=== PATIENT | male | born 1950 | race Caucasian/White ===

== ENCOUNTER 2020-01-04 07:45 | Day surgery (SDC) | payer MEDICARE, MEDICAID, SELFPAY ==
[2020-01-03 15:33] VITALS: BMI 20.7
[2020-01-04 08:14] VITALS: BP 155/111; PULSE 104; RESP 18; TEMP 37.2; O2SAT 98
[2020-01-04] MEDS: sodium chloride 0.9% 1,000 ML 30 ML IV (08:35)
--- NOTE | 2020-01-04 09:15 | ANES.PREANE2 ---
Pre-Anesthetic Assessment Pre-Anesthetic Assessment: Height/Weight: Height 1.83 m Weight 69.4 kg Temp Pulse Resp BP Pulse Ox 98.9 F 104 H 18 155/111 98 01/04/20 08:14 01/04/20 08:14 01/04/20 08:14 01/04/20 08:14 01/04/20 08:14 Preop Diagnosis: inguinal hernia Proposed Procedure: Operation Date: 01/04/20 09:00 Proposed Procedures p Inguinal Hernia Repair w/ Mesh(Right) - Dawson Burrell MD Familial anesthetic complications: none Last intake: Intake Last Liquid Date 01/03/20 Last Liquid Time 20:30 Last Solid Date 01/03/20 Last Solid Time 20:30 Social: Social History: No alcohol and No tobacco Exam: Pre-Anes Outpt Exam: alert, oriented x 3, clear to auscultation bilaterally and regular rate & rhythm Airway: MP: 2 Dentition: Full CV/HEM: CV/HEM: HTN Metabolic: Metabolic: Hyperlipidemia Musc/skel: Musc/skel: Lower Back Pain Anesthetic Plan: ASA status: 2 Anesthesia: General Other: History was obtained from chart review Risk of > 500 ml blood loss (7ml/kg in children): No Meds/Allergies Current Medications: Current Medications Generic Name Dose Route Start Last Admin Trade Name Freq PRN Reason Stop Dose Admin Sodium Chloride 1,000 mls @ 30 ml s/hr 01/04/20 08:00 01/04/20 08:35 Sodium Chloride 0.9% IV 01/05/20 07:59 30 mls/hr .Q24H VEDA Administration Data Anesthesia Cardiac Studies: No Data to Display
--- NOTE | 2020-01-04 09:15 | W.PM.OPSUD ---
Surgery/Procedure H&P Update DATE OF PROCEDURE: January 04, 2020 DATE H&P PERFORMED: 01/02/20 H&P UPDATE INFORMATION: No changes to prior documentation PLANNED PROCEDURE: Operation Date: 01/04/20 09:00 Proposed Procedures p Inguinal Hernia Repair w/ Mesh(Right) - Dawson Burrell MD
--- NOTE | 2020-01-04 10:11 | PM.OP ---
Operative Report Date of procedure: January 04, 2020 Pre-op Diagnosis: Right inguinal hernia. Post-op Diagnosis: Right indirect inguinal hernia. Procedure Done: Repair of right inguinal hernia with mesh. Implants: Medium mesh plug/onlay patch. Pathology: none sent Surgeon: Dawson Burrell Anesthesia: MAC Estimated blood loss (mL): 5 Complications: None. Condition: stable Disposition: same day Procedure: The patient was brought to the operating room and was placed in a supine position on the operating room table. A monitored anesthetic was induced. The right inguinal region was prepped and draped in a sterile fashion. A combination of 1% lidocaine and 0.5% bupivacaine with 1-200,000 parts epinephrine was used for local anesthesia throughout the procedure. A transverse incision was carried out above the level of the pubic tubercle. Cautery was used to divide the subcutaneous tissue down to the external oblique aponeurosis which was incised in parallel with its fibers over the inguinal canal. The spermatic cord was looped with a Barrington drain. An indirect hernia was found at the internal ring. The hernia sac and contents were carefully freed from the cord structures down to the internal ring and the hernia sac was reduced. A medium mesh plug was used to hold the hernia sac in a reduced position and was held in place with a suture of 0 Prolene that was used to connect the conjoined area medially to the reflecting edge of Poupart's ligament laterally. The onlay patch was anchored at the tubercle with a suture of 0 Prolene and was laid along the inguinal canal floor, allowing the cord structures to pass through the precut hole in the mesh. The two wings of mesh were sewn to each other above the level of the internal ring with a suture of 0 Prolene. The external oblique aponeurosis was closed over the top of the cord using a running suture of 3-0 Vicryl. The wound was irrigated with saline. The subcutaneous tissue was brought together with a simple suture of 3-0 Vicryl and the skin was approximated using a running subcuticular suture of 3-0 Vicryl. Benzoin and Steri-Strips were placed over the incision and a sterile bandage followed. The patient was taken to the recovery area in stable condition postoperatively.
[2020-01-04 10:15] VITALS: BP 134/87; PULSE 112; RESP 20; TEMP 36.4; O2SAT 95
[2020-01-04 10:34] VITALS: BP 137/69; PULSE 103; RESP 20; TEMP 36.4; O2SAT 99
== END 2020-01-04 11:01 | disposition home or self-care (01) ==
PROVIDERS: PCP Family Medicine; Visit Provider Surgery
PROC: (CPT 49505; principal; 2020-01-04 09:00)
DX: K40.90 Unilateral inguinal hernia, without obstruction or gangrene, not specified as recurrent (principal); K21.9 Gastro-esophageal reflux disease without esophagitis; I10 Essential (primary) hypertension; E78.5 Hyperlipidemia, unspecified
CPT/HCPCS: 49505; 12345; J0690; J2001; J2250; J2704; J3010; J3490; J7030

== ENCOUNTER 2020-08-11 16:39 | Emergency (ER) | payer MEDICARE, MEDICAID, SELFPAY ==
--- NOTE | 2020-08-11 16:58 | XRR_ITS ---
PROCEDURE INFORMATION: Exam: XR Chest, 1 View Exam date and time: 08/11/2020 4:59 PM Age: 70 years old Clinical indication: Pain; Other: Weakness TECHNIQUE: Imaging protocol: XR of the chest Views: 1 view. COMPARISON: CR Chest 2 views* [id number] 01/24/2016 7:19 AM FINDINGS: Lungs: The visualized portions of the lungs are clear. Pleural space: Unremarkable. No pleural effusion. No pneumothorax. Heart/Mediastinum: Heart is within normal limits of size. Vasculature: Descending thoracic aorta is somewhat tortuous. Bones/joints: Unremarkable. Other findings: Findings are not significantly changed from the 01/24/2016. XR/XR chest 1V portable [id number] IMPRESSION: No acute infiltrate.
--- NOTE | 2020-08-11 16:58 | ECG_ITS ---
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 Measurements Intervals [place] Rate: 97 P: 7 IL: 167 QRS: -40 QRSD: 93 T: 6 QT: 377 QTc: 479 Interpretive Statements SINUS RHYTHM LEFT AXIS DEVIATION [QRS AXIS < -30] POSSIBLE LEFT VENTRICULAR HYPERTROPHY [VOLTAGE CRITERIA PLUS LAE OR QRS WIDENING] No previous ECG available for comparison Electronically Signed On 08-12-2020 16:51:28 REHAB DIRECTOR OCCUPATIONAL THERAPIST by Asael Ibarra M.D. [email or web address]
--- NOTE | 2020-08-11 16:58 | CTR_ITS ---
PROCEDURE INFORMATION: Exam: CT Head Without Contrast Exam date and time: 08/11/2020 5:06 PM Age: 70 years old Clinical indication: Patient HX: C/O dizziness and weakness since cataract surgery 2 weeks ago TECHNIQUE: Imaging protocol: Computed tomography of the head without contrast. Radiation optimization: All CT scans at this facility use at least one of these dose optimization techniques: automated exposure control; mA and/or kV adjustment per patient size (includes targeted exams where dose is matched to clinical indication); or iterative reconstruction. 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 There is moderate cortical atrophy. There is no intracranial mass, hemorrhage or edema. Cerebral ventricles: No ventriculomegaly. Bones/joints: Unremarkable. No acute fracture. Paranasal sinuses: There is some fluid in the left sphenoid sinus which may represent some mild sinusitis. Mastoid air cells: There is minimal opacification of the mastoid tips which may not be clinically significant. Soft tissues: Unremarkable. CT/CT head wo con* [id number] IMPRESSION: 1. No acute intracranial finding. 2. Mild left sphenoid sinus disease. Radiation Dose CTDIVOL = (mGy): DLP = 754.83 (mGy-cm)
[2020-08-11 17:01] VITALS: BP 145/108; PULSE 101; RESP 14; TEMP 36.9; O2SAT 96; BMI 20.3
--- NOTE | 2020-08-11 17:07 | ED_ITS ---
HPI - Weakness General: Chief complaint: Weakness Stated complaint: WEAKNESS Time Seen by Provider: 08/11/20 16:53 Source: patient Mode of arrival: ambulatory Limitations: no limitations History of Present Illness: HPI Narrative: 70-year-old male states he had cataract surgery on his right eye 2 weeks ago. He states that since then he has just been feeling generally weak. Per family patient is a lot more activity than normal. He has had mild headaches. He denies any cough or fever. Denies any vomiting or diarrhea. Denies any worsening or improving factors. Associated symptoms: Denies chest pain, chills, dysuria, easy bruising, fever(s), nausea or vomiting Review of Systems Const: Denies: fever(s), chills, body aches or change in appetite Eyes: Denies: blurry vision or eye discomfort ENMT: Denies: throat pain or dental pain Card: Denies: chest pain Resp: Denies: dyspnea GI: Denies: abdominal pain, nausea, vomiting or diarrhea : Denies: dysuria Musc: Denies: neck pain or back pain Skin/Breast: Denies: rash Neuro: Reports: weakness in extremities Psych: Denies: depression Mendez/Lymph: Denies: easy bruising All/Imm: Denies: urticaria Physical Exam Const: COMMON NORMALS: no acute distress, patient oriented x3 and healthy appearing HENMT: COMMON NORMALS: normocephalic and atraumatic HEAD & SCALP: normocephalic and atraumatic Eye: COMMON NORMALS: Equal, round and reactive pupils present and EOMs intact bilaterally PUPIL: Yes Equal, round and reactive pupils present Neck/C-Spine: COMMON NORMALS: full ROM and supple Chest: COMMONS NORMALS: normal inspection of the chest and normal palpation of entire chest wall Resp: COMMON NORMALS: normal respiratory effort, No retractions, No use of ac cessory muscles and clear to auscultation bilaterally AUSCULTATION: clear to auscultation bilaterally Cardio: COMMON NORMALS: regular rate, regular rhythm and No murmurs present (Cardio) RATE: regular rate RHYTHM: regular rhythm GI: COMMON NORMALS: Normal to inspection, nondistended, normoactive bowel sounds present, Soft to palpation, non-tender and no masses PALPATION: Yes Soft to palpation Extremity: COMMON NORMALS: normal to inspection and full ROM Neuro: COMMON NORMALS: patient oriented x3, moves all extremities and no focal motor deficits Psych: COMMON NORMALS: mental status grossly normal, Normal thought process present and cooperative THOUGHT PROCESS: Normal thought process present Skin: COMMON NORMALS: no rashes or lesions noted and no wounds GENERAL SKIN EXAM: no rashes or lesions noted Course Vital Signs: Vital signs: Vital Signs Temperature 98.5 F 08/11/20 17:01 Pulse Rate 92 08/11/20 18:51 Respiratory Rate 18 08/11/20 18:51 Blood Pressure 156/107 08/11/20 18:51 Pulse Oximetry 96 08/11/20 18:51 MDM - Weakness MDM Narrative: Medical decision making narrative: Patient presents here with generalized weakness that is improved with IV fluids. Patient's blood work here is all normal including a normal CT head. Patient is stable for discharge and is to follow-up with PCP and return if worsening. Lab Data: Labs: Lab Results 08/11/20 08/11/20 08/11/20 Range/Units 17:12 17:12 17:49 WBC 9.2 (4.0-10.0) 10^3/ uL RBC 4.77 (4.1-5.3) 10^6/u L Hgb 14.2 (11.7-16.6) g/dL Hct 42.0 (42.0-52.0) % MCV 88.1 (80-94) fL MCH 29.8 (28.0-34.0) pg MCHC 33.8 (30.0-36.0) g/dL RDW 12.8 (12.1-15.1) % Plt Count 285 (130-400) 10^3/c mm MPV 9.9 (7.4-10.4) fL Neut % (Auto) 73.9 % Lymph % (Auto) 17.7 % Gregg % (Auto) 7.4 % Eos % (Auto) 0.5 % Baso % (Auto) 0.3 % Neut # (Auto) 6.79 (1.8-7.7) 10^3/u L Lymph # (Auto) 1.6 (0.8-4.8) 10^3/u L Gregg # (Auto) 0.7 (0.2-0.9) 10^3/u L Eos # (Auto) 0.1 (0.0-0.8) 10^3/u L Baso # (Auto) 0.0 (0.0-0.1) 10^3/u L Nucleated RBC % (a uto) 0 % Nucleated RBCs # 0.0 /100WBC Sodium 141 (136-145) mmol/L Potassium 3.7 (3.5-5.1) mmol/L Chloride 104 (98-107) mmol/L Carbon Dioxide 25 (22-29) mmol/L Anion Gap 15.7 (5-19) BUN 12 (8-23) mg/dL Creatinine 0.7 (0.7-1.2) mg/dL GFR Calculation 112.1 (90-130) mL/min Glucose 104 (65-115) mg/dL Calculated Osmolal ity 292 (285-295) mOsm/k g Calcium 8.8 (8.5-10.5) mg/dL Total Bilirubin 0.8 (0.15-1.2) mg/dL AST 36 (0-40) U/L ALT 38 (0-41) U/L Alkaline Phosphata se 47 (40-130) IU/L Total Protein 6.9 (6.6-8.7) g/dL Albumin 3.8 (3.5-5.2) g/dL Globulin 3.1 (1.3-4.6) g/dL Urine Color Yellow (Yellow) Urine Appearance Clear (CLEAR) Urine pH 7 (5-7) Ur Specific Gravit y 1.015 (1.005-1.030) Urine Protein Neg (Negative) Urine Glucose (UA) Norm (Normal) Urine Ketones 2+ H (Negative) Urine Blood Neg (Negative) Urine Nitrate Negative (Negative) Urine Bilirubin Neg (Negative) Urine Urobilinogen 1 H (Negative) mg/dL Ur Leukocyte Moraima ase Negative (Negative) Imaging Data^: CT Head: Radiologist's impression: [facility] [address] [place] [address] CT Scan Report Signed Patient: Fito Haywood Unit #: [id number] : 1950 Age/Sex: 70 / M ADM Date: 08/11/20 Loc: ER Room/Bed: Attending Dr: Ordering Provider/Ordering MD: Azar Mendoza MD Date of Service: 08/11/20 Procedure(s): CT head wo con* [id number] Accession Number(s): [id number] Report Number: [id number] PROCEDURE INFORMATION: Exam: CT Head Without Contrast Exam date and time: 08/11/2020 5:06 PM Age: 70 years old Clinical indication: Patient HX: C/O dizziness and weakness since cataract surgery 2 weeks ago TECHNIQUE: Imaging protocol: Computed tomography of the head without contrast. Radiation optimization: All CT scans at this facility use at least one of these dose optimization techniques: automated exposure control; mA and/or kV adjustment per patient size (includes targeted exams where dose is matched to clinical indication); or iterative reconstruction. 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 There is moderate cortical atrophy. There is no intracranial mass, hemorrhage or edema. Cerebral ventricles: No ventriculomegaly. Bones/joints: Unremarkable. No acute fracture. Paranasal sinuses: There is some fluid in the left sphenoid sinus which may represent some mild sinusitis. Mastoid air cells: There is minimal opacification of the mastoid tips which may not be clinically significant. Soft tissues: Unremarkable. CT/CT head wo con* [id number] IMPRESSION: 1. No acute intracranial finding. 2. Mild left sphenoid sinus disease. CXR: Radiologist's impression: [address] [address] XRay Report Signed Patient: Fito Haywood Unit #: [id number] : 1950 Age/Sex: 70 / M ADM Date: 08/11/20 Loc: ER Room/Bed: Attending Dr: Ordering Provider/Ordering MD: Azar Mendoza MD Date of Service: 08/11/20 Procedure(s): XR chest 1V portable [id number] Accession Number(s): [id number] Report Number: [id number] PROCEDURE INFORMATION: Exam: XR Chest, 1 View Exam date and time: 08/11/2020 4:59 PM Age: 70 years old Clinical indication: Pain; Other: Weakness TECHNIQUE: Imaging protocol: XR of the chest Views: 1 view. COMPARISON: CR Chest 2 views* [id number] 01/24/2016 7:19 AM FINDINGS: Lungs: The visualized portions of the lungs are clear. Pleural space: Unremarkable. No pleural effusion. No pneumothorax. Heart/Mediastinum: Heart is within normal limits of size. Vasculature: Descending thoracic aorta is somewhat tortuous. Bones/joints: Unremarkable. Other findings: Findings are not significantly changed from the 01/24/2016. XR/XR chest 1V portable [id number] IMPRESSION: No acute infiltrate. EKG Data^: EKG 1: Attestation: I personally reviewed and interpreted this EKG as follows: EKG interpretation date: 08/11/20 EKG interpretation time: 17:47 Interpretation: nsr hr [address] or t wave abnormalities qrs 93 qtc 431 Discharge Plan Discharge Patient Disposition: Home Clinical Impression: Weakness Condition: Stable Prescriptions: No Action pantoprazole 40 mg tablet,delayed release (DR/EC) 40 mg PO DAILY RF: 0 DOK 100 mg capsule 100 mg PO DAILY RF: 0 hydrocodone-acetaminophen 5-325 mg tablet 1 - 2 tab PO Q5H PRN (Reason: pain) Qty: 30 RF: 0 Discharge Orders: Discharge ED (Routine); Ordered 08/11/20 Ordered By: Azar Mendoza Referrals: Wilman Anand MD [Primary Care Provider] - 1-3 days Discharge Diet: Advance as tolerated Discharge Activity: Resume usual activity Patient Instructions: Weakness (ED) Coding Level of Care Code ED [place] Machine Tender for Chg Fwd Exam Comprehensive
[2020-08-11 17:19] LABS: Basophils % 0.3 %; Eosinophils # 0.1 10^3/uL (0.0-0.8); Eosinophils % 0.5 %; Hemoglobin 14.2 g/dL (11.7-16.6); Lymphocytes # 1.6 10^3/uL (0.8-4.8); Lymphocytes % 17.7 %; Mean Corpuscular HGB Conc 33.8 g/dL (30.0-36.0); Mean Corpuscular Hemoglobin 29.8 pg (28.0-34.0); Mean Corpuscular Volume 88.1 fL (80-94); Mean Platelet Volume 9.9 fL (7.4-10.4); Monocytes # 0.7 10^3/uL (0.2-0.9); Monocytes % 7.4 %; Neutrophils # 6.79 10^3/uL (1.8-7.7); Neutrophils % 73.9 %; Nucleated Red Blood Cells % 0 %; Platelet Count 285 10^3/cmm (130-400); Red Blood Count 4.77 10^6/uL (4.1-5.3); Red Cell Distribution Width 12.8 % (12.1-15.1); White Blood Count 9.2 10^3/uL (4.0-10.0)
[2020-08-11] MEDS: sodium chloride 0.9% 1,000 ML 999 ML IV (17:27)
[2020-08-11 17:37] LABS: Alanine Aminotransferase 38 U/L (0-41); Albumin Level 3.8 g/dL (3.5-5.2); Alkaline Phosphatase 47 IU/L (40-130); Anion Gap 15.7 (5-19); Aspartate Amino Transferase 36 U/L (0-40); Blood Urea Nitrogen 12 mg/dL (8-23); Calcium 8.8 mg/dL (8.5-10.5); Carbon Dioxide 25 mmol/L (22-29); Chloride 104 mmol/L (98-107); Globulin 3.1 g/dL (1.3-4.6); Glomerular Filtration Rate 112.1 mL/min (90-130); Glucose 104 mg/dL (65-115); Osmolality Calculated 292 mOsm/kg (285-295); Potassium 3.7 mmol/L (3.5-5.1); Sodium 141 mmol/L (136-145); Total Bilirubin 0.8 mg/dL (0.15-1.2); Total Protein 6.9 g/dL (6.6-8.7)
[2020-08-11 18:11] LABS: Add Urine Microscopic? NO; Bilirubin Urine Neg (Negative); Blood Urine Neg (Negative); Glucose Urine UA Norm (Normal); Ketones Urine 2+ (Negative); Leukocyte Esterase Urine Negative (Negative); Nitrate Urine Negative (Negative); Protein Urine Neg (Negative); Specific Gravity, Urine 1.015 (1.005-1.030); Urine Appearance Clear (CLEAR); Urine Color Yellow (Yellow); Urobilinogen Urine 1 mg/dL (Negative); pH Urine 7 (5-7)
[2020-08-11 18:51] VITALS: BP 156/107; PULSE 92; RESP 18; O2SAT 96
== END 2020-08-11 19:20 | disposition home or self-care (01) ==
PROVIDERS: Emergency Provider Emergency Medicine; PCP Family Medicine
DX: R53.1 Weakness (principal)
CPT/HCPCS: 12345; 70450; 71045; 80053; 81003; 85025; 93005; 96360; 99282; 99283; J7030

== ENCOUNTER 2020-12-09 06:00 | Outpatient (RCR) | payer MEDICARE, MEDICAID, SELFPAY | END 2020-12-13 23:59 | disposition home or self-care (01) | LOC: SPT 06:00 | PROVIDERS: PCP Family Medicine; Referring Provider Family Medicine; Visit Provider Family Medicine | DX: H83.09 Labyrinthitis, unspecified ear (principal) | CPT/HCPCS: 95992; 97162 ==

== ENCOUNTER 2021-02-21 09:13 | Outpatient (CLI) | payer MEDICARE, MEDICAID, SELFPAY ==
--- NOTE | 2021-02-21 | USCV_ITS ---
Fito Haywood Age: 70 Gender: M : 1950 Exam Date: 02/21/2021 09:22 Ordering Phys: Petrona Jones MD ([email or web address]) Technologist: Jennifer Ramirez Exam Location: [facility] [place] Indication: syncope and collapse BP: / HR: 71 Rhythm: Sinus Technical Quality: Adequate MEASUREMENTS (Male / Female) Normal Values 2D ECHO LV Diastolic Diameter PLAX 3.7 cm 4.2 - 5.9 / 3.9 - 5.3 cm LV Systolic Diameter PLAX 2.3 cm IVS Diastolic Thickness 1.3 cm 0.6 - 1.0 / 0.6 - 0.9 cm IVS Systolic Thickness 1.7 cm LVPW Diastolic Thickness 1.2 cm 0.6 - 1.0 / 0.6 - 0.9 cm LVPW Systolic Thickness 1.8 cm LVOT Diameter 2.0 cm LV Ejection Fraction 2D Teich 70.8 % LV Ejection Fraction MOD 2C 58.1 % LV Ejection Fraction 2C AL 59.4 % LA Diameter 3.7 cm LA Width 3.4 cm LA Height 4.1 cm RA Width 3.2 cm RA Height 4.4 cm Aorta at Sinotubular Diameter 3.2 cm M-MODE LV Diastolic Diameter MM 5.6 cm 4.2 - 5.9 / 3.9 - 5.3 cm LV Systolic Diameter MM 4.4 cm LV Ejection Fraction MM Teich 40.7 % IVS Diastolic Thickness MM 0.4 cm 0.6 - 1.0 / 0.6 - 0.9 cm IVS Systolic Thickness MM 0.4 cm LVPW Diastolic Thickness MM 0.9 cm 0.6 - 1.0 / 0.6 - 0.9 cm LVPW Systolic Thickness MM 1.7 cm Aortic Annulus Diameter 3.6 cm LA Ao Ratio MM 1.1 MV E Point Septal Separation 0.8 cm DOPPLER AV Peak Velocity 84.0 cm/s LVOT Peak Velocity 76.0 cm/s AV Area Cont Eq vti 3.3 cm squared AV Area Cont Eq pk 2.9 cm squared MV Peak Velocity 111.0 cm/s MV Area PHT 4.2 cm squared Mitral E to A Ratio 0.9 MV E' Velocity 43.0 cm/s Mitral E to MV E' Ratio 9.9 Mitral E to LV E' Lateral Ratio 9.2 Mitral E to LV E' Septal Ratio 10.8 TR Peak Velocity 48.0 cm/s TR Peak Gradient 0.9 mmHg Right Atrial Pressure 3.0 mmHg Pulmonary Artery Systolic Pressu 3.9 mmHg PV Peak Velocity 63.0 cm/s RV Acceleration Time 0.1 s RV Ejection Time 0.3 s RV AcT/ET 0.4 FINDINGS Left Ventricle Normal left ventricular cavity size. Normal left ventricular systolic function. No regional wall motion abnormalities. Left ventricular ejection fraction is estimated at 60 %. Grade I/IV diastolic dysfunction (abnormal relaxation filling pattern), normal to mildly elevated filling pressures. Right Ventricle The right ventricle is normal in size and function. Right Atrium The right atrium is normal in size. Left Atrium The left atrium is normal in size. Mitral Valve Mildly thickened mitral valve. No mitral valve stenosis. Moderate mitral valve regurgitation. Aortic Valve Aortic valve sclerosis. No aortic valve stenosis. Trace aortic valve regurgitation. Tricuspid Valve Structurally normal tricuspid valve without significant stenosis or regurgitation. Pulmonary artery systolic pressure is normal. Pulmonic Valve Mild pulmonary valve regurgitation. Pericardium Normal pericardium without effusion. Aorta Normal ascending aorta dimension. CONCLUSIONS 1-Normal left ventricular cavity size. Normal left ventricular systolic function. No regional wall motion abnormalities. Left ventricular ejection fraction is estimated at 60 %. Grade I/IV diastolic dysfunction (abnormal relaxation filling pattern), normal to mildly elevated filling pressures. 2-Mildly thickened mitral valve. No mitral valve stenosis. Moderate mitral valve regurgitation. 3-Aortic valve sclerosis. No aortic valve stenosis. Trace aortic valve regurgitation. 4-There is no pericardial effusion. 5-Pulmonary artery systolic pressure is within normal limits. 6-Right atrial pressure is around 5 mm of mercury. 7-There are no prior echocardiogram studies to compare. Petrona Jones MD (Electronically Signed) Final Date: 25 February 2021 17:26 S
== END 2021-02-21 09:14 | disposition home or self-care (01) ==
LOC: US 09:13
PROVIDERS: PCP Family Medicine; Visit Provider Internal Medicine Cardiovascular Disease
DX: R55 Syncope and collapse (principal); I08.0 Rheumatic disorders of both mitral and aortic valves
CPT/HCPCS: 93306

== ENCOUNTER → 2021-12-18 10:27 | Outpatient (BNVA) | payer MEDICARE, MEDICAID, SELFPAY | PROVIDERS: PCP Family Medicine; Visit Provider Internal Medicine Cardiovascular Disease | DX: R00.2 Palpitations (principal); I10 Essential (primary) hypertension; I47.2 Ventricular tachycardia | CPT/HCPCS: 99213; 99214 ==

== ENCOUNTER → 2022-06-18 13:43 | Outpatient (BNVA) | payer MEDICARE, MEDICAID, SELFPAY | PROVIDERS: PCP Family Medicine; Visit Provider Internal Medicine Cardiovascular Disease | DX: R00.2 Palpitations (principal); I47.20 Ventricular tachycardia, unspecified | CPT/HCPCS: 99213; 99214 ==

== ENCOUNTER → 2023-06-17 14:39 | Outpatient (BNVA) | payer MEDICARE, MEDICAID, SELFPAY | PROVIDERS: PCP Family Medicine; Visit Provider Internal Medicine Cardiovascular Disease | DX: G20.A1 Parkinson's disease without dyskinesia, without mention of fluctuations (principal); I47.29 Other ventricular tachycardia; R00.2 Palpitations; E55.9 Vitamin D deficiency, unspecified; E78.5 Hyperlipidemia, unspecified | CPT/HCPCS: 36415; 80053; 80061; 82306; 82607; 82746; 84443; 85025; 99214 ==

== ENCOUNTER → 2023-07-20 08:09 | Outpatient (BNVA) | payer MEDICARE, MEDICAID, SELFPAY | PROVIDERS: PCP Family Medicine; Referring Provider Family Medicine; Visit Provider Surgery | DX: K46.9 Unspecified abdominal hernia without obstruction or gangrene (principal); G20.A1 Parkinson's disease without dyskinesia, without mention of fluctuations | CPT/HCPCS: 99204 ==

== ENCOUNTER → 2023-10-19 08:21 | Outpatient (BNVA) | payer MEDICARE, MEDICAID, SELFPAY | PROVIDERS: PCP Family Medicine; Visit Provider Surgery | DX: K40.90 Unilateral inguinal hernia, without obstruction or gangrene, not specified as recurrent (principal) | CPT/HCPCS: 99213 ==

== ENCOUNTER 2024-05-31 17:02 | Emergency (ER) | payer MEDICARE, MEDICAID, SELFPAY ==
[2024-05-31 17:11] VITALS: BP 142/97; PULSE 107; RESP 16; O2SAT 94; BMI 20.3
--- NOTE | 2024-05-31 17:13 | XRR_ITS ---
PROCEDURE INFORMATION: Exam: XR Right Shoulder Exam date and time: 05/31/2024 6:07 PM Age: 74 years old Clinical indication: Injury or trauma; Fall; Fracture, traumatic injury; Closed fracture; Humerus; Right; Additional info: Fall, R shoulder pain and limited rom TECHNIQUE: Imaging protocol: Radiologic exam of the right shoulder. Views: 2 or more views. COMPARISON: CR XR chest 1V portable [id number] 08/11/2020 4:59 PM FINDINGS: Bones/joints: Comminuted displaced angulated fractures involving the proximal humeral shaft. Soft tissues: Normal. Other findings: Metallic postoperative changes over the thoracolumbar spine with metallic artifact. XR/XR shoulder RT min 2V* [id number] IMPRESSION: Comminuted displaced angulated fractures involving the proximal humeral shaft.
[2024-05-31] MEDS: HYDROcodone-acetaminophen 5-325 mg Tablet 1 TAB PO ×2 (18:14→19:20)
--- NOTE | 2024-05-31 19:05 | W.ED.EXTPRO ---
HPI - Extremity Problem General: Chief complaint: Extremity Injury, Upper Stated complaint: right shoulder/arm injury fall Time Seen by Provider: 05/31/24 17:32 Source: patient Mode of arrival: ambulatory Limitations: language barrier History of Present Illness: Patient is a 74-year-old male who was brought in by family for right upper extremity injury prior to arrival. Patient speaks foreign language, airplane charter clerk is his son. Son stated that he fell earlier directly onto his right elbow, has been reporting significant right shoulder pain with obvious deformity. He states that patient has been displaying limited range of motion secondary to the pain. Patient has not had any issues distally in terms of sensory loss or paresthesias/paralysis. No other injuries with the fall, he did not hit his head and is not on a blood thinner. MD Complaint: joint pain Onset (ago): hour(s) Pain Consistency: constant Location: right and upper extremity (Shoulder) Exacerbating factors: range of motion Associated symptoms: Deny chest pain, fever(s) or rash Related Data Home Medications Medication Instructions Recorded Confirmed linaclotide 145 mcg capsule 145 mcg PO DAILY 01/02/21 10/19/23 (Linzess) multivitamin 1 tab PO DAILY 12/18/21 10/19/23 Previous Rx's Medication Instructions Recorded metoprolol succinate 25 mg 25 mg PO .HS #90 tabs 12/18/21 tablet,extended release 24 hr hydrocodone 5 mg-acetaminophen 300 1 tab PO Q8H PRN pain #10 tabs 05/31/24 mg tablet Allergies Allergy/AdvReac Type Severity Reaction Status Date / Time No Known Allergies Allergy Verified 10/19/23 08:26 Review of Systems General: Reports: 10 or more systems reviewed and unremarkable except in HPI and below Const: Denies: fever(s) or chills Card: Denies: chest pain Resp: Denies: dyspnea or productive cough GI: Denies: abdominal pain, nausea, vomiting or diarrhea : Denies: flank pain Musc: Reports: joint pain (Right shoulder pain) and limited range of motion; Denies: neck pain, back pain, extremity pain, extremity swelling, joint swelling, joint redness, joint warmth or muscle weakness Skin/Breast: Denies: rash Neuro: Denies: headache(s), numbness in extremities or weakness in extremities PFS ED PFSH: Medical History Hx of gastroesophageal reflux (GERD) History of back pain Hx of hyperlipidemia Elevated PSA Lower urinary tract symptoms (LUTS) Mitral valve regurgitation Palpitation Hx of primary hypertension Surgical History History of back surgery Family History Other CAD (coronary artery disease) Diabetes Denies family history of Cancer Hypertension Social History Smoking and tobacco/nicotine status: never used tobacco/nicotine Physical Exam Const: COMMON NORMALS: no acute distress, patient oriented x3, no limitations, healthy appearing, alert and well nourished HENMT: COMMON NORMALS: normocephalic and atraumatic HEAD & SCALP: normocephalic and atraumatic Neck/C-Spine: COMMON NORMALS: full ROM, supple and no meningeal signs Resp: COMMON NORMALS: normal respiratory effort, No use of accessory muscles and clear to auscultation bilaterally AUSCULTATION: clear to auscultation bilaterally Cardio: COMMON NORMALS: regular rate and regular rhythm RATE: regular rate RHYTHM: regular rhythm Extremity: COMMON NORMALS: capillary refill normal, no joint enlargement and no clubbing, cyanosis or edema NARRATIVE EXTREMITY EXAM: Obvious deformity of the proximal right humerus. No bruising or swelling. Area seems to be tender to palpation, and there is pain with any range of motion at the shoulder. Distally, he has a 2+ radial pulse and has no wrist drop. Normal elbow examination. Normal neck examination. Neuro: COMMON NORMALS: patient oriented x3, moves all extremities, no focal motor deficits and no sensory deficits noted SENSORIUM/ORIENTATION: Yes alert MENINGEAL SIGNS: Yes no meningeal signs Skin: COMMON NORMALS: no rashes or lesions noted GENERAL SKIN EXAM: no rashes or lesions noted Course Vital Signs: Vital signs: Vital Signs Pulse Rate 98 05/31/24 19:26 Respiratory Rate 16 05/31/24 17:11 Blood Pressure 121/83 05/31/24 19:26 Pulse Oximetry 96 05/31/24 19:26 Oxygen Delivery Me thod Room Air 05/31/24 17:11 MDM - Extremity (Nontraumatic) Medical Decision Making Patient seen for a right upper extremity injury, he there was an obvious deformity to the right shoulder. Patient's history translated by son. He was given [place] for pain. X-ray did show a comminuted displaced fracture of the right proximal humerus, pictures were sent to orthopedist, Dr. Dodson. He states that this can be placed in a sling and follow-up with him in the office. We will prescribe a few hydrocodone for pain control and return cautions given such that if he does start to have any neurovascular issues he is to return. All other questions and concerns addressed. Lab Data Radiology Impressions Shoulder X-Ray 05/31/24 17:13 IMPRESSION: Comminuted displaced angulated fractures involving the proximal humeral shaft. All radiology interpretation(s) finalized by discharge Discharge Plan Discharge Patient Disposition: Home Clinical Impression: Fracture of humerus, proximal, right, closed Condition: Stable Prescriptions: New hydrocodone-acetaminophen 5-300 mg tablet 1 tab PO Q8H PRN (Reason: pain) Qty: 10 0RF No Action multivitamin Tablet 1 tab PO DAILY metoprolol succinate 25 mg tablet extended release 24 hr 25 mg PO .HS Qty: 90 3RF Linzess 145 mcg capsule 145 mcg PO DAILY Discharge Orders: Discharge ED (Routine); Ordered 05/31/24 Ordered By: Noe Yousif Referrals: Wilman Anand MD [Primary Care Provider] - Patient Instructions: Proximal Humerus Fracture (ED) Activity Restrictions/Additional Instructions: Sling. Follow-up with orthopedics as discussed. Pain medications as prescribed. Return with any new or worsening symptoms, such as if you cannot extend your wrist or if you lose feeling in your right arm. Coding Level of Care Code ED Regulatory Affairs Specialist for Cliff Castañeda
[2024-05-31 19:26] VITALS: BP 121/83; PULSE 98; O2SAT 96
--- NOTE | 2024-06-01 07:51 | DCPLANNER ---
messaged ortho for er f/u
== END 2024-05-31 19:25 | disposition home or self-care (01) ==
PROVIDERS: Emergency Provider Physician Assistant; PCP Family Medicine
DX: S42.201A Unspecified fracture of upper end of right humerus, initial encounter for closed fracture (principal); W19.XXXA Unspecified fall, initial encounter; I10 Essential (primary) hypertension; E78.5 Hyperlipidemia, unspecified
CPT/HCPCS: 73030; 99283

== ENCOUNTER → 2024-06-06 09:52 | Outpatient (BNVA) | payer MEDICARE, MEDICAID, SELFPAY | PROVIDERS: PCP Family Medicine; Visit Provider Student in an Organized Health Care Education/Training Program | DX: S42.201A Unspecified fracture of upper end of right humerus, initial encounter for closed fracture (principal); W18.39XA Other fall on same level, initial encounter | CPT/HCPCS: 73030; 73060; 99204 ==

== ENCOUNTER 2024-06-06 13:58 | Outpatient (CLI) | payer MEDICARE, MEDICAID, SELFPAY | END 2024-06-06 13:59 | disposition home or self-care (01) | LOC: SPT 13:58 | PROVIDERS: PCP Family Medicine; Visit Provider Student in an Organized Health Care Education/Training Program | DX: Z46.89 Encounter for fitting and adjustment of other specified devices (principal); S42.201D Unspecified fracture of upper end of right humerus, subsequent encounter for fracture with routine healing; X58.XXXD Exposure to other specified factors, subsequent encounter | CPT/HCPCS: A4565 ==

== ENCOUNTER → 2024-06-20 15:25 | Outpatient (BNVA) | payer MEDICARE, MEDICAID, SELFPAY | PROVIDERS: PCP Family Medicine; Visit Provider Student in an Organized Health Care Education/Training Program | DX: S42.201A Unspecified fracture of upper end of right humerus, initial encounter for closed fracture (principal); X58.XXXA Exposure to other specified factors, initial encounter | CPT/HCPCS: 73030; 99213 ==

== ENCOUNTER 2024-11-09 09:10 | Inpatient (IN) | payer MEDICARE, MEDICAID, SELFPAY ==
[2024-11-09] VITALS (12 sets, daily range): BP systolic 79–127; BP diastolic 49–89; PULSE 79–100; RESP 15–18; TEMP 36.2–36.9; O2SAT 90–98; BMI 16.2
--- NOTE | 2024-11-09 09:25 | XR_ITS ---
WS: [id number] Exam: XR chest 1V portable [id number] Date/Time of Exam: 11/09/2024 9:35 AM Reason For Exam: dyspnea/cough Comparison 08/11/2020. There is atelectasis and/or infiltrate in the RIGHT lower lobe. Probable small RIGHT basal pleural effusion is noted. LEFT lung is clear. Heart size top limits normal. The mediastinum is unremarkable for portable technique. No pneumothorax. Several old LEFT rib fractures. Recommendations: A detailed PA and lateral chest x-ray would be helpful for further evaluation. XR/XR chest 1V portable [id number] IMPRESSION: 1. Atelectasis and probable infiltrate in the RIGHT lower lobe and RIGHT basal pleural effusion.
[2024-11-09 09:34] LABS: Basophils % 0.1 %; Eosinophils % 0.1 %; Hematocrit 43.3 % (37-53); Lymphocytes % 6.2 %; Mean Corpuscular HGB Conc 32.1 g/dL (30-55); Mean Corpuscular Hemoglobin 29.7 pg (27-33); Mean Corpuscular Volume 92.5 fl (82-101); Mean Platelet Volume 10.2 fL (7.4-10.4); Monocytes # 0.7 10^3/uL (0.2-0.9); Monocytes % 4.6 %; Neutrophils # 14.19 10^3/uL (1.8-7.7); Neutrophils % 88.4 %; Nucleated Red Blood Cells % 0 %; Platelet Count 184 10^3/cmm (157-399); Red Blood Count 4.68 10^6/uL (3.85-5.65); Red Cell Distribution Width 14.6 % (12.1-15.1); White Blood Count 16.04 10^3/uL (3.29-11.43)
--- NOTE | 2024-11-09 09:35 | ECG_ITS ---
[facility] Test Date: 2024-11-09 Pat Name: Fito Haywood Department: Room: Gender: Male Sheet Rock Hanger: : 1950 Requested By: Darron Escobar Order Number: [id number] Deborah MD: Anita Nam M.D. Measurements Intervals [place] Rate: 87 P: 34 NM: 175 QRS: -66 QRSD: 132 T: 36 QT: 381 QTc: 460 Interpretive Statements SINUS RHYTHM RIGHT BUNDLE BRANCH BLOCK [120+ ms QRS DURATION, UPRIGHT V1, 40+ ms S IN I/aVL/V4/V5/V6] LEFT ANTERIOR FASCICULAR BLOCK [QRS AXIS <= -45, QR IN I, RS IN II] POSSIBLE SEPTAL MYOCARDIAL INFARCTION , PROBABLY OLD [30 ms Q WAVE IN V1/V2] Compared to ECG 08/11/2020 17:47:11 Right bundle-branch block now present Left anterior fascicular block now present Myocardial infarct finding now present Left-axis deviation no longer present Electronically Signed On 11-09-2024 22:20:51 CDT by Anita Nam M.D. [email or web address]
[2024-11-09 09:40] LABS: ABG PCO2 38.7 mmHg (35-45); ABG PH Result 7.44 (7.35-7.45); Alveolar-Arterial Oxygen Gradi 4.5 mmHg (5-10); Arterial Blood Gas Hematocrit 42.2 % (42-52); Base Excess ABG 1.9 mmol/L (-2.0-2.0); Blood Gas Allen Test Pos; Blood Gas Operator Identificat MONRO; Blood Gas Sample Site Brachial, right; Blood Gas Sample Type Arterial; Carboxyhemoglobin 1.5 %THgb (0.4-20.1); HCO3 ABG 26.1 mmol/L (22-26); Ionized Calcium Level - ABG 1.2 mmol/L (1.1-1.4); Methemoglobin 0.5 % (0.4-1.5); Oxygen Device ROOM AIR; Oxygen Saturation ABG 93.8; PO2 ABG 67.8 mmHg (80.0-100.0); PO2 FiO2 Ratio Arterial Blood 322; Potassium Level - ABG 3.6 mmol/L (3.5-5.0); Total Hemoglobin 13.8 g/dL (14-18)
[2024-11-09 09:52] LABS: Alanine Aminotransferase 24 U/L (0-41); Albumin Level 3.5 g/dL (3.5-5.2); Alkaline Phosphatase 60 U/L (40-130); Anion Gap 15.8 (5-19); Aspartate Amino Transferase 17 U/L (0-40); Blood Urea Nitrogen 29 mg/dL (8-23); Calcium 8.7 mg/dL (8.5-10.5); Carbon Dioxide 24 mmol/L (22-29); Chloride 103 mmol/L (98-107); Creatine Phosphokinase 36 U/L (39-308); Creatinine Clr Calc Pharmacy 69.6138; Globulin 3.8 g/dL (1.3-4.6); Glucose 110 mg/dL (65-115); Lipase 9 U/L (13-60); Osmolality Calculated 294 mOsm/kg (285-295); Potassium 3.8 mmol/L (3.5-5.1); Sodium 139 mmol/L (136-145); Total Bilirubin 1.9 mg/dL (0.15-1.2); Total Protein 7.3 g/dL (6.6-8.7)
[2024-11-09 09:53] LABS: Lactic Sepsis W/Reflex 1.7 mmol/L (0.5-2.2)
--- NOTE | 2024-11-09 09:58 | CT_ITS ---
WS: [id number] CT CHEST, ABDOMEN, AND PELVIS TECHNIQUE: Contrast-enhanced CT of the chest, abdomen, and pelvis with coronal and sagittal reformatted images. CLINICAL INFORMATION: chest abd pain/leukocytosis COMPARISON: None. DLP: 865.[address] scans at [facility] use at least one of these dose optimization techniques: automated exposure control; mA and/or kV adjustment per patient size (includes targeted exams where dose is matched to clinical indication); or iterative reconstruction. CT CHEST: Normal caliber thoracic aorta. Proximal main pulmonary arteries are normal. No mediastinal or hilar lymphadenopathy. No axillary lymphadenopathy. No visualized acute rib fractures. Thoracic curve and kyphosis. Patchy infiltrates with consolidation in both lower lobes with air bronchograms compatible with pneumonia. Upper lobes are better aerated. Noncalcified 6 mm nodule RIGHT upper lobe. CT ABDOMEN AND PELVIS: Diffuse fatty infiltration of the liver. Normal portal vein and splenic vein. Adrenal glands are normal. Bilateral peripelvic renal cysts. Celiac and SMA are patent. Normal caliber abdominal aorta. Enlarged prostate measuring 4.6 cm. No free fluid in the abdomen or pelvis. No evidence of solid organ injury. Chronic appearing lower thoracic and lumbar spine compression fractures described below. Dorsal posterior element thoracolumbar fixation CT/CT chest abdpel w/*[id number] IMPRESSION: 1. Consolidation with patchy filtrates in the lung bases compatible with pneum onia. Air bronchograms in both lower lobes. 2. Upper lungs are better aerated. 3. Subcentimeter pulmonary nodule in RIGHT upper lobe measuring 6 mm recommend 6-month chest CT follow-up. 4. No acute traumatic findings in the abdomen or pelvis. 5. Multiple compression fractures in the lower lumbar spine and upper thoracic spine have a chronic appearance. L1 compression fracture is new since 2016 but also has a chronic appearance. 6. Bilateral peripelvic renal cyst similar to 2016
--- NOTE | 2024-11-09 09:59 | CT_ITS ---
WS: [id number] CT HEAD TECHNIQUE: Noncontrast CT of the head obtained from the skullbase to the vertex. CLINICAL INFORMATION: AMS COMPARISON: 2019 DLP: 2436.[address] scans at [facility] use at least one of these dose optimization techniques: automated exposure control; mA and/or kV adjustment per patient size (includes targeted exams where dose is matched to clinical indication); or iterative reconstruction. FINDINGS: No evidence of intracranial hemorrhage or mass effect. Ventricular system and basal cisterns are patent. Mild small vessel changes with moderate parenchymal volume loss. Tiny chronic lacunar infarct RIGHT basal ganglia. No extra-axial fluid collections. No evidence of mass or mass effect. Vascular calcification. Trace fluid in the sphenoid sinus. Mucosal thickening in the mastoid air cells. CT/CT head wo con* [id number] IMPRESSION: 1. No evidence of intracranial hemorrhage or mass effect. 2. No acute intracranial findings.
[2024-11-09 10:24] LABS: Ammonia 40 umol/L (16-60)
--- NOTE | 2024-11-09 10:56 | PC.PHAR ---
Patient's son states he isn't sure of medications , but recognizes some off the paper . Patient's son states some he doesn't take as prescribed. Midodrine, son states he checks patient's blood pressure and gives it to patient if its high.Patient's son also states that day before yesterday and last night he gave Patient [place] 600g that is prescribed to his mother ,but patient was having a hard time sleeping .
--- NOTE | 2024-11-09 10:58 | W.ED.WEAKNES ---
HPI - Weakness General: Chief complaint: Weakness Stated complaint: fall 2xdays ago now rib area pain Time Seen by Provider: 11/09/24 09:25 History of Present Illness: 74-year-old male presents to the emergency room complaining of being sedate with weakness. 2 days ago he fell and hit the edge of a couch as he fell landed on his left ribs. He has been very sedate they have been giving him medications to sleep at night reviewing his chart I believe it been giving him trazodone last night he only took half a tablet. The 2 nights prior he took 2 tablets. He also has a history of Parkinson's and is on Sinemet. No report of vomiting or diarrhea no dysuria urgency or frequency denies abdominal pain although on exam he was a little tender. No hemoptysis. [facility] ED PFSH: Medical History Hx of gastroesophageal reflux (GERD) History of back pain Hx of hyperlipidemia Elevated PSA Lower urinary tract symptoms (LUTS) Mitral valve regurgitation Palpitation Hx of primary hypertension Surgical History History of back surgery Family History Other CAD (coronary artery disease) Diabetes Denies family history of Cancer Hypertension Social History Smoking and tobacco/nicotine status: unknown if used tobacco/nicotine Physical Exam Const: GENERAL APPEARANCE: comfortable ORIENTATION/CONSCIOUSNESS: Yes awake HENMT: COMMON NORMALS: normocephalic and atraumatic HEAD & SCALP: normocephalic and atraumatic Chest: OTHER: Left chest wall tenderness no deformity no lacerations no subcutaneous air Resp: COMMON NORMALS: normal respiratory effort, No retractions, No use of accessory muscles and clear to auscultation bilaterally AUSCULTATION: clear to auscultation bilaterally Cardio: COMMON NORMALS: regular rate, regular rhythm and No murmurs present (Cardio) RATE: regular rate RHYTHM: regular rhythm GI: COMMON NORMALS: Soft to palpation and No hepatosplenomegaly present AUSCULTATION: Yes normoactive bowel sounds PALPATION: Yes Soft to palpation, No Tenderness to palpation present (GI), No Guarding due to palpation present (GI) and Yes No hepatosplenomegaly present Extremity: COMMON NORMALS: normal to inspection, capillary refill normal, no clubbing, cyanosis or edema, no calf tenderness and no pedal edema Skin: COMMON NORMALS: no rashes or lesions noted GENERAL SKIN EXAM: no rashes or lesions noted Course Vital Signs: Vital signs: Vital Signs Temperature 97.9 F 11/11/24 11:14 Pulse Rate 82 11/11/24 13:47 Respiratory Rate 17 11/11/24 11:14 Blood Pressure 175/98 11/11/24 13:47 Pulse Oximetry 95 11/11/24 11:14 Oxygen Delivery Me thod Nasal Cannula 11/11/24 11:14 Oxygen Flow Rate 1 11/11/24 11:14 MDM - Weakness Medical Decision Making CT shows bilateral lower lobe pneumonias. [place] significant urinary retention. Remainder of abdominal exam is unremarkable. Will admit patient for pneumonia. Discussed with hospitalist orders written Lab Data 11/11/24 05:10 11/11/24 05:10 Radiology Impressions Chest X-Ray 11/09/24 09:25 IMPRESSION: 1. Atelectasis and probable infiltrate in the RIGHT lower lobe and RIGHT basal pleural effusion. Chest/Abdomen/Pelvis CT 11/09/24 09:58 IMPRESSION: 1. Consolidation with patchy filtrates in the lung bases compatible with pneumonia. Air bronchograms in both lower lobes. 2. Upper lungs are better aerated. 3. Subcentimeter pulmonary nodule in RIGHT upper lobe measuring 6 mm recommend 6-month chest CT follow-up. 4. No acute traumatic findings in the abdomen or pelvis. 5. Multiple compression fractures in the lower lumbar spine and upper thoracic spine have a chronic appearance. L1 compression fracture is new since 2016 but also has a chronic appearance. 6. Bilateral peripelvic renal cyst similar to [address] 11/09/24 09:59 IMPRESSION: 1. No evidence of intracranial hemorrhage or mass effect. 2. No acute intracranial findings. Gallbladder Ultrasound 11/09/24 17:20 IMPRESSION: 1. Limited upper abdominal ultrasound. 2. Negative gallbladder. 3. No intrahepatic duct dilatation. Modified Barium Swallow 11/10/24 09:29 IMPRESSION: 1. The patient readily aspirated thin liquid barium. There was also penetration into the laryngeal inlet when the patient ingested nectar consistency barium mixture foodstuffs. A separate report of findings and recommendations will follow from the speech therapy service. Laboratory Results WBC 16.04 10^3/uL (3.29-11.43) H 11/09/24 09: RBC 4.68 10^6/uL (3.85-5.65) 11/09/24 09: Hgb 13.90 g/dL (11.27-16.99) 11/09/24 09: Hct 43.3 % (37-53) 11/09/24 09: MCV 92.5 fl (82-101) 11/09/24 09: MCH 29.7 pg (27-33) 11/09/24 09: MCHC 32.1 g/dL (30-55) 11/09/24 09: RDW 14.6 % (12.1-15.1) 11/09/24 09: Plt Count 184 10^3/cmm (157-399) 11/09/24 09: MPV 10.2 fL (7.4-10.4) 11/09/24 09: Neut % (Auto) 88.4 % 11/09/24 09: Lymph % (Auto) 6.2 % 11/09/24 09: Maries % (Auto) 4.6 % 11/09/24 09: Eos % (Auto) 0.1 % 11/09/24 09: Baso % (Auto) 0.1 % 11/09/24 09: Neut # (Auto) 14.19 10^3/uL (1.8-7.7) H 11/09/24: Lymph # (Auto) 1.0 10^3/uL (0.8-4.8) 11/09/24: Maries # (Auto) 0.7 10^3/uL (0.2-0.9) 11/09/24: Eos # (Auto) 0.0 10^3/uL (0.0-0.8) 11/09/24: Baso # (Auto) 0.0 10^3/uL (0.0-0.1) 11/09/24 09: Nucleated RBC % (auto) 0 % 11/09/24: Nucleated RBCs # 0.0 /100WBC 11/09/24 09: Specimen Type Arterial 11/09/24: Sample Site Brachial, right 11/09/24: ABG pH 7.44 (7.35-7.45) 11/09/24: ABG pCO2 38.7 mmHg (35-45) 11/09/24 09: ABG pO2 67.8 mmHg (80.0-100.0) L 11/09/24: ABG PO2/FiO2 Ratio 322 11/09/24: ABG HCO3 26.1 mmol/L (22-26) H 11/09/24 09: ABG O2 Saturation 93.8 11/09/24: ABG Base Excess 1.9 mmol/L (-2.0-2.0) 11/09/24: Evans Test Pos 11/09/24: A-a O2 Gradient 4.5 mmHg (5-10) L 11/09/24: Hematocrit 42.2 % (42-52) 11/09/24: Hgb O2 Saturation 92.0 % (95-100) L 11/09/24: Carboxyhemoglobin 1.5 %THgb (0.4-20.1) 11/09/24: Methemoglobin 0.5 % (0.4-1.5) 11/09/24: Total Hemoglobin 13.8 g/dL (14-18) L 11/09/24: Sodium 141.0 mmol/L (131-143) 11/09/24: Potassium 3.6 mmol/L (3.5-5.0) 11/09/24: Glucose 119.0 mg/dL (70-115) H 11/09/24: Ionized Calcium 1.2 mmol/L (1.1-1.4) 11/09/24: O2 Delivery Device Room air 11/09/24: FiO2 21.0 % 11/09/24: Information Services Manager ID Monro 11/09/24 09: Sodium 139 mmol/L (136-145) 11/09/24: Potassium 3.8 mmol/L (3.5-5.1) 11/09/24: Chloride 103 mmol/L (98-107) 03/27/25 09:27 Carbon Dioxide 24 mmol/L (22-29) 11/09/24 09:27 Anion Gap 15.8 (5-19) 11/09/24 09: BUN 29 mg/dL (8-23) H 11/09/24 09:27 Creatinine 0.8 mg/dL (0.7-1.2) 11/09/24 09:27 GFR Calculation Not Reportable 11/09/24 09: Glucose 110 mg/dL (65-115) 11/09/24 09:27 Calculated Osmolality 294 mOsm/kg (285-295) 11/09/24 09: Lactic Acid 1.7 mmol/L (0.5-2.2) 11/09/24 09: Calcium 8.7 mg/dL (8.5-10.5) 11/09/24 09: Total Bilirubin 1.9 mg/dL (0.15-1.2) H 11/09/24 09:27 AST 17 U/L (0-40) 11/09/24 09: ALT 24 U/L (0-41) 11/09/24 09:27 Alkaline Phosphatase 60 U/L (40-130) 11/09/24 09: Ammonia 40 umol/L (16-60) 11/09/24 09: Creatine Kinase 36 U/L (39-308) L 11/09/24 09:27 Total Protein 7.3 g/dL (6.6-8.7) 11/09/24 09:27 Albumin 3.5 g/dL (3.5-5.2) 11/09/24 09: Globulin 3.8 g/dL (1.3-4.6) 11/09/24 09:27 Lipase 9 U/L (13-60) L 11/09/24 09:27 Influenza A (PCR) Negative (Negative) 11/09/24 10:31 Influenza Type B (PCR) Negative (Negative) 11/09/24 10:31 RSV (PCR) Negative (Negative) 11/09/24 10:31 SARS-CoV-2 (PCR) Negative (Negative) 11/09/24 10:31 All radiology interpretation(s) finalized by discharge Discharge Plan Discharge Patient Disposition: Admitted As Inpatient Admit Provider: Halytskyy,Dereck Clinical Impression: Pneumonia, Parkinson disease, symptomatic, Falls Condition: Stable Coding Level of Care Code ED Supervisor [employer] for Chg Fwd Related Data Home Medications ?Medication ?Instructions ?Recorded ?Confirmed linaclotide 145 mcg capsule 145 mcg PO DAILY 01/02/21 11/09/24 (Linzess) multivitamin 1 tab PO DAILY 12/18/21 11/09/24 carbidopa ER 50 mg-levodopa 200 mg 2 tab PO BID 11/09/24 11/09/24 tablet,extended release hydralazine 10 mg tablet 10 mg PO BID PRN hypertention 11/09/24 11/09/24 lactulose 10 gram/15 mL oral 30 ml PO DAILY 11/09/24 11/09/24 solution midodrine 2.5 mg tablet 2.5 mg PO TID 11/09/24 11/09/24 trazodone 50 mg tablet 50 mg PO BEDTIME 11/09/24 11/09/24 Previous Rx's ?Medication ?Instructions ?Recorded Cuff and Collar #1 ea 06/06/24 Allergies Allergy/AdvReac Type Severity Reaction Status Date / Time No Known Allergies Allergy Verified 06/20/24 15:17
[2024-11-09 11:24] LABS: Influenza A NEGATIVE (Negative); Influenza B NEGATIVE (Negative); Respiratory Syncytial Virus Ce NEGATIVE (Negative); SARS-CoV-2 PCR NEGATIVE (Negative)
[2024-11-09] MEDS: levofloxacin-dextrose 5 % 750 MG/150 ML PREMIX 100 MG IV (12:28)
--- NOTE | 2024-11-09 14:05 | PM.HP ---
Providers/Chief Complaint Admitting Physician: Dereck Rodriguez Primary Care Provider: Wilman Anand MD Chief Complaint: fall 2xdays ago now rib area pain History of Present Illness 74-year-old male with a past medical history significant for mitral valve regurgitation, gastroesophageal reflux disease, dementia, Parkinson's disease, multiple old left rib fractures, and chronic lower thoracic and lumbar spine compression fractures (including L1 compression fracture since 2016) presented to the hospital with a chief complaint of left-sided chest pain following a fall two days prior. The patient's son reported that the fall occurred in the living room when the patient experienced dizziness while rising from the sofa. The patient has a history of frequent falls Following the fall, the patient developed left-sided chest pain, which has been interfering with his sleep. The son denied any fever, nausea, or vomiting associated with the fall or chest pain. However, he noted that the patient has been increasingly sleepy and has had difficulty with communication over the past couple of days. The patient's speech is typically better after sleeping but has remained impaired during this episode. The patient's son also reported a history of constipation, requiring the occasional use of laxatives for management. The patient's home medications include gabapentin 600 mg twice daily (last night reduced to 300 mg), midodrine 2.5 mg twice daily(which he did not take past few days), and linzess. Tranzodone was list however per son he was no longer taking this. On initial assessment, the patient appeared somnolent and was difficult to arouse. Vital signs were notable for a blood pressure of 127/86 mmHg and an oxygen saturation of 96% on 2L. The Initial evaluation in the ER revealed: Laboratory Findings: Urinalysis ordered.Wbc of 16, hemoglobin of 13.9, hematocrit of 43.3 and a platelet count of 184. Sodium of 139, potassium of 3.8, chloride of 103, bicarb of 24, BUN of 29 and a creatinine of 0.8. Imaging Studies: CT Head - NO acute intracranial abnormality CT Chest: Patchy infiltrates with consolidation in both lower lobes with air bronchograms compatible with pneumonia. Noncalcified 6 mm nodule in the right upper lobe. CT Abdomen and Pelvis: Diffuse fatty infiltration of the liver, bilateral peripelvic renal cysts, enlarged prostate measuring 4.6 cm. Review of Systems General: Reports: 10 or more systems reviewed and unremarkable except in HPI and below Medications/Allergies Home Medications ?Medication ?Instructions ?Recorded ?Confirmed ?Last Taken ?Type linaclotide 145 mcg capsule 145 mcg PO DAILY 01/02/21 11/09/24 Unknown History (Linzess) multivitamin 1 tab PO DAILY 12/18/21 11/09/24 Unknown History Cuff and Collar #1 ea 06/06/24 11/09/24 Unknown Rx carbidopa ER 50 mg-levodopa 200 mg 2 tab PO BID 11/09/24 11/09/24 Unknown History tablet,extended release hydralazine 10 mg tablet 10 mg PO BID PRN hypertention 11/09/24 11/09/24 Unknown History lactulose 10 gram/15 mL oral 30 ml PO DAILY 11/09/24 11/09/24 Unknown History solution midodrine 2.5 mg tablet 2.5 mg PO TID 11/09/24 11/09/24 Unknown History trazodone 50 mg tablet 50 mg PO BEDTIME 11/09/24 11/09/24 Unknown History Allergies Allergy/AdvReac Type Severity Reaction Status Date / Time No Known Allergies Allergy Verified 06/20/24 15:17 PFSH Acute PFSH: Medical History Hx of gastroesophageal reflux (GERD) History of back pain Hx of hyperlipidemia Elevated PSA Lower urinary tract symptoms (LUTS) Mitral valve regurgitation Palpitation Hx of primary hypertension Surgical History History of back surgery Family History Other CAD (coronary artery disease) Diabetes Denies family history of Cancer Hypertension Social History Smoking and tobacco/nicotine status: unknown if used tobacco/nicotine Vitals/I&O/Wt Last Vital Signs Temp 97.2 F L 11/09/24 09:18 Pulse 85 11/09/24 13:45 Resp 16 11/09/24 09:30 BP 107/71 11/09/24 13:45 Pulse Ox 98 11/09/24 13:45 O2 Del Method Room Air 11/09/24 13:00 11/08/24 11/09/24 11/09/24 22:59 06:59 14:59 Intake Total 150 / 150 Balance 150 / 150 Weight last 48 hrs Weight 58.967 kg Physical Exam Narrative: General: very drowsy however responsive to stimuli, very thin ch. ill appearing HEENT: Dry mucus membranes CVS; RRR Chest; Decreased at baseas on 2l via NC Abd: Soft NT, ND Ext; No edema Data 11/09/24 09:27 11/09/24 09:27 Micro: Microbiology 11/09/24 11:46 Blood Culture - Preliminary Blood SPECIMEN COLLECTED 11/09/24 11:51 Blood Culture - Preliminary Blood SPECIMEN COLLECTED A&P Assessment and plan (1) Parkinson disease, symptomatic: (2) Mitral valve regurgitation: Qualifiers: Cardiac valve disease etiology: nonrheumatic Qualified Code(s): I34.0 - Nonrheumatic mitral (valve) insufficiency (3) Pneumonia: (4) Falls: (5) Urinary retention: Plan Pneumonia - Bilateral lower lobe pneumonia confirmed on chest x-ray and CT scan. Patient presenting with confusion, difficulty sleeping, and left-sided chest pain. Differential Diagnosis: 1. Community-acquired pneumonia 2. Aspiration pneumonia (given history of occasional coughing with eating/drinking) Plan: 1. Continue zosyn which was started in the ER for now 2. IV fluids 3. Check urine step/legionella 4. Sputum culture if able to obtain 5. Follow up on blood culture x2 Altered Mental Status - Likely multifactorial: pneumonia, possible dehydration, underlying parkinson dementia, vs gabapentin induced - Head CT - negative - ABG noted Plan: 1. Treat underlying pneumonia. 2. Remain NPO until more alert 3. Nursing bedside swallow 4. May consider MRI/EEG if no improvement Fall Risk - Recent fall two days ago; history of multiple old fractures. Chronic compression fractures in lower thoracic and lumbar spine. - Has not been compliant with sinemet - Possible combination with orthostasis Plan: 1. Physical therapy evaluation for gait and balance. 2. Occupational therapy for home safety assessment. 3. Check orthostatin Urinary Concerns - Son reports difficulty urinating. Enlarged prostate noted on CT. Plan: 1. Bladder scan to assess for retention. 2. Consider intermittent catheterization if significant retention. 3. Will hold on flomax given possible orthostatic Parkinson's Disease Plan: 1. Neurology consultation outpatient Chronic Medical Issues 1. Mitral Valve Regurgitation - Continue current management. - Cardiology follow-up as outpatient. 2. GERD - Protonix 40 mg IV DVT prophylaxis - Heparin 5000 units q12 PDMP PDMP Reviewed: Not Reviewed Attestations Medical Necessity Statement*: Will require over 2 midnight stay for eval and treatment Coding Level of Care Code Acute Code for Chg Fwd Diagnoses Parkinson disease, symptomatic G20.A1 Nonrheumatic mitral valve regurgitation I34.0 Cardiac valve disease etiology: nonrheumatic Pneumonia J18.9 Falls R29.6 Urinary retention R33.9
[2024-11-09] MEDS: piperacillin-tazobactam 3.375 GM in sodium chloride 0.9% (plus) 50 ML IV ×2 (14:28→22:18)
--- NOTE | 2024-11-09 17:20 | US_ITS ---
WS: [id number] RIGHT UPPER QUADRANT ULTRASOUND HISTORY: Right upper quadrant abdominal pain COMPARISON: CT 11/09/2024 Liver: 16.2 cm in length. Normal size liver and echogenicity. No bile duct dilatation or mass. Portal Vein: Normal hepatopetal flow with monophasic waveform. Gallbladder: Normally distended gallbladder with no stones or wall thickening. CBD: 0.6 cm Pancreas: Not visualized. Right kidney: 10.3 cm in length. Normal size kidney. Prominent central renal pelvis appears to be a parapelvic cyst as noted on CT. Aorta and IVC: Not visualized. No ascites. US/US gall bladder [id number] IMPRESSION: 1. Limited upper abdominal ultrasound. 2. Negative gallbladder. 3. No intrahepatic duct dilatation.
--- NOTE | 2024-11-09 17:31 | PC.NURSE ---
Patient has an inguinal hernia noted to left groin area. Patient does not speak Russian. Son will answer/ask questions for patient. Son cannot read Russian. No informational folder given due to language barrier.
[2024-11-09] MEDS: heparin 5,000 unit/mL INJ 1 mL 5000 UNIT SUBCUT (17:45)
[2024-11-09] MEDS: lactated ringers 1,000 ML 100 ML IV (17:46)
[2024-11-09 17:56] LABS: Bacteria Urine None Seen /hpf; Hyaline Casts Urine 0-4 /lpf; Squamous Epithelial Cell Urine 0-5 /hpf (0-5); WBC Urine 0-5 /hpf (0-5)
[2024-11-09 18:11] LABS: Add Urine Microscopic? YES; Bilirubin Urine Negative (Negative); Blood Urine Trace (Negative); Glucose Urine UA Negative (Normal); Ketones Urine Negative (Negative); Leukocyte Esterase Urine Negative (Negative); Nitrate Urine Negative (Negative); Protein Urine 1+ (Negative); Urine Color Dark Yellow (Yellow)
[2024-11-09 18:26] LABS: Specific Gravity, Urine >= 1.099 (1.005-1.030); Urine Appearance Clear (CLEAR)
[2024-11-09 18:27] LABS: Add Urine Culture? No; UA Slide Review UA Slide Review Perf
--- NOTE | 2024-11-09 22:04 | PC.NURSE ---
Son at bedside immobilized left arm d/t patient having severe tremors and AMS to prevent patient from harming himself. Son used T-shift and tied left arm to bedrail. Son states that he does this at home as well to keep patient from accidentally harming himself. Patient is still able to move left arm, but is not able to move it up high enough to harm himself. Left hand assessed during hourly rounds to check cap refill, pulse, color and temperature distally. Educated son to ensure that is it not too tight on arm. Son verbalized understanding.
[2024-11-10] VITALS (7 sets, daily range): BP systolic 95–133; BP diastolic 61–87; PULSE 82–105; RESP 16–19; TEMP 36.4–37; O2SAT 90–97
[2024-11-10 01:06] LABS: MRSA PCR OZH (swab) NOT DETECTED (Negative)
[2024-11-10] MEDS: lactated ringers 1,000 ML 100 ML IV ×2 (03:00→19:49)
[2024-11-10] MEDS: piperacillin-tazobactam 3.375 GM in sodium chloride 0.9% (plus) 50 ML IV ×3 (05:03→21:33)
[2024-11-10 05:30] LABS: Basophils % 0.1 %; Hematocrit 37.8 % (37-53); Lymphocytes # 0.9 10^3/uL (0.8-4.8); Lymphocytes % 8.1 %; Mean Corpuscular HGB Conc 32.5 g/dL (30-55); Mean Corpuscular Hemoglobin 30.7 pg (27-33); Mean Corpuscular Volume 94.3 fl (82-101); Mean Platelet Volume 9.9 fL (7.4-10.4); Monocytes # 0.7 10^3/uL (0.2-0.9); Monocytes % 6.1 %; Neutrophils # 9.55 10^3/uL (1.8-7.7); Neutrophils % 85.4 %; Nucleated Red Blood Cells % 0 %; Platelet Count 171 10^3/cmm (157-399); Red Blood Count 4.01 10^6/uL (3.85-5.65); Red Cell Distribution Width 14.6 % (12.1-15.1); White Blood Count 11.18 10^3/uL (3.29-11.43)
[2024-11-10 05:56] LABS: Anion Gap 16.6 (5-19); Blood Urea Nitrogen 21 mg/dL (8-23); Calcium 8.1 mg/dL (8.5-10.5); Carbon Dioxide 21 mmol/L (22-29); Chloride 106 mmol/L (98-107); Glucose 106 mg/dL (65-115); Osmolality Calculated 293 mOsm/kg (285-295); Potassium 3.6 mmol/L (3.5-5.1); Sodium 140 mmol/L (136-145)
[2024-11-10 06:02] LABS: Procalcitonin 0.22 ng/mL (0-0.5)
--- OUTSIDE RECORDS SUMMARY | 2024-11-10 06:34 | XMS_ITS | Clinical Summary ---
Author Organization [facility] Administrative Offices Address [address] [place] [address] Care Team Providers Care Permanent Waver Name Role Phone Unavailable Primary Care Provider Unavailabl e Allergies No known active allergies Medications Linzess 290 mcg capsule Take 290 mcg by mouth daily. 11/24/2021 Active propranoloL (INDERAL LA) 60 mg Long Acting 24 hour capsule Take 1 Capsule (60 mg) by mouth daily. 30 Capsule 3 12/10/2021 Active Active Problems No known active problems Social History Tobacco Use Types Packs/Day Years Used Date Smoking Tobacco: Never Smokeless Tobacco: Never Alcohol Use Standard Drinks/Week Comments Never 0 (1 standard drink = 0.6 oz pur e alcohol) Sex and Gender Information Value Date Recorded Sex Assigned at Not on file Legal Sex Male 2:24 PM CDT Gender Identity Not on file Sexual Orientation Not on file Last Filed Vital Signs Vital Sign Reading Time Taken Comments Blood Pressure 108/62 12/10/2021 9:40 AM CDT Pulse 78 12/10/2021 9:40 AM CDT Temperature - - Respiratory Rate 17 12/10/2021 9:40 AM CDT Oxygen Saturation 96% 12/10/2021 9:40 AM CDT Inhaled Oxygen Concentration - - Weight 113.4 kg (250 lb) 12/10/2021 9:40 AM CDT Height 172.7 cm (5' 8 ) 12/10/2021 9:40 AM CDT Body Mass Index 38.01 12/10/2021 9:40 AM CDT Plan of Treatment Health Maintenance Due Date Last Done Comments DTAP/TDAP/TD VACCINES (1 - Tdap) 1971 COLORECTAL SCREENING 1997 Colorectal Cancer Screening 1997 FIT-DNA Q 3 years 1997 FIT/FOBT Q 1 year 1997 Flex Sig/CT Colonography Q 5 years 1997 PNEUMOCOCCAL VACCINE 50+ YEARS (1 of 1 - PCV) 03/23/20 02 ZOSTER VACCINE (1 of 2) 2002 INFLUENZA VACCINE (#1) 2024 12/10/2021 RSV VACCINE (60+ or ) (1 - 1-dose 75+ series) 2027 Insurance [place]ID [place] [id number]
--- NOTE | 2024-11-10 06:41 | PC.NURSE ---
Patient assisted to bedside commode with 2 assist. Transfer to bedside commode was difficult and patient was max assist. Patient did NOT have BM. Son asking for patient to have an enema. I asked son how many days it has been since last BM for patient and he stated 3 days. Dr. Sultana notified of son's request for enema.
--- NOTE | 2024-11-10 09:29 | FL_ITS ---
WS: [id number] Exam: FL barium swallow modifd [id number] Date/Time of Exam: 11/10/2024 11:47 AM Reason For Exam: Pharyngeal dysphagia Fluoroscopy time: 4min [id number] minutes # of spot films: 0 Modified barium swallow test was performed in conjunction with the speech therapy service. The patient readily aspirated thin liquid barium. Penetration into the laryngeal inlet was also noted when the patient ingested nectar consistency barium mixture foodstuffs. The patient tolerated honey consistency barium mixture foodstuffs without penetration or aspiration. The patient swallowed a barium tablet without difficulty. FL/FL barium swallow modifd [id number] IMPRESSION: 1. The patient readily aspirated thin liquid barium. There was also penetration into the laryngeal inlet when the patient ingested nectar consistency barium m ixture foodstuffs. A separate report of findings and recommendations will follow from the speech t herapy service.
[2024-11-10] MEDS: carbidopa-levodopa ER 50-200mg Tablet 2 EACH PO ×2 (09:30→17:21)
[2024-11-10] MEDS: heparin 5,000 unit/mL INJ 1 mL 5000 UNIT SUBCUT ×2 (09:30→19:48)
--- NOTE | 2024-11-10 10:15 | PC.SOCIAL ---
IMM Update pg 2 of IMM updated and reviewed w/ patient. Copy provided and copy dated, initialed and placed in chart.
--- NOTE | 2024-11-10 12:06 | P.PN_ITS ---
Subjective 2 Subjective: 74-year-old male with a past medical his tory significant for mitral valve regurgitation, gastroesophageal reflux disease, dementia, Parkinson's disease, multiple old left rib fractures, and chronic lower thoracic and lumbar spine compression fractures (including L1 compression fracture since 2016) presented to the hospital with a chief complaint of left-sided chest pain following a fall two days prior. The patient's son reported that the fall occurred in the living room when the patient experienced dizziness while rising from the sofa. The patient has a history of frequent falls Following the fall, the patient developed left-sided chest pain, which has been interfering with his sleep. The son denied any fever, nausea, or vomiting associated with the fall or chest pain. However, he noted that the patient has been increasingly sleepy and has had difficulty with communication over the past couple of days. The patient's speech is typically better after sleeping but has remained impaired during this episode. The patient's son also reported a history of constipation, requiring the occasional use of laxatives for management. The patient's home medications include gabapentin 600 mg twice daily (last night reduced to 300 mg), midodrine 2.5 mg twice daily(which he did not take past few days), and linzess. Tranzodone was list however per son he was no longer taking this. On initial assessment, the patient appeared somnolent and was difficult to arouse. Vital signs were notable for a blood pressure of 127/86 mmHg and an oxygen saturation of 96% on 2L. The Initial evaluation in the ER revealed: Laboratory Findings: Urinalysis ordered.Wbc of 16, hemoglobin of 13.9, hematocrit of 43.3 and a platelet count of 184. Sodium of 139, potassium of 3.8, chloride of 103, bicarb of 24, BUN of 29 and a creatinine of 0.8. Imaging Studies: CT Head - NO acute intracranial abnormality CT Chest: Patchy infiltrates with consolidation in both lower lobes with air bronchograms compatible with pneumonia. Noncalcified 6 mm nodule in the right upper lobe. CT Abdomen and Pelvis: Diffuse fatty infiltration of the liver, bilateral peripelvic renal cysts, enlarged prostate measuring 4.6 cm. 11/10 Patient was more alert this morning however still significant concern for aspiration. He was requesting water. Son was at bedside who provided translation. He was concerned about constipation. No additional complaints overnight. Medications: Reviewed: Yes Vitals/I&O/Wt Last Vital Signs Temp 97.6 F 11/10/24 08:00 Pulse 91 11/10/24 04:16 Resp 17 11/10/24 08:00 BP 124/87 11/10/24 04:00 Pulse Ox 96 11/10/24 04:00 O2 Del Method Nasal Cannula 11/10/24 04:00 O2 Flow Rate 2 11/10/24 04:00 11/09/24 11/10/24 11/10/24 22:59 06:59 14:59 Intake Total 0 / 200 973.333 / 1173.333 50 / 50 Output Total 0 / 0 250 / 250 Balance 0 / 200 723.333 / 923.333 50 / 50 Weight last 48 hrs Weight 57.969 kg Weight 58.967 kg Weight 58.967 kg Physical Exam 2 Narrative: General: Chronically ill-appearing, more alert today however. HEENT: Dry mucus membranes CVS; RRR Chest; Decreased at baseas on 2l via NC Abd: Soft NT, ND Ext; No edema Urinary Catheter Management: Ramos: Cath Placed During This Visit: yes Reason for Continuing Indwelling Catheter: Acute Urinary Retention or Obstruction Urinary Catheter Date of Insertion: 11/09/24 Urinary Catheter Time of Insertion: 17:00 Data 11/10/24 05:17 11/10/24 05:17 Micro: Microbiology 11/09/24 11:46 Blood Culture - Preliminary Blood NEGATIVE TO DATE 11/09/24 11:51 Blood Culture - Preliminary Blood NEGATIVE TO DATE 11/09/24 22:15 Legionella Urinary Antigen - Final Urine Catheterized A&P Assessment and plan (1) Parkinson disease, symptomatic: (2) Mitral valve regurgitation: Qualifiers: Cardiac valve disease etiology: nonrheumatic Qualified Code(s): I34.0 - Nonrheumatic mitral (valve) insufficiency (3) Pneumonia: (4) Falls: (5) Urinary retention: Plan Pneumonia - Bilateral lower lobe pneumonia confirmed on chest x-ray and CT scan. Patient presenting with confusion, difficulty sleeping, and left-sided chest pain. - Patient is afebrile. Differential Diagnosis: 1. Community-acquired pneumonia 2. Aspiration pneumonia (given history of occasional coughing with eating/drinking) Plan: 1. Continue zosyn for now 2. IV fluids as ordered 3. Sputum culture if able to obtain 4. Follow up on blood culture x2 - NGTD Altered Mental Status-improving - Likely multifactorial: pneumonia, possible dehydration, underlying parkinson dementia, vs gabapentin induced - Head CT - negative - ABG noted Plan: 1. Treat underlying pneumonia. 2. Avoid sedative 3. Will remain off gabapentin for now Dysphagia - Mental status Improving however given history of Parkinson's patient still at risk. Speech therapy evaluation was done. Requested barium swallow. Plan 1. Barium swallow later today 2. Remain NPO for now Fall Risk - Recent fall two days ago; history of multiple old fractures. Chronic compression fractures in lower thoracic and lumbar spine. - Has not been compliant with sinemet - Possible combination with orthostasis Plan: 1. Physical therapy evaluation for gait and balance. 2. Occupational therapy for home safety assessment. 3. Will check orthostatic vitals today. Urinary Retention - Son reports difficulty urinating. Enlarged prostate noted on CT. - Ramos catheter placed on Plan: 1. Ramos in palce 2. Will hold on flomax given possible orthostatic Parkinson's Disease Plan: 1. Neurology consultation outpatient Chronic Medical Issues 1. Mitral Valve Regurgitation - Continue current management. - Cardiology follow-up as outpatient. 2. GERD - Protonix 40 mg IV DVT prophylaxis - Heparin 5000 units q12 PDMP PDMP Reviewed: Not Reviewed Attestations 2 Medical Necessity Statement*: Will require over 2 midnight stay for eval and treatment Coding Level of Care Code Acute Code for Chg Fwd Diagnoses Parkinson disease, symptomatic G20.A1 Nonrheumatic mitral valve regurgitation I34.0 Cardiac valve disease etiology: nonrheumatic Pneumonia J18.9 Falls R29.6 Urinary retention R33.9
[2024-11-11] VITALS (8 sets, daily range): BP systolic 72–175; BP diastolic 51–98; PULSE 71–96; RESP 16–21; TEMP 36.3–37; O2SAT 92–95
[2024-11-11] MEDS: lactated ringers 1,000 ML 100 ML IV ×2 (05:20→17:32)
[2024-11-11] MEDS: piperacillin-tazobactam 3.375 GM in sodium chloride 0.9% (plus) 50 ML IV ×3 (05:20→21:37)
[2024-11-11 05:25] LABS: Basophils % 0.2 %; Eosinophils % 0.3 %; Hematocrit 36.8 % (37-53); Lymphocytes # 1.3 10^3/uL (0.8-4.8); Lymphocytes % 13.2 %; Mean Corpuscular HGB Conc 32.1 g/dL (30-55); Mean Corpuscular Hemoglobin 29.7 pg (27-33); Mean Corpuscular Volume 92.7 fl (82-101); Mean Platelet Volume 10.1 fL (7.4-10.4); Monocytes # 0.6 10^3/uL (0.2-0.9); Neutrophils # 7.62 10^3/uL (1.8-7.7); Neutrophils % 80.1 %; Nucleated Red Blood Cells % 0 %; Platelet Count 190 10^3/cmm (157-399); Red Blood Count 3.97 10^6/uL (3.85-5.65); Red Cell Distribution Width 14.4 % (12.1-15.1); White Blood Count 9.52 10^3/uL (3.29-11.43)
[2024-11-11 05:42] LABS: Anion Gap 12.4 (5-19); Blood Urea Nitrogen 19 mg/dL (8-23); Carbon Dioxide 25 mmol/L (22-29); Chloride 106 mmol/L (98-107); Glucose 99 mg/dL (65-115); Osmolality Calculated 292 mOsm/kg (285-295); Potassium 3.4 mmol/L (3.5-5.1); Sodium 140 mmol/L (136-145)
[2024-11-11] MEDS: heparin 5,000 unit/mL INJ 1 mL 5000 UNIT SUBCUT ×2 (08:10→21:38)
[2024-11-11] MEDS: carbidopa-levodopa ER 50-200mg Tablet 2 EACH PO ×2 (08:10→17:36)
--- NOTE | 2024-11-11 13:42 | P.PN_ITS ---
Subjective 2 Subjective: 74-year-old male with a past medical his tory significant for mitral valve regurgitation, gastroesophageal reflux disease, dementia, Parkinson's disease, multiple old left rib fractures, and chronic lower thoracic and lumbar spine compression fractures (including L1 compression fracture since 2016) presented to the hospital with a chief complaint of left-sided chest pain following a fall two days prior. The patient's son reported that the fall occurred in the living room when the patient experienced dizziness while rising from the sofa. The patient has a history of frequent falls Following the fall, the patient developed left-sided chest pain, which has been interfering with his sleep. The son denied any fever, nausea, or vomiting associated with the fall or chest pain. However, he noted that the patient has been increasingly sleepy and has had difficulty with communication over the past couple of days. The patient's speech is typically better after sleeping but has remained impaired during this episode. The patient's son also reported a history of constipation, requiring the occasional use of laxatives for management. The patient's home medications include gabapentin 600 mg twice daily (last night reduced to 300 mg), midodrine 2.5 mg twice daily(which he did not take past few days), and linzess. Tranzodone was list however per son he was no longer taking this. On initial assessment, the patient appeared somnolent and was difficult to arouse. Vital signs were notable for a blood pressure of 127/86 mmHg and an oxygen saturation of 96% on 2L. The Initial evaluation in the ER revealed: Laboratory Findings: Urinalysis ordered.Wbc of 16, hemoglobin of 13.9, hematocrit of 43.3 and a platelet count of 184. Sodium of 139, potassium of 3.8, chloride of 103, bicarb of 24, BUN of 29 and a creatinine of 0.8. Imaging Studies: CT Head - NO acute intracranial abnormality CT Chest: Patchy infiltrates with consolidation in both lower lobes with air bronchograms compatible with pneumonia. Noncalcified 6 mm nodule in the right upper lobe. CT Abdomen and Pelvis: Diffuse fatty infiltration of the liver, bilateral peripelvic renal cysts, enlarged prostate measuring 4.6 cm. 11/10 Patient was more alert this morning however still significant concern for aspiration. He was requesting water. Son was at bedside who provided translation. He was concerned about constipation. No additional complaints overnight. 11/11 Overnight patient did not have any new clinical events. Patient's son was at bedside he stated that he does become more interactive during the daytime. He was started on a dysphagia diet which she has been tolerating. Continued on 1 L O2 via nasal cannula. Has been afebrile. Severe at home patient is noncompliant with his Parkinson's medications. Medications: Reviewed: Yes Vitals/I&O/Wt Last Vital Signs Temp 97.9 F 11/11/24 11:14 Pulse 81 11/11/24 11:14 Resp 17 11/11/24 11:14 BP 136/87 11/11/24 11:14 Pulse Ox 95 11/11/24 11:14 O2 Del Method Nasal Cannula 11/11/24 11:14 O2 Flow Rate 1 11/11/24 11:14 11/10/24 11/11/24 11/11/24 22:59 06:59 14:59 Intake Total 1170 / 1340 1001.667 / 2341.667 170 / 170 Output Total 350 / 350 600 / 950 650 / 650 Balance 820 / 990 401.667 / 1391.667 -480 / -480 Weight last 48 hrs Weight 64.002 kg Weight 57.969 kg Weight 58.967 kg Physical Exam 2 Narrative: General: Chronically ill-appearing, more alert today however. HEENT: Dry mucus membranes CVS; RRR Chest; Decreased at baseas on 2l via NC Abd: Soft NT, ND Ext; No edema Urinary Catheter Management: Ramos: Cath Placed During This Visit: yes Reason for Continuing Indwelling Catheter: Acute Urinary Retention or Obstruction Urinary Catheter Date of Insertion: 11/09/24 Urinary Catheter Time of Insertion: 17:00 Data 11/11/24 05:10 11/11/24 05:10 Micro: Microbiology 11/09/24 11:46 Blood Culture - Preliminary Blood NEGATIVE TO DATE 11/09/24 11:51 Blood Culture - Preliminary Blood NEGATIVE TO DATE A&P Assessment and plan (1) Parkinson disease, symptomatic: (2) Mitral valve regurgitation: Qualifiers: Cardiac valve disease etiology: nonrheumatic Qualified Code(s): I34.0 - Nonrheumatic mitral (valve) insufficiency (3) Pneumonia: (4) Falls: (5) Urinary retention: Plan Pneumonia - Bilateral lower lobe pneumonia confirmed on chest x-ray and CT scan. Patient presenting with confusion, difficulty sleeping, and left-sided chest pain. - Patient is afebrile. No leukocytosis that has resolved. Differential Diagnosis: 1. Community-acquired pneumonia 2. Aspiration pneumonia (given history of occasional coughing with eating/drinking) Plan: 1. Continue on Zosyn for now. Will de-escalate antibiotics in the next 1 to 2 days as patient is able to tolerate more oral intake. 2. Saline lock IV fluids. 3. Sputum culture if able to obtain 4. Follow up on blood culture x2 - NGTD Altered Mental Status-improving - Likely multifactorial: pneumonia, possible dehydration, underlying parkinson dementia, vs gabapentin induced - Head CT - negative - ABG noted Plan: 1. Treat underlying pneumonia. 2. Avoid sedative 3. Will remain off gabapentin for now Dysphagia - Mental status Improving however given history of Parkinson's patient still at risk. Speech therapy evaluation was done. Requested barium swallow which was completed and is noted in chart. Plan 1. Continue aspiration precautions and dysphagia diet. Fall Risk - Recent fall two days ago; history of multiple old fractures. Chronic compression fractures in lower thoracic and lumbar spine. - Has not been compliant with sinemet - Possible combination with orthostasis Plan: 1. Physical therapy and Occupational Therapy on board. 2. Will discuss discharge planning with family and rehab needs. Urinary Retention - Son reports difficulty urinating. Enlarged prostate noted on CT. - Ramos catheter placed on Plan: 1 will check orthostatics and if negative will start patient on Flomax. Parkinson's Disease Plan: 1. Neurology consultation outpatient Chronic Medical Issues 1. Mitral Valve Regurgitation - Continue current management. - Cardiology follow-up as outpatient. 2. GERD - Protonix 40 mg IV DVT prophylaxis - Heparin 5000 units q12 PDMP PDMP Reviewed: Not Reviewed Attestations 2 Medical Necessity Statement*: Will require over 2 midnight stay for eval and treatment Coding Level of Care Code Acute Code for [facility] Fwd Diagnoses Parkinson disease, symptomatic G20.A1 Nonrheumatic mitral valve regurgitation I34.0 Cardiac valve disease etiology: nonrheumatic Pneumonia J18.9 Falls R29.6 Urinary retention R33.9
[2024-11-11] MEDS: lidocaine 1% 5 ML in potassium chloride premix 100 ML 52.5 ML IV (15:06)
[2024-11-11] MEDS: bisacodyl 10 mg Supp PR (19:12)
[2024-11-12] VITALS (8 sets, daily range): BP systolic 136–159; BP diastolic 88–100; PULSE 77–87; RESP 16–21; TEMP 36.6–36.8; O2SAT 92–96
[2024-11-12] MEDS: lactated ringers 1,000 ML 100 ML IV ×3 (03:00→22:47)
[2024-11-12 04:21] LABS: Basophils % 0.3 %; Eosinophils # 0.1 10^3/uL (0.0-0.8); Eosinophils % 0.5 %; Hematocrit 37.7 % (37-53); Lymphocytes % 10.5 %; Mean Corpuscular HGB Conc 32.9 g/dL (30-55); Mean Corpuscular Hemoglobin 30.5 pg (27-33); Mean Corpuscular Volume 92.9 fl (82-101); Mean Platelet Volume 10.1 fL (7.4-10.4); Monocytes # 0.6 10^3/uL (0.2-0.9); Monocytes % 5.8 %; Neutrophils # 7.85 10^3/uL (1.8-7.7); Neutrophils % 82.4 %; Nucleated Red Blood Cells % 0 %; Platelet Count 185 10^3/cmm (157-399); Red Blood Count 4.06 10^6/uL (3.85-5.65); White Blood Count 9.53 10^3/uL (3.29-11.43)
[2024-11-12 04:44] LABS: Anion Gap 13.6 (5-19); Blood Urea Nitrogen 14 mg/dL (8-23); Calcium 7.9 mg/dL (8.5-10.5); Carbon Dioxide 25 mmol/L (22-29); Chloride 102 mmol/L (98-107); Glucose 86 mg/dL (65-115); Osmolality Calculated 284 mOsm/kg (285-295); Potassium 3.6 mmol/L (3.5-5.1); Sodium 137 mmol/L (136-145)
[2024-11-12] MEDS: piperacillin-tazobactam 3.375 GM in sodium chloride 0.9% (plus) 50 ML IV ×3 (05:13→21:20)
[2024-11-12] MEDS: carbidopa-levodopa ER 50-200mg Tablet 2 EACH PO ×2 (09:36→17:39)
[2024-11-12] MEDS: heparin 5,000 unit/mL INJ 1 mL 5000 UNIT SUBCUT ×2 (09:41→21:13)
--- NOTE | 2024-11-12 14:46 | P.PN_ITS ---
Subjective 2 Subjective: 74-year-old male with a past medical his tory significant for mitral valve regurgitation, gastroesophageal reflux disease, dementia, Parkinson's disease, multiple old left rib fractures, and chronic lower thoracic and lumbar spine compression fractures (including L1 compression fracture since 2016) presented to the hospital with a chief complaint of left-sided chest pain following a fall two days prior. The patient's son reported that the fall occurred in the living room when the patient experienced dizziness while rising from the sofa. The patient has a history of frequent falls Following the fall, the patient developed left-sided chest pain, which has been interfering with his sleep. The son denied any fever, nausea, or vomiting associated with the fall or chest pain. However, he noted that the patient has been increasingly sleepy and has had difficulty with communication over the past couple of days. The patient's speech is typically better after sleeping but has remained impaired during this episode. The patient's son also reported a history of constipation, requiring the occasional use of laxatives for management. The patient's home medications include gabapentin 600 mg twice daily (last night reduced to 300 mg), midodrine 2.5 mg twice daily(which he did not take past few days), and linzess. Tranzodone was list however per son he was no longer taking this. On initial assessment, the patient appeared somnolent and was difficult to arouse. Vital signs were notable for a blood pressure of 127/86 mmHg and an oxygen saturation of 96% on 2L. The Initial evaluation in the ER revealed: Laboratory Findings: Urinalysis ordered.Wbc of 16, hemoglobin of 13.9, hematocrit of 43.3 and a platelet count of 184. Sodium of 139, potassium of 3.8, chloride of 103, bicarb of 24, BUN of 29 and a creatinine of 0.8. Imaging Studies: CT Head - NO acute intracranial abnormality CT Chest: Patchy infiltrates with consolidation in both lower lobes with air bronchograms compatible with pneumonia. Noncalcified 6 mm nodule in the right upper lobe. CT Abdomen and Pelvis: Diffuse fatty infiltration of the liver, bilateral peripelvic renal cysts, enlarged prostate measuring 4.6 cm. 11/10 Patient was more alert this morning however still significant concern for aspiration. He was requesting water. Son was at bedside who provided translation. He was concerned about constipation. No additional complaints overnight. 11/11 Overnight patient did not have any new clinical events. Patient's son was at bedside he stated that he does become more interactive during the daytime. He was started on a dysphagia diet which she has been tolerating. Continued on 1 L O2 via nasal cannula. Has been afebrile. Severe at home patient is noncompliant with his Parkinson's medications. 11/12 Patient has only shown minimal improvement in overall mental status. He continues to be quite drowsy however per the son who was at bedside he stated that he does become more alert throughout the day. Remained on 2 L of O2 by nasal cannula has not had any respiratory distress. Was started on thickened liquid diet which was discussed with patient and son. Requested probiotics as well. Discussed with son regarding patient's overall decline is likely due to progression of his Parkinson's disease with dementia. Discussed the possibility of placement however stated that he would care for patient at home 08/03. Has not had any fevers overnight. No new symptoms were noted. Medications: Reviewed: Yes Vitals/I&O/Wt Last Vital Signs Temp 97.9 F 11/12/24 07:54 Pulse 87 11/12/24 07:54 Resp 17 11/12/24 07:54 BP 159/100 11/12/24 07:54 Pulse Ox 95 11/12/24 07:54 O2 Del Method Nasal Cannula 11/12/24 07:54 O2 Flow Rate 1 11/12/24 07:56 11/11/24 11/12/24 11/12/24 22:59 06:59 14:59 Intake Total 1275 / 1545 996.667 / 2541.667 1050 / 1050 Output Total 1350 / 2000 125 / 2125 650 / 650 Balance -75 / -455 871.667 / 416.667 400 / 400 Weight last 48 hrs Weight 61.643 kg Weight 64.002 kg Physical Exam 2 Narrative: General: Chronically ill-appearing, more alert today however. HEENT: Dry mucus membranes CVS; RRR Chest; Decreased at baseas on 2l via NC Abd: Soft NT, ND Ext; No edema Urinary Catheter Management: Ramos: Cath Placed During This Visit: yes Reason for Continuing Indwelling Catheter: Acute Urinary Retention or Obstruction Urinary Catheter Date of Insertion: 11/09/24 Urinary Catheter Time of Insertion: 17:00 Data 11/12/24 03:08 11/12/24 03:08 A&P Assessment and plan (1) Parkinson disease, symptomatic: (2) Mitral valve regurgitation: Qualifiers: Cardiac valve disease etiology: nonrheumatic Qualified Code(s): I34.0 - Nonrheumatic mitral (valve) insufficiency (3) Pneumonia: (4) Falls: (5) Urinary retention: Plan Pneumonia likely aspiration - Bilateral lower lobe pneumonia confirmed on chest x-ray and CT scan. Patient presenting with confusion, difficulty sleeping, and left-sided chest pain. - Patient is afebrile. No leukocytosis that has resolved. -Patient's son today noted that he now remembers that his father was coughing with each meals for some time. Plan: 1. Will transition to PO abx in 24hr if paitent able to tolerate 2. CBC in am 3. Follow up on blood culture x2 - NGTD 4. Will add probiotics Altered Mental Status-improving - Likely multifactorial: pneumonia, possible dehydration, underlying parkinson dementia, vs gabapentin induced. Since arrival patient's mental status has waxed and waned. - Head CT - negative - ABG noted Plan: 1. Treat underlying pneumonia. 2. Avoid sedative 3. Will remain off gabapentin for now Dysphagia - Mental status Improving however given history of Parkinson's patient still at risk. Speech therapy evaluation was done. Requested barium swallow which was completed and is noted in chart. Plan 1. Continue aspiration precautions and dysphagia diet. Fall Risk - Recent fall two days ago; history of multiple old fractures. Chronic compression fractures in lower thoracic and lumbar spine. - Has not been compliant with sinemet - Possible combination with orthostasis -unable to check orthostatics. Plan: 1. Physical therapy and Occupational Therapy on board. 2. Will discuss discharge planning with family and rehab needs. Urinary Retention - Son reports difficulty urinating. Enlarged prostate noted on CT. - Ramos catheter placed on Plan: 1. We were not able to check orthostatic as patient has a difficult time standing. Parkinson's Disease Plan: 1. Neurology consultation outpatient Chronic Medical Issues 1. Mitral Valve Regurgitation - Continue current management. - Cardiology follow-up as outpatient. 2. GERD - Protonix 40 mg IV DVT prophylaxis - Heparin 5000 units q12 Goals of care discussion Discussed with patient's son([email or web address]) and who are at bedside. Discussed the this is likely progression of his Parkinson's disease given that he has been very noncompliant with his treatment regimen and outpatient neurology follow-up for some time. This is likely the underlying issue that has been exacerbated by acute infection. Despite treatment with IV Zosyn for the past few days patient has not shown a significant clinical improvement. He is for the most part still very drowsy however is arousable when stimulated and able to take oral intake throughout the day. I discussed with him that he is not likely to show significant improvement from this rapidly and however may show gradual improvement now that he is back on the Sinemet. Given options for postacute care placement however he stated that he is able to provide 24/7 care at home. At this point discussed weaning his oxygen however may require this at discharge. Also does have a Ramos bag which was placed due to urinary retention. He was previously on midodrine which has not been restarted due to hypertensive episodes. May likely be discharged with the Ramos bag and outpatient urology follow-up. Will also need outpatient neurology follow-up. To remain full code however. PDMP PDMP Reviewed: Not Reviewed Attestations 2 Medical Necessity Statement*: Will require over 2 midnight stay for eval and treatment Coding Level of Care Code Acute Code for g Fwd Diagnoses Parkinson disease, symptomatic G20.A1 Nonrheumatic mitral valve regurgitation I34.0 Cardiac valve disease etiology: nonrheumatic Pneumonia J18.9 Falls R29.6 Urinary retention R33.9
[2024-11-13 00:05] VITALS: BP 135/84; PULSE 64; RESP 18; TEMP 36.6; O2SAT 93
[2024-11-13 04:23] VITALS: BP 156/89; PULSE 78; RESP 20; TEMP 36.6; O2SAT 94
[2024-11-13 05:38] VITALS: PULSE 80
[2024-11-13] MEDS: piperacillin-tazobactam 3.375 GM in sodium chloride 0.9% (plus) 50 ML IV (05:49)
[2024-11-13 08:00] VITALS: BP 117/83; BP 135/96; PULSE 80; PULSE 84; RESP 16; RESP 17; TEMP 36.6; O2SAT 95
[2024-11-13] MEDS: lactated ringers 1,000 ML 100 ML IV (09:13)
[2024-11-13] MEDS: tamsulosin 0.4 mg Capsule PO (09:23)
[2024-11-13] MEDS: heparin 5,000 unit/mL INJ 1 mL 5000 UNIT SUBCUT (09:23)
[2024-11-13] MEDS: carbidopa-levodopa ER 50-200mg Tablet 2 EACH PO (09:23)
--- NOTE | 2024-11-13 11:26 | P.DS_ITS ---
Discharge Providers Date of Admission: 11/09/24 16:30 Date of Discharge: November 13, 2024 Attending Provider at Admission: Dereck Rodriguez Attending Provider at Discharge: Mitch Sultana Primary Care Provider: Wilman Anand MD Diagnoses at Discharge Discharge Diagnosis (1) Parkinson disease, symptomatic: Status: Acute (2) Mitral valve regurgitation: Status: Acute Qualifiers: Cardiac valve disease etiology: nonrheumatic Qualified Code(s): I34.0 - Nonrheumatic mitral (valve) insufficiency (3) Pneumonia: Status: Resolved (4) Falls: Status: Acute (5) Urinary retention: Status: Resolved Reason for Visit Reason for Visit: fall 2xdays ago now rib area pain Hospital Course Hospital Course 74-year-old male with a past medical history significant for mitral valve regurgitation, gastroesophageal reflux disease, dementia, Parkinson's disease, multiple old left rib fractures, and chronic lower thoracic and lumbar spine compression fractures (including L1 compression fracture since 2016) presented to the hospital with a chief complaint of left-sided chest pain following a fall two days prior. The patient's son reported that the fall occurred in the living room when the patient experienced dizziness while rising from the sofa. The patient has a history of frequent falls Following the fall, the patient developed left-sided chest pain, which has been interfering with his sleep. The son denied any fever, nausea, or vomiting associated with the fall or chest pain. However, he noted that the patient has been increasingly sleepy and has had difficulty with communication over the past couple of days. The patient's speech is typically better after sleeping but has remained impaired during this episode. The patient's son also reported a history of constipation, requiring the occasional use of laxatives for management. The patient's home medications include gabapentin 600 mg twice daily (last night reduced to 300 mg), midodrine 2.5 mg twice daily(which he did not take past few days), and linzess. Tranzodone was list however per son he was no longer taking this. On initial assessment, the patient appeared somnolent and was difficult to arouse. Vital signs were notable for a blood pressure of 127/86 mmHg and an oxygen saturation of 96% on 2L. The Initial evaluation in the ER revealed: Laboratory Findings: Urinalysis ordered.Wbc of 16, hemoglobin of 13.9, hematocrit of 43.3 and a platelet count of 184. Sodium of 139, potassium of 3.8, chloride of 103, bicarb of 24, BUN of 29 and a creatinine of 0.8. Imaging Studies: CT Head - NO acute intracranial abnormality CT Chest: Patchy infiltrates with consolidation in both lower lobes with air bronchograms compatible with pneumonia. Noncalcified 6 mm nodule in the right upper lobe. CT Abdomen and Pelvis: Diffuse fatty infiltration of the liver, bilateral peripelvic renal cysts, enlarged prostate measuring 4.6 cm. 11/10 Patient was more alert this morning however still significant concern for aspiration. He was requesting water. Son was at bedside who provided translation. He was concerned about constipation. No additional complaints overnight. 11/11 Overnight patient did not have any new clinical events. Patient's son was at bedside he stated that he does become more interactive during the daytime. He was started on a dysphagia diet which she has been tolerating. Continued on 1 L O2 via nasal cannula. Has been afebrile. Severe at home patient is noncompliant with his Parkinson's medications. 11/12 Patient has only shown minimal improvement in overall mental status. He continues to be quite drowsy however per the son who was at bedside he stated that he does become more alert throughout the day. Remained on 2 L of O2 by nasal cannula has not had any respiratory distress. Was started on thickened liquid diet which was discussed with patient and son. Requested probiotics as well. Discussed with son regarding patient's overall decline is likely due to progression of his Parkinson's disease with dementia. Discussed the possibility of placement however stated that he would care for patient at home 08/03. Has not had any fevers overnight. No new symptoms were noted. 11/13 Discussed with family who were wnting to take patient home. Stated they planned to provide 24hr care. Discussed keeping owens in place and outpatient follow up with urology however they requested this would be taken out. Discussed high risk for urinary retention again. Recommended to follow up with neurology. He was discharged to care of family. Physical Exam Narrative: General: Chronically ill-appearing, more alert today however. HEENT: Dry mucus membranes CVS; RRR Chest; Decreased at baseas on 2l via NC Abd: Soft NT, ND Ext; No edema Urinary Catheter Management: Owens: Cath Placed During This Visit: yes Reason for Continuing Indwelling Catheter: Acute Urinary Retention or Obstruction Urinary Catheter Date of Insertion: 11/09/24 Urinary Catheter Time of Insertion: 17:00 Discharge Data Studies Completed and Pending Completed Studies During Hospitalization Category Date Time Status CT chest abdomen pelvis [CT chest abdpel w/*[id number] Cat Scan 11/09/24 09:58 Completed ] Stat CT head wo con* [id number] Stat Cat Scan 11/09/24 09:59 Completed Modified barium swallow [FL barium swallow modifd [id number] Exams 11/10/24 09:29 Completed ] Routine XR chest 1V portable [id number] Stat Exams 11/09/24 09:25 Completed US gall bladder [id number] Routine Ultrasound 11/09/24 17:20 Completed Pending at discharge Category Date Time Status Blood Culture Stat Lab 11/09/24 11:46 Results Radiology Impressions Chest X-Ray 11/09/24 09:25 IMPRESSION: 1. Atelectasis and probable infiltrate in the RIGHT lower lobe and RIGHT basal pleural effusion. Chest/Abdomen/Pelvis CT 11/09/24 09:58 IMPRESSION: 1. Consolidation with patchy filtrates in the lung bases compatible with pneumonia. Air bronchograms in both lower lobes. 2. Upper lungs are better aerated. 3. Subcentimeter pulmonary nodule in RIGHT upper lobe measuring 6 mm recommend 6-month chest CT follow-up. 4. No acute traumatic findings in the abdomen or pelvis. 5. Multiple compression fractures in the lower lumbar spine and upper thoracic spine have a chronic appearance. L1 compression fracture is new since 2016 but also has a chronic appearance. 6. Bilateral peripelvic renal cyst similar to [address] 11/09/24 09:59 IMPRESSION: 1. No evidence of intracranial hemorrhage or mass effect. 2. No acute intracranial findings. Gallbladder Ultrasound 11/09/24 17:20 IMPRESSION: 1. Limited upper abdominal ultrasound. 2. Negative gallbladder. 3. No intrahepatic duct dilatation. Modified Barium Swallow 11/10/24 09:29 IMPRESSION: 1. The patient readily aspirated thin liquid barium. There was also penetration into the laryngeal inlet when the patient ingested nectar consistency barium mixture foodstuffs. A separate report of findings and recommendations will follow from the speech therapy service. Laboratory Results WBC 9.53 10^3/uL (3.29-11.43) 11/12/24 03:08 RBC 4.06 10^6/uL (3.85-5.65) 11/12/24 03:08 Hgb 12.40 g/dL (11.27-16.99) 11/12/24 03:08 Hct 37.7 % (37-53) 11/12/24 03:08 MCV 92.9 fl (82-101) 11/12/24 03:08 MCH 30.5 pg (27-33) 11/12/24 03:08 MCHC 32.9 g/dL (30-55) 11/12/24 03:08 RDW 14.0 % (12.1-15.1) 11/12/24 03:08 Plt Count 185 10^3/cmm (157-399) 11/12/24 03:08 MPV 10.1 fL (7.4-10.4) 11/12/24 03:08 Neut % (Auto) 82.4 % 11/12/24 03:08 Lymph % (Auto) 10.5 % 11/12/24 03:08 Sharkey % (Auto) 5.8 % 11/12/24 03:08 Eos % (Auto) 0.5 % 11/12/24 03:08 Baso % (Auto) 0.3 % 11/12/24 03:08 Neut # (Auto) 7.85 10^3/uL (1.8-7.7) H 11/12/24 03:08 Lymph # (Auto) 1.0 10^3/uL (0.8-4.8) 11/12/24 03:08 Sharkey # (Auto) 0.6 10^3/uL (0.2-0.9) 11/12/24 03:08 Eos # (Auto) 0.1 10^3/uL (0.0-0.8) 11/12/24 03:08 Baso # (Auto) 0.0 10^3/uL (0.0-0.1) 11/12/24 03:08 Nucleated RBC % (auto) 0 % 11/12/24 03:08 Nucleated RBCs # 0.0 /100WBC 11/12/24 03:08 Specimen Type Arterial 11/09/24 09:27 Sample Site Brachial, right 11/09/24 09:27 ABG pH 7.44 (7.35-7.45) 11/09/24 09:27 ABG pCO2 38.7 mmHg (35-45) 11/09/24 09:27 ABG pO2 67.8 mmHg (80.0-100.0) L 11/09/24 09: ABG PO2/FiO2 Ratio 322 11/09/24 09: ABG HCO3 26.1 mmol/L (22-26) H 11/09/24 09:27 ABG O2 Saturation 93.8 11/09/24 09: ABG Base Excess 1.9 mmol/L (-2.0-2.0) 11/09/24 09: Evans Test Pos 11/09/24 09:27 A-a O2 Gradient 4.5 mmHg (5-10) L 11/09/24 09: Hematocrit 42.2 % (42-52) 11/09/24 09: Hgb O2 Saturation 92.0 % (95-100) L 11/09/24 09: Carboxyhemoglobin 1.5 %THgb (0.4-20.1) 11/09/24 09: Methemoglobin 0.5 % (0.4-1.5) 11/09/24 09: Total Hemoglobin 13.8 g/dL (14-18) L 11/09/24 09:27 Sodium 141.0 mmol/L (131-143) 11/09/24 09:27 Potassium 3.6 mmol/L (3.5-5.0) 11/09/24 09:27 Glucose 119.0 mg/dL (70-115) H 11/09/24 09:27 Ionized Calcium 1.2 mmol/L (1.1-1.4) 11/09/24 09:27 O2 Delivery Device Room air 11/09/24 09:27 FiO2 21.0 % 11/09/24 09:27 Unit Assistant ID Monro 11/09/24 09:27 Sodium 137 mmol/L (136-145) 11/12/24 03:08 Potassium 3.6 mmol/L (3.5-5.1) 11/12/24 03:08 Chloride 102 mmol/L (98-107) 11/12/24 03:08 Carbon Dioxide 25 mmol/L (22-29) 11/12/24 03:08 Anion Gap 13.6 (5-19) 11/12/24 03:08 BUN 14 mg/dL (8-23) 11/12/24 03:08 Creatinine 0.5 mg/dL (0.7-1.2) L 11/12/24 03:08 GFR Calculation Not Reportable 11/12/24 03:08 Glucose 86 mg/dL (65-115) 11/12/24 03:08 Calculated Osmolality 284 mOsm/kg (285-295) L 11/12/24 03:08 Lactic Acid 1.7 mmol/L (0.5-2.2) 11/09/24 09:27 Calcium 7.9 mg/dL (8.5-10.5) L 11/12/24 03:08 Total Bilirubin 1.9 mg/dL (0.15-1.2) H 11/09/24 09:27 AST 17 U/L (0-40) 11/09/24 09:27 ALT 24 U/L (0-41) 11/09/24 09:27 Alkaline Phosphatase 60 U/L (40-130) 11/09/24 09:27 Ammonia 40 umol/L (16-60) 11/09/24 09:27 Creatine Kinase 36 U/L (39-308) L 11/09/24 09:27 Total Protein 7.3 g/dL (6.6-8.7) 11/09/24 09:27 Albumin 3.5 g/dL (3.5-5.2) 11/09/24 09:27 Globulin 3.8 g/dL (1.3-4.6) 11/09/24 09:27 Lipase 9 U/L (13-60) L 11/09/24 09:27 Procalcitonin 0.22 ng/mL (0-0.5) 11/10/24 05:17 Urine Color Dark yellow (Yellow) A 11/09/24 17:20 Urine Appearance Clear (CLEAR) 11/09/24 17:20 Urine pH 5.0 (5-7) 11/09/24 17:20 Ur Specific [place] >= 1.099 (1.005-1.030) H 11/09/24 17:20 Urine Protein 1+ (Negative) A 11/09/24 17:20 Urine Glucose (UA) Negative (Normal) 11/09/24 17:20 Urine Ketones Negative (Negative) 11/09/24 17:20 Urine Blood Trace (Negative) A 11/09/24 17:20 Urine Nitrate Negative (Negative) 11/09/24 17:20 Urine Bilirubin Negative (Negative) 11/09/24 17:20 Urine Urobilinogen 1.0 mg/dL (Negative) 11/09/24 17:20 Ur Leukocyte Esterase Negative (Negative) 11/09/24 17:20 Urine RBC 6-10 /hpf (0-2) 11/09/24 17:20 Urine WBC 0-5 /hpf (0-5) 11/09/24 17:20 Ur Squamous Epith Cells 0-5 /hpf (0-5) 11/09/24 17:20 Amorphous Sediment Not Reportable 11/09/24 17:20 Urine Bacteria None seen /hpf (NONE) 11/09/24 17:20 Hyaline Casts 0-4 /lpf H 11/09/24 17:20 Nasal MRSA (PCR) Not detected (Negative) 11/09/24 22:15 Influenza A (PCR) Negative (Negative) 11/09/24 10:31 Influenza Type B (PCR) Negative (Negative) 11/09/24 10:31 RSV (PCR) Negative (Negative) 11/09/24 10:31 SARS-CoV-2 (PCR) Negative (Negative) 11/09/24 10:31 Vitals Last Vital Signs Temp 97.8 F 11/13/24 08:00 Pulse 80 11/13/24 08:00 Resp 17 11/13/24 08:00 BP 135/96 11/13/24 08:00 Pulse Ox 95 11/13/24 08:00 O2 Del Method Room Air 11/13/24 08:00 O2 Flow Rate 1 11/12/24 15:47 Discharge Plan Discharge Patient Disposition: Home Condition: Stable Prescriptions: New tamsulosin 0.4 mg Capsule 0.4 mg PO DAILY Qty: 30 0RF Continued multivitamin Tablet 1 tab PO DAILY Linzess 145 mcg capsule 145 mcg PO DAILY (DME) Cuff and Collar See Rx Instructions .Route .MEDSUPPLY Qty: 1 0RF Rx Instructions: As directed carbidopa-levodopa 50-200 mg tablet extended release 2 tab PO BID Discontinued hydralazine 10 mg tablet 10 mg PO BID PRN (Reason: hypertention) trazodone 50 mg tablet 50 mg PO BEDTIME midodrine 2.5 mg tablet 2.5 mg PO TID lactulose 10 gram/15 mL solution 30 ml PO DAILY Discharge Orders: Discharge Order (Routine); Ordered 11/13/24 Ordered By: Mitch Sultana Referrals: Wilman Anand MD [Primary Care Provider] - 11/21/24 1:20 pm Discharge Diet: Usual diet Discharge Activity: Increase activity as tolerated Patient Instructions: Amoxicillin/Clavulanate Potassium (By mouth), Tamsulosin (By mouth), Urinary Tract Infection in Men (DC), Community Acquired Pneumonia (DC), Opioid Safety Discharge Attestations Time Spent in Discharge Care*: greater than 30 min Status at Discharge: Cognitive status at discharge: mildly impaired cognition , Behavioral status at discharge: cooperative , Functional status at discharge: other assisted ambulation , Overall status at discharge: patient is progressing back to baseline Quality Metrics Clinical Quality Measures [ No reported AMI, CVA or VTE this stay] Coding Level of Care Code Acute Code for Chg Fwd Diagnoses Parkinson disease, symptomatic G20.A1 Nonrheumatic mitral valve regurgitation I34.0 Cardiac valve disease etiology: nonrheumatic Pneumonia J18.9 Falls R29.6 Urinary retention R33.9
[2024-11-13 12:00] VITALS: BP 117/83; PULSE 84; RESP 16; TEMP 36.6; O2SAT 95
--- NOTE | 2024-11-13 12:40 | PC.SOCIAL ---
IMM updated Updated pt's son on IMM. No questions voiced. Provided pt a copy. Initialed, dated, & timed copy in chart.
--- NOTE | 2024-11-13 13:46 | PC.NURSE ---
Discussed discharge with patient and son. Discussed new medications, continued medications and discontinued medications with son. Patient unable to comprehend due to language barrier. Son verbalized understanding of all and made notes on his paper for antibiotics.
[2024-11-13 13:51] VITALS: BP 117/83; PULSE 84; RESP 16; TEMP 36.6; O2SAT 95
== END 2024-11-13 13:20 | disposition home or self-care (01) | DRG 179 ==
LOC: ER 11:00 → MEDSURG 13:46
PROVIDERS: Admitting Provider Internal Medicine; Emergency Provider Family Medicine; PCP Family Medicine; Visit Provider Hospitalist
DX: J69.0 Pneumonitis due to inhalation of food and vomit (principal); W18.30XA Fall on same level, unspecified, initial encounter; G20.A1 Parkinson's disease without dyskinesia, without mention of fluctuations; F02.80 Dementia in other diseases classified elsewhere, unspecified severity, without behavioral disturbance, psychotic disturbance, mood disturbance, and anxiety; K21.9 Gastro-esophageal reflux disease without esophagitis; E78.5 Hyperlipidemia, unspecified; R97.20 Elevated prostate specific antigen [PSA]; I34.0 Nonrheumatic mitral (valve) insufficiency; I10 Essential (primary) hypertension; K59.00 Constipation, unspecified; K76.0 Fatty (change of) liver, not elsewhere classified; N28.1 Cyst of kidney, acquired; N40.1 Benign prostatic hyperplasia with lower urinary tract symptoms; R33.8 Other retention of urine; E86.0 Dehydration; R13.10 Dysphagia, unspecified; Z79.891 Long term (current) use of opiate analgesic
CPT/HCPCS: 36415; 36600; 51702; 51798; 70450; 71045; 71260; 74177; 74230; 76705; 80048; 80051; 80053; 81001; 82140; 82330; 82550; 82805; 83605; 83690; 84145; 85025; 87040; 87449; 87637; 92523; 92610; 92611; 93005; 96365; 96367; 96372; 97161; 97165; 97530; 99285; J1644; J1956; J2543; J3480; J7120; J9999

== ENCOUNTER 2025-07-04 11:20 | Inpatient (IN) | payer MEDICARE, MEDICAID, SELFPAY ==
[2025-07-04] VITALS (8 sets, daily range): BP systolic 95–133; BP diastolic 66–87; PULSE 82–103; RESP 16–26; TEMP 36.8–37; O2SAT 92–97; BMI 13.7; BMI 13.8
--- NOTE | 2025-07-04 11:29 | XR_ITS ---
WS: [id number] XR chest 1V portable [id number] REASON FOR EXAM: Possible Sepsis FINDINGS: Moderate tortuosity of the thoracic aorta. Widening of the upper mediastinum is likely due to tortuous great vessel origins. The heart is not significantly enlarged. There is opacification in the left lower hemithorax which is secondary to airspace consolidation in the left lower lung and pleural effusion. Reticular interstitial and groundglass lung opacities are also present in the left lower lobe. Significant atelectasis in the right middle lobe. There are also reticular interstitial and groundglass lung opacities in the right lower lobe. Probable small right pleural effusion. XR/XR chest 1V portable [id number] IMPRESSION: Findings are most suggestive of bilateral pneumonitis, atelectasis, and pleural effusion. Patient had somewhat similar findings demonstrated on a CT scan of the chest .
--- NOTE | 2025-07-04 11:36 | CTR_ITS ---
PROCEDURE INFORMATION: Exam: CT Head Without Contrast Exam date and time: 07/04/2025 12:21 PM Age: 75 years old Clinical indication: Altered mental status/memory loss; Additional info: AMS TECHNIQUE: Imaging protocol: Computed tomography of the head without contrast. Radiation optimization: All CT scans at this facility use at least one of these dose optimization techniques: automated exposure control; mA and/or kV adjustment per patient size (includes targeted exams where dose is matched to clinical indication); or iterative reconstruction. COMPARISON: CT head wo con* [id number] 11/09/2024 10:52 AM RADIATION DOSE METRICS: Total DLP (mGy-cm): 787.3 FINDINGS: Brain: Mild cerebral white matter hypodensity which is most consistent with chronic small-vessel ischemic changes. Moderate cerebral and cerebellar volume loss. No mass effect or midline shift. No intracranial hemorrhage. Cerebral ventricles: No ventriculomegaly. Paranasal sinuses: Very small amount of ethmoid and sphenoid sinus mucosal thickening. Mastoid air cells: Visualized mastoid air cells are well aerated. Bones: Unremarkable. No acute fracture. Soft tissues: Unremarkable. CT/CT head wo con* [id number] IMPRESSION: No acute intracranial abnormality.
[2025-07-04 11:45] LABS: ABG PCO2 33.5 mmHg (35-45); ABG PH Result 7.52 (7.35-7.45); Alveolar-Arterial Oxygen Gradi 24.0 mmHg (5-10); Arterial Blood Gas Hematocrit 33.3 % (42-52); Blood Gas Allen Test Pos; Blood Gas LPM 5.0 %; Blood Gas Operator Identificat AMH; Blood Gas Sample Site Radial, right; Blood Gas Sample Type Arterial; Carboxyhemoglobin 1.0 %THgb (0.4-20.1); Glucose Level-ABG 130.0 mg/dL (70-115); HCO3 ABG 27.0 mmol/L (22-26); Ionized Calcium Level - ABG 1.2 mmol/L (1.1-1.4); Methemoglobin 1.0 % (0.4-1.5); Oxygen Saturation ABG 92.4; PO2 ABG 59.6 mmHg (80.0-100.0); PO2 FiO2 Ratio Arterial Blood 149; Potassium Level - ABG 3.4 mmol/L (3.5-5.0); Sodium Level - ABG 145.0 mmol/L (131-143)
--- NOTE | 2025-07-04 11:49 | ECG_ITS ---
[facility] Test Date: 2025-07-04 Pat Name: Fito Haywood Department: Room: Gender: Male Electronic Development Technician: : 1950 Requested By: Azar Mendoza Order Number: [id number] Deborah MD: Anita Nam M.D. Measurements Intervals [place] Rate: 85 P: 78 DE: 138 QRS: 21 QRSD: 137 T: 78 QT: 393 QTc: 470 Interpretive Statements SINUS RHYTHM INTRAVENTRICULAR CONDUCTION DELAY [130+ ms QRS DURATION] SEPTAL MYOCARDIAL INFARCTION , OF INDETERMINATE AGE [40+ ms Q WAVE IN V1/V2] Compared to ECG 11/09/2024 09:35:53 Intraventricular conduction delay now present Right bundle-branch block no longer present Left anterior fascicular block no longer present Myocardial infarct finding still present Electronically Signed On 07-05-2025 00:07:57 IRON LAUNDER OPERATOR by Anita Nam M.D. [email or web address]
[2025-07-04 12:01] LABS: Hematocrit 35.6 % (37-53); Hemoglobin 10.60 g/dL (11.27-16.99); Mean Corpuscular HGB Conc 29.8 g/dL (30-55); Mean Corpuscular Hemoglobin 26.1 pg (27-33); Mean Corpuscular Volume 87.7 fl (82-101); Nucleated Red Blood Cells % 0 %; Platelet Count 302 10^3/cmm (157-399); Red Blood Count 4.06 10^6/uL (3.85-5.65); White Blood Count 6.95 10^3/uL (3.29-11.43)
--- NOTE | 2025-07-04 12:01 | W.ED.WEAKNES ---
HPI - Weakness General: Chief complaint: Weakness Stated complaint: weakness Time Seen by Provider: 07/04/25 11:23 Source: family and EMS Mode of arrival: EMS Limitations: altered mental status History of Present Illness: 75-year-old male history of Parkinson's here by EMS family states had increased weakness over the last 2 weeks and over the last 2 to 3 days he has became unresponsive not able to ambulate. Patient was found hypoxic patient is very cachectic here and unresponsive. No recent known illness or fever or vomiting. Related Data Home Medications ?Medication ?Instructions ?Recorded ?Confirmed multivitamin 1 tab PO DAILY 12/18/21 07/04/25 carbidopa ER 50 mg-levodopa 200 mg 2 tab PO BID 11/09/24 07/04/25 tablet,extended release hydralazine 10 mg tablet 10 mg PO BID PRN bp 07/04/25 07/04/25 linaclotide 290 mcg capsule 290 mcg PO DAILY 07/04/25 07/04/25 (Linzess) midodrine 2.5 mg tablet 2.5 mg PO TID 07/04/25 07/04/25 pantoprazole 40 mg tablet,delayed 40 mg PO DAILY 07/04/25 07/04/25 release Previous Rx's ?Medication ?Instructions ?Recorded Cuff and Collar #1 ea 06/06/24 tamsulosin 0.4 mg capsule 0.4 mg PO DAILY #30 caps 11/13/24 Allergies Allergy/AdvReac Type Severity Reaction Status Date / Time No Known Allergies Allergy Verified 06/20/24 15:17 Review of Systems General: Reports: ROS unobtainable due to mental status PFSH ED PFSH: Medical History (Updated 07/04/25 @ 13:09 by Azar Mendoza MD) Hx of gastroesophageal reflux (GERD) History of back pain Hx of hyperlipidemia Elevated PSA Lower urinary tract symptoms (LUTS) Mitral valve regurgitation Palpitation Hx of primary hypertension Surgical History History of back surgery Family History Other CAD (coronary artery disease) Diabetes Denies family history of Cancer Hypertension Social History Smoking and tobacco/nicotine status: unknown if used tobacco/nicotine Physical Exam Const: COMMON NORMALS: negative for patient oriented x3 and negative for alert GENERAL APPEARANCE: ill appearing and frail appearing HENMT: COMMON NORMALS: normocephalic and atraumatic HEAD & SCALP: normocephalic and atraumatic Eye: COMMON NORMALS: Equal, round and reactive pupils present and EOMs intact bilaterally PUPIL: Yes Equal, round and reactive pupils present Neck/C-Spine: COMMON NORMALS: full ROM and supple Chest: COMMONS NORMALS: normal inspection of the chest Resp: COMMON NORMALS: No retractions and No use of accessory muscles EFFORT & INSPECTION: Yes tachypneic AUSCULTATION: rales Cardio: COMMON NORMALS: regular rate, regular rhythm and No murmurs present (Cardio) RATE: regular rate RHYTHM: regular rhythm GI: COMMON NORMALS: Normal to inspection, nondistended, normoactive bowel sounds present, Soft to palpation, non-tender and no masses PALPATION: Yes Soft to palpation Extremity: COMMON NORMALS: normal to inspection and full ROM Neuro: COMMON NORMALS: negative for patient oriented x3 and negative for moves all extremities SENSORIUM/ORIENTATION: No alert Psych: COMMON NORMALS: negative for mental status grossly normal Skin: COMMON NORMALS: no rashes or lesions noted and no wounds GENERAL SKIN EXAM: no rashes or lesions noted Course Vital Signs: Vital signs: Vital Signs Temperature 98.3 F 07/04/25 11:25 Pulse Rate 93 07/04/25 11:55 Respiratory Rate 26 H 07/04/25 11:25 Blood Pressure 103/67 07/04/25 11:55 Pulse Oximetry 97 07/04/25 11:55 Oxygen Delivery La thod Nasal Cannula 07/04/25 11:55 Oxygen Flow Rate 5 07/04/25 11:55 MDM - Weakness Medical Decision Making 75-year-old male presented here with altered mental status along with hypoxia. Differential includes pneumonia, UTI, stroke, intracerebral hemorrhage. Patient's head CT here was reviewed by me showed no acute findings no signs of intracranial hemorrhage. Patient's only been responsive to painful stimuli here not able to answer any questions. His oxygen is maintained normal here on 4 L. X-ray shows likely bilateral pneumonia did start him on IV antibiotics. Patient is very cachectic as well with likely failure to thrive. Did review his labs with no significant abnormalities. Did interpret his EKG showed normal sinus rhythm heart rate [address] elevation QRS 137 QTc 436 I did speak to hospitalist OR JAMSHID who is admitting. Medical Records I reviewed the patient's medical records. Lab Data I reviewed the patient's lab results. 07/04/25 11:41 07/04/25 11:41 Radiology Impressions Chest X-Ray 07/04/25 11:29 IMPRESSION: Findings are most suggestive of bilateral pneumonitis, atelectasis, and pleural effusion. Patient had somewhat similar findings demonstrated on a CT scan of the chest 11/09/2024. Head CT 07/04/25 11:36 IMPRESSION: No acute intracranial abnormality. Laboratory Results WBC 6.95 10^3/uL (3.29-11.43) 07/04/25 11:41 RBC 4.06 10^6/uL (3.85-5.65) 07/04/25 11:41 Hgb 10.60 g/dL (11.27-16.99) L 07/04/25 11:41 Hct 35.6 % (37-53) L 07/04/25 11:41 MCV 87.7 fl (82-101) 07/04/25 11:41 MCH 26.1 pg (27-33) L 07/04/25 11:41 MCHC 29.8 g/dL (30-55) L 07/04/25 11:41 RDW 14.8 % (12.1-15.1) 07/04/25 11:41 Plt Count 302 10^3/cmm (157-399) 07/04/25 11:41 MPV 10.2 fL (7.4-10.4) 07/04/25 11:41 Neut % (Auto) 84.8 % 07/04/25 11:41 Lymph % (Auto) 12.1 % 07/04/25 11:41 [place]ett % (Auto) 2.2 % 07/04/25 11:41 Eos % (Auto) 0.4 % 07/04/25 11:41 Baso % (Auto) 0.1 % 07/04/25 11:41 Neut # (Auto) 5.89 10^3/uL (1.8-7.7) 07/04/25 11:41 Lymph # (Auto) 0.8 10^3/uL (0.8-4.8) 07/04/25 11:41 [place]ett # (Auto) 0.2 10^3/uL (0.2-0.9) 07/04/25 11:41 Eos # (Auto) 0.0 10^3/uL (0.0-0.8) 07/04/25 11:41 Baso # (Auto) 0.0 10^3/uL (0.0-0.1) 07/04/25 11:41 Nucleated RBC % (auto) 0 % 07/04/25 11:41 Nucleated RBCs # 0.0 /100WBC 07/04/25 11:41 PT 15.60 SECONDS (12.1-14.9) H 07/04/25 11:41 INR 1.15 (0.8-1.2) 07/04/25 11:41 Specimen Type Arterial 07/04/25 11:33 Sample Site Radial, right 07/04/25 11:33 ABG pH 7.52 (7.35-7.45) H 07/04/25 11:33 ABG pCO2 33.5 mmHg (35-45) L 07/04/25 11:33 ABG pO2 59.6 mmHg (80.0-100.0) L 07/04/25 11:33 ABG PO2/FiO2 Ratio 149 07/04/25 11:33 ABG HCO3 27.0 mmol/L (22-26) H 07/04/25 11:33 ABG O2 Saturation 92.4 07/04/25 11:33 ABG Base Excess 4.1 mmol/L (-2.0-2.0) H 07/04/25 11:33 Evans Test Pos 07/04/25 11:33 A-a O2 Gradient 24.0 mmHg (5-10) H 07/04/25 11:33 Hematocrit 33.3 % (42-52) L 07/04/25 11:33 Hgb O2 Saturation 90.6 % (95-100) L 07/04/25 11:33 Carboxyhemoglobin 1.0 %THgb (0.4-20.1) 07/04/25 11:33 Methemoglobin 1.0 % (0.4-1.5) 07/04/25 11:33 Total Hemoglobin 10.9 g/dL (14-18) L 07/04/25 11:33 Sodium 145.0 mmol/L (131-143) H 07/04/25 11:33 Potassium 3.4 mmol/L (3.5-5.0) L 07/04/25 11:33 Glucose 130.0 mg/dL (70-115) H 07/04/25 11:33 Ionized Calcium 1.2 mmol/L (1.1-1.4) 07/04/25 11:33 O2 Delivery Device Nc 07/04/25 11:33 O2 Liters/Min 5.0 % 07/04/25 11:33 FiO2 40.0 % 07/04/25 11:33 Tire Cord Weaver ID Amh 07/04/25 11:33 Sodium 143 mmol/L (136-145) 07/04/25 11:41 Potassium 3.8 mmol/L (3.5-5.1) 07/04/25 11:41 Chloride 108 mmol/L (98-107) H 07/04/25 11:41 Carbon Dioxide 25 mmol/L (22-29) 07/04/25 11:41 Anion Gap 13.8 (5-19) 07/04/25 11:41 BUN 32 mg/dL (8-23) H 07/04/25 11:41 Creatinine 0.6 mg/dL (0.7-1.2) L 07/04/25 11:41 GFR Calculation Not Reportable 07/04/25 11:41 Glucose 120 mg/dL (65-115) H 07/04/25 11:41 Calculated Osmolality 304 mOsm/kg (285-295) H 07/04/25 11:41 Lactic Acid 2.5 mmol/L (0.5-2.2) H 07/04/25 11:41 Calcium 8.4 mg/dL (8.5-10.5) L 07/04/25 11:41 Magnesium 2.2 mg/dL (1.7-2.3) 07/04/25 11:41 Total Bilirubin 0.9 mg/dL (0.15-1.2) 07/04/25 11:41 AST 14 U/L (0-40) 07/04/25 11:41 ALT 9 U/L (0-41) 07/04/25 11:41 Alkaline Phosphatase 52 U/L (40-130) 07/04/25 11:41 Ammonia 22 umol/L (16-60) 07/04/25 11:41 Creatine Kinase 74 U/L (39-308) 07/04/25 11:41 Total Protein 8.1 g/dL (6.6-8.7) 07/04/25 11:41 Albumin 2.4 g/dL (3.5-5.2) L 07/04/25 11:41 Globulin 5.7 g/dL (1.3-4.6) H 07/04/25 11:41 Urine Color [place] (Yellow) A 07/04/25 12:09 Urine Appearance Clear (CLEAR) 07/04/25 12:09 Urine pH 5.5 (5-7) 07/04/25 12:09 Ur Specific [place] 1.028 (1.005-1.030) 07/04/25 12:09 Urine Protein 1+ (Negative) A 07/04/25 12:09 Urine Glucose (UA) Negative (Normal) 07/04/25 12:09 Urine Ketones Negative (Negative) 07/04/25 12:09 Urine Blood Negative (Negative) 07/04/25 12:09 Urine Nitrate Negative (Negative) 07/04/25 12:09 Urine Bilirubin 1+ (Negative) H 07/04/25 12:09 Urine Urobilinogen 2.0 mg/dL (Negative) H 07/04/25 12:09 Ur Leukocyte Esterase Trace (Negative) A 07/04/25 12:09 Urine RBC 0-2 /hpf (0-2) 07/04/25 12:09 Urine WBC 0-5 /hpf (0-5) 07/04/25 12:09 Ur Squamous Epith Cells 0-5 /hpf (0-5) 07/04/25 12:09 Amorphous Sediment Not Reportable 07/04/25 12:09 Urine Bacteria None seen /hpf (NONE) 07/04/25 12:09 Hyaline Casts 7.85 /lpf 07/04/25 12:09 All radiology interpretation(s) finalized by discharge EKG Data EKG 1: I personally reviewed and interpreted this EKG as follows: EKG interpretation date: 07/04/25 EKG interpretation time: 11:49 Interpretation: nsr hr [address] elevation qrs 137 qtc 436 Discharge Plan Discharge Patient Disposition: Admitted As Inpatient Clinical Impression: Pneumonia, Altered mental status Condition: Stable Coding Level of Care Code ED Finance Attorney for Chg Maddy
[2025-07-04 12:17] LABS: INR 1.15 (0.8-1.2); Prothrombin Time 15.60 SECONDS (12.1-14.9)
--- NOTE | 2025-07-04 12:17 | PC.PHAR ---
Unable to verify with pt if he is taking any of his medications. Most current medication is Midodrine 2.5mg tid 06/21/25 30ds. Verified med list with Matthew in [place].
[2025-07-04 12:21] LABS: Ammonia 22 umol/L (16-60)
[2025-07-04 12:24] LABS: Alanine Aminotransferase 9 U/L (0-41); Albumin Level 2.4 g/dL (3.5-5.2); Alkaline Phosphatase 52 U/L (40-130); Aspartate Amino Transferase 14 U/L (0-40); Blood Urea Nitrogen 32 mg/dL (8-23); Calcium 8.4 mg/dL (8.5-10.5); Carbon Dioxide 25 mmol/L (22-29); Chloride 108 mmol/L (98-107); Globulin 5.7 g/dL (1.3-4.6); Glucose 120 mg/dL (65-115); Magnesium 2.2 mg/dL (1.7-2.3); Osmolality Calculated 304 mOsm/kg (285-295); Sodium 143 mmol/L (136-145); Total Protein 8.1 g/dL (6.6-8.7)
[2025-07-04 12:26] LABS: Lactic Sepsis W/Reflex 2.5 mmol/L (0.5-2.2)
[2025-07-04 12:29] LABS: Anion Gap 13.8 (5-19); Potassium 3.8 mmol/L (3.5-5.1)
[2025-07-04 12:31] LABS: Glucose Urine UA Negative (Normal); Nitrate Urine Negative (Negative); Specific Gravity, Urine 1.028 (1.005-1.030)
[2025-07-04 12:33] LABS: Add Urine Microscopic? YES
[2025-07-04] MEDS: cefTRIAXone 1,000 mg SDV 1000 MG IVP (12:47)
[2025-07-04 12:51] LABS: UA Slide Review UA Slide Review Perf
[2025-07-04 13:45] LABS: Reflex Lactate Order REFLEX LACTIC ORDERD
--- OUTSIDE RECORDS SUMMARY | 2025-07-04 14:33 | XMS_ITS | Clinical Summary ---
Author Organization [facility] Administrative Offices Address [address] [place] [address] Care Team Providers Care Needle Molder Name Role Phone Unavailable Primary Care Provider [...] (1 of 2) 2002 INFLUENZA VACCINE (#1) 2025 RSV VACCINE (60+ or ) (1 - 1-dose 75+ series) 2027 Insurance MEDICAID [facility] DUAL COMPLETE PPO [facility] [id number]
--- OUTSIDE RECORDS SUMMARY | 2025-07-04 14:33 | XMS_ITS | Continuity of Care Document ---
Author Organization JOSE Boyce [facility], [facility], [facility] ([facility]) Address [address] [place] [address] Care Team Providers Care Recovery Operator Name Role Phone SRINIVAS ANAND Primary Care Provider Unavailabl e Assessment Encounter Date Assessment Date Assessment LastModified by Organization Details LastModified Time 06/27/2025 06/27/2025 Attempted to discuss with son possible hospice care for patient. With some language barrier this is difficult. Grandson in room as well. Son reports he has noticed that he has been getting weaker worse over the past 2 weeks. Will get some labs today. Not available 06/27/2025 14:42:28 Plan of Treatment Reminders Order Date Submit Date Provider Last Modified By Organization Details Last Modified Time Details Appointments OFFICE VISIT 15 2024 01:45P Andre Anand MD Not available Not available Not available RECHECK 15 2025 09:30A Andre Anand MD Not available Not available Not available Lab vitamin D, 25-hydr oxy, total, serum 2024 025 [email or web address] [facility], [address], [place], [address], 06/28/2025 05:49:27 vitamin B12, serum 2024 025 [email or web address] [facility], [address], [place], [address], 06/28/2025 05:49:26 CMP, serum or plasma 2024 025 [facility], [address], [address] [place], [address], 06/27/2025 16:58:57 CBC 2024 025 [facility], [address], [address], [place], [address], 06/27/2025 15:14:36 urinaly sis, complet e 2024 025 [facility], [address], [address], [place], [address], 06/27/2025 15:56:14 culture , urine 2024 025 JEAN PIERRE [facility], [address] [place] [address], [address], [place], [address], 06/28/2025 18:32:41 Referral None recorde d. Procedures None recorde d. Surgeries None recorde d. Imaging None recorde d. Medication Orders None recorde d. Patient TargetsNo targets recorded. Patient Instructions Encounter Date Encounter Id Patient Instructions Last Modified By Organization Details Last Modified Time 06/27/2025 [id number] Call or return for questions or concerns. Not available 06/28/2025 10:47:27 Reason for Referral None Reported. Results Created Date Observation Date Name Description Value Unit Range Abnormal Flag Note LastModifiedBy Organization Detail LastModifiedTime 06/27/2006/27/2025 CBC WBC 8.8 x10 4.5-10 .5 Not Available [facility] [address], [place], [address], 06/27/2025 15:14:36 06/27/20 25 06/27/2025 CBC RBC 4.96 x10 4.30-5 .90 Not Available [facility] [address], [place], [address], 06/27/2025 15:14:36 06/27/20 25 06/27/2025 CBC HGB 14.2 g/dL 13.5-1 8.0 Not Available [facility] [address] [facility] 1, [place], [address], 06/27/2025 15:14:36 06/27/20 25 06/27/2025 CBC HCT 43.6 % 35.0-6 0.0 Not Available [facility] [address] [facility] [address] [facility] 1, [place], [address], 06/27/2025 15:14:36 06/27/20 25 06/27/2025 CBC MCV 87.9 fL 80.0-9 9.9 Not Available [facility] [address] [facility] [address] [facility] 1, [place], [address], 06/27/2025 15:14:36 06/27/20 25 06/27/2025 CBC MCH 28.7 pg 27.0-3 2.0 Not Available [facility] [address] [facility] [address] [facility] 1, [place], [address], 06/27/2025 15:14:36 06/27/20 25 06/27/2025 CBC MCHC 32.6 g/dL 32.0-3 6.0 Not Available [facility] [address] [facility] [address] [facility] 1, [place], [address], 06/27/2025 15:14:36 06/27/20 25 06/27/2025 CBC RDW 15.8 % 11.5-1 4.5 high Not Available [facility] [address] [facility] [address] [facility] 1, [place], [address], 06/27/2025 15:14:36 06/27/20 25 06/27/2025 CBC plt 367.3 x10 150.0- 451.0 Not Available [facility] [address] [facility] [address] [facility] 1, [place], [address], 06/27/2025 15:14:36 06/27/20 25 06/27/2025 CBC lymphocytes % 13.5 % 20.0-5 0.0 low Not Available [facility] [address] [facility] [facility], [place], [address], 06/27/2025 15:14:36 06/27/20 25 06/27/2025 CBC granulcytes % 82.9 % 30.0-7 0.0 high Not Available [facility] [address] [facility] 1, [place], [address], 06/27/2025 15:14:36 06/27/20 25 06/27/2025 CBC monocytes % 3.0 % 2.0-16 .0 Not Available [facility] [address] [facility], [place], [address], 06/27/2025 15:14:36 06/27/20 25 06/27/2025 CBC granulcytes# 7.3 x10 Not Lara ilable [facility] [address] [facility] 1, [place], [address], 06/27/2025 15:14:36 06/27/20 25 06/27/2025 CBC lymphocytes # 1.2 x10 Not Available [facility] [address] [facility] 1, [place], [address], 06/27/2025 15:14:36 06/27/20 25 06/27/2025 CBC monocytes # 0.3 x10 Not Avai lable [facility] [address] [facility] 1, [place], [address], 06/27/2025 15:14:36 06/27/20 25 06/27/2025 URINA LYSIS WITH MICRO color OFELIA Not Available [facility] [address] [facility] 1, [place], [address], 06/27/2025 15:56:14 06/27/2006/27/2025 URINA LYSIS WITH MICRO clarity CLEAR Not Available [facility] [address] [facility] [address], [place], [address], 06/27/2025 15:56:14 06/27/20 25 06/27/2025 URINA LYSIS WITH MICRO glu TRACE high Not Available [facility] [address], [place], [address], 06/27/2025 15:56:14 06/27/2006/27/2025 URINA LYSIS WITH MICRO bili 1+ high Not Available [facility] [address], [place], [address], 06/27/2025 15:56:14 06/27/2006/27/2025 URINA LYSIS WITH MICRO ket TRACE high Not Available [facility] [address], [place], [address], 06/27/2025 15:56:14 06/27/2006/27/2025 URINA LYSIS WITH MICRO S.g >1.030 1.005- 1.025 high > Not Available [facility] [address], [place], [address], 06/27/2025 15:56:14 06/27/20 25 06/27/2025 URINA LYSIS WITH MICRO pH 5.5 5.0-7. 0 Not Available [facility] [address], [place], [address], 06/27/2025 15:56:14 06/27/20 25 06/27/2025 URINA LYSIS WITH MICRO pro 1+ high Not Available [facility] [address], [place], [address], 06/27/2025 15:56:14 06/27/2010 0706/27/2025 URINA LYSIS WITH MICRO uro 4.0 E.U./D L Not Available [facility] [address], [place], [address], 06/27/2025 15:56:14 06/27/20 25 06/27/2025 URINA LYSIS WITH MICRO nit NEGATI VE Not Available [facility] [address] [facility] [address], [place], [address], 06/27/2025 15:56:14 06/27/20 25 06/27/2025 URINA LYSIS WITH MICRO blo NEGATI VE Not Available [facility] [address], [place], [address], 06/27/2025 15:56:14 06/27/20 25 06/27/2025 URINA LYSIS WITH MICRO rafael NEGATI VE Not Available [facility] [address] [facility] [address], [place], [address], 06/27/2025 15:56:14 06/27/2006/27/2025 URINA LYSIS WITH MICRO WBC 1-3 abnormal Not Available [facility] [address] [facility] [address], [place], [address], 06/27/2025 15:56:14 06/27/20 25 06/27/2025 URINA LYSIS WITH MICRO RBC 1-2 abnormal Not Available [facility] [address], [place], [address], 06/27/2025 15:56:14 06/27/2006/27/2025 URINA LYSIS WITH MICRO epi cells NEGATI VE Not Available [facility] [address], [place], [address], 06/27/2025 15:56:14 06/27/2006/27/2025 URINA LYSIS WITH MICRO bacteria 3+ MUCUS THREAD S abnormal Not Available [facility] [address] [facility] [address] [facility] 1, [place], [address], 06/27/2025 15:56:14 06/27/2006/27/2025 URINA LYSIS WITH MICRO other NEGATI VE Not Available [facility] [address] [facility] 1, [place], [address], 06/27/2025 15:56:14 06/27/2006/27/2025 CMP (MALE ) glucose 97.0 mg/dL 60.0-9 9.0 Not Available [facility] [address] [facility] 1, [place], [address], 06/27/2025 16:58:57 06/27/20 25 06/27/2025 CMP (MALE ) BUN (blood urea nitrogen) 22.0 mg/dL 10.0-2 6.0 Not Available [facility] [address] [facility] 1, [place], [address], 06/27/2025 16:58:57 06/27/20 25 06/27/2025 CMP (MALE ) creatinine (serum) 0.7 mg/dL 0.4-1. 5 Not Available [facility] [address] [facility] 1, [place], [address], 06/27/2025 16:58:57 06/27/20 25 06/27/2025 CMP (MALE ) BUN/creatini ne ratio 29.73 ratio Not Available [facility] [address] [facility] 1, [place], [address], 06/27/2025 16:58:57 06/27/20 25 06/27/2025 CMP (MALE ) eGFR calculated 110.2 Not Available [facility] [address] [facility] [address] [facility] 1, [place], [address], 06/27/2025 16:58:57 06/27/20 25 06/27/2025 CMP (MALE ) total protein 8.9 g/dL 6.0-8. 5 high Not Available [facility] [address] [facility] [address] [facility] 1, [place], [address], 06/27/2025 16:58:57 06/27/20 25 06/27/2025 CMP (MALE ) total bilirubin 1.3 mg/dL 0.2-1. 3 Not Available [facility] [address] [facility] 1, [place], [address], 06/27/2025 16:58:57 06/27/20 25 06/27/2025 CMP (MALE ) albumin 3.6 g/dL 3.5-5. 5 Not Available [facility] [address] [facility] 1, [place], [address], 06/27/2025 16:58:57 06/27/20 25 06/27/2025 CMP (MALE ) globulin 5.3 calc Not Available [facility] [address] [facility] 1, [place], [address], 06/27/2025 16:58:57 06/27/20 25 06/27/2025 CMP (MALE ) AST (SGOT) 21.0 U/L 0.0-46 .0 Not Available [facility] [address] [facility] 1, [place], [address], 06/27/2025 16:58:57 06/27/20 25 06/27/2025 CMP (MALE ) altv (SGPT) 17.0 U/L 13.0-6 9.0 normal Not Available [facility] [address] [facility], [place], [address], 06/27/2025 16:58:57 06/27/20 25 06/27/2025 CMP (MALE ) A/G ratio 0.7 ratio Not Available [facility] [address] [facility] 1, [place], [address], 06/27/2025 16:58:57 06/27/2006/27/2025 CMP (MALE ) ALP phos 68.0 U/L 30.0-1 40.0 normal Not Available [facility] [address] [facility] 1, [place], [address], 06/27/2025 16:58:57 06/27/20 25 06/27/2025 CMP (MALE ) calcium 8.9 mg/dL 8.4-10 .5 Not Available [facility] [address] [facility] 1, [place], [address], 06/27/2025 16:58:57 06/27/20 25 06/27/2025 CMP (MALE ) sodium 140.0 mmol/ L 136.0- 145.0 Not Available [facility] [address] [facility] 1, [place], [address], 06/27/2025 16:58:57 06/27/20 25 06/27/2025 CMP (MALE ) potassium 4.8 mmol/ L 3.5-5. 1 Not Available [facility] [address] [facility] 1, [place], [address], 06/27/2025 16:58:57 06/27/20 25 06/27/2025 CMP (MALE ) chloride 106.0 mmol/ L 98.0-1 10.0 normal Not Available [facility] [address] [facility] 1, [place], [address], 06/27/2025 16:58:57 06/27/20 25 06/27/2025 CMP (MALE ) C02 23.0 mmol/ L 22.0-3 1.0 Not Available [facility] [address] [facility] 1, [place], [address], 06/27/2025 16:58:57 06/27/20 25 06/27/2025 CMP (MALE ) anion gap 11.0 calc Not Available [facility] [address], [place], [address], 06/27/2025 16:58:57 06/27/20 25 06/27/2025 CMP (MALE ) osmolality 292.2 calc Not Available [facility] [address], [place], [address], 06/27/2025 16:58:57 06/27/20 25 06/28/2025 VITAM IN B12 vitamin B12 388 pg/mL 200-11 00 normal Pleas e Note: Altho ugh the refer ence range for vitam in B12 is 200-1 100 pg/mL , it has been repor helga that betwe en 5 and 10% of patie nts with value s betwe en 200 and 400 pg/mL may exper ience neuro psych iatri c and hemat ologi c abnor malit ies due to occul t B12 defic iency ; less than 1% of patie nts with value s above 400 pg/mL will have sympt oms. Not Available [employer] [facility] [address] , [place], [address], 06/28/2025 05:49:26 06/27/2006/28/2025 VITAM IN D,25- OH,TO KHALIF,I A vitamin D,25-oh,tota l,ia 32 NG/mL 30-100 normal Vitam in D Statu s 25-OH Vitam in D: Defic iency : <20 ng/mL Insuf ficie ncy: 20 - 29 ng/mL Optim al: > or = 30 ng/mL For 25-OH Vitam in D testi ng on patie nts on D2-berg pplem entat ion and patie nts for whom quant itati on of D2 and D3 fract ions is requi red, the [employer] Assur eD(TM ) 25-OH VIT D, (D2,D 3), LC/MS /MS is recom song d: order code 11996 (radha ents >2yrs ). See Note 1 Note 1 For addit ional infor marleny smith refer to http: //[facility] jose juan tony.Valerio stDia gnost ics.c om/fa q/FAQ 199 (This link is being provi ded for infor shaun villanueva/ educa darrel l purpo ses only. ) Not Available [address] [place], [address], 06/28/2025 05:49:26 06/27/20 25 06/28/2025 CULTU RE, URINE , ROUTI NE culture, urine, routine SEE NOTE CULTU RE, URINE , ROUTI NE Micro Numbe r: [id number] Test Statu s: Final Speci men Sourc e: Urine Speci men Quali ty: Adequ ate Resul t: Mixed genit al yousuf isola helga. These super ficia l bacte oksana are not indic ative of a urina ry tract infec tion. No furth er organ ism ident ifica tion is warra nted on this speci men. If clini ivis indic ated, recol lect clean -catc h, mid-s tream urine and trans tere immed iatel y to Urine Cultu re Trans port Tube. Not Available [facility] [address] [address] [place], [address], 06/28/2025 18:32:41 Result Notes None recorded. Problems Name Problem SNOMED Code Status Onset Date Resolution Date Notes Provider Name and Address Organization Details Recorded Time Malignan t neoplasm of prostate 995873179 Completed 202004/24/2021 PROSTATE CA - Status is Inactive ; Recorded 04/24/20 21 10:59AM by Flor Bhakta PA-C, Annotati on/Adden dum; Promoted ; acuity set as *; Not Available [employer] 3 03:10:22 Gastroes ophageal reflux disease 964795926 Active 2021 GERD; 04/10/20 22 11:21AM by Ernst Reynoso, Office Visit; Promoted ; acuity set as *; GERD (GASTROE SOPHAGEA L REFLUX DISEASE) ; Recorded 04/10/20 11:21AM by Ernst Reynoso, Office Visit; Promoted ; acuity set as *; ERNST deleon [facility] 5 16:18:38 Benign [facility] hyperten milton 9976106 Active 2021 Hyperten milton; 04/10/20 22 11:21AM by Ernst Reynoso, Office Visit; Promoted ; acuity set as *; ERNST deleon [facility] 5 16:18:25 Anxiety state 183390368 Active 2021 ANXIETY AND DEPRESSI ON; Recorded 04/10/20 22 11:21AM by Ernst Reynoso, Office Visit; Promoted ; acuity set as *; ERNST deleon [facility] 5 16:18:20 Backache 674151668 Active 2021 Back pain; 04/10/20 22 11:21AM by Ernst Reynoso, Office Visit; Promoted ; acuity set as *; ERNST deleon [facility] 5 16:20:21 Hyperlip idemia 90547045 Active 2022 Hyperlip idemia; 04/10/20 22 11:21AM by Ernst Reynoso, Office Visit; Promoted ; acuity set as *; ; Start Date : 04/10/20 22 HYPER LIPIDEMI A; Recorded 10/06/19 23 2:05PM by Srinivas Anand MD, Office Visit; Promoted ; acuity set as *; ERNST deleon [facility] 5 16:18:43 Hyperten sive disorder 44914766 Active 2022 ESSENTIA L HYPERTEN MILTON; Recorded 10/06/19 23 2:05PM by Srinivas Anand MD, Office Visit; Promoted ; acuity set as *; ERNST deleon [facility] 5 16:18:47 Chronic constipa tion 976544802 Active 2022 CONSTIPA TION, CHRONIC; Recorded 10/06/19 2:05PM by Srinivas Anand MD, Office Visit; Promoted ; acuity set as *; ERNST VELASQUEZRIS adrienne, [facility] 5 16:18:28 Parkinso n's disease 97246405 Active 2022 ERNST REYNOSO [facility], [facility] 5 16:19:04 Orthosta tic hypotens ion 20414763 Active 2022 ERNST deleon, [facility] 5 16:19:43 Chronic cough 80806045 Active 2023 [facility] 16:18:32 Right inguinal hernia 451297218 Active 2023 ERNST V[facility]ASQUEZRIS [facility] 5 16:20:01 Actinic keratosi s 984846997 Active 2023 ERNST VELASQUEZRIS [facility] 5 16:19:31 Muscular hyperton icity 83795869 Active 2024 [facility] 16:20:30 Insomnia 107443834 Active 2024 [facility]ST [facility]NOSO [facility] 5 16:18:56 Mixed urinary incontin ence 548019978 Active 2024 ERNST REYNOSO [facility] 5 16:19:37 Low blood pressure 27485565 Active 2024 Srinivas Anand MD [address] [place] [address], [address] , [facility].Andrew 10:54:10 Flexion contract ure 798787599 Active 2024 Srinivas Anand MD [address] [place] [address], [address] , [facility], LKathy 10:54:25 Unintent ional weight loss 941821437 Active 2024 Srinivas Anand MD [address] [place] [address], [phone] , [facility], LKathy 10:56:22 Problem Notes None recorded. Medical Equipment None Reported. Allergies No known drug allergies Medications Name Sig Start Date Stop Date Status Note LastModified by Organization Details LastModified Time hydralazi ne 10 mg tablet TAKE 1 TABLET BY MOUTH TWICE DAILY NEEDED 11/21 completed Not Available Not Available Not Available Colace 100 mg capsule two times daily 2019 active Recorded 04/24/20 21 7:44AM by Shayla No LPN, Office Visit; Refill Quantity : 60; Capsule; Not Available Not Available Not Available donepezil 5 mg tablet TAKE 1 TABLET BY MOUTH ONCE DAILY 10/13 completed Not Available Not Available Not Available carbidopa ER 25 mg-levodo pa 100 mg tablet,ex tended release 06/14 completed Not Available Not Available Not Available trazodone 50 mg tablet TAKE 1 TABLET BY MOUTH ONCE DAILY AT BEDTIME 11/21 completed Not Available Not Available Not Available senna leaves every other day 12/26 completed 0; Recorded 10/06/19 23 1:37PM by Anika tony, Office Visit; Not Available Not Available Not Available hydrocodo ne 5 mg-acetam inophen 325 mg tablet TAKE 1 TABLET BY MOUTH EVERY 6 HOURS NEEDED FOR PAIN FOR 7 DAYS 10/13 completed Not Available Not Available Not Available carbidopa ER 50 mg-levodo pa 200 mg tablet,ex tended release TAKE 2 TABLETS BY MOUTH TWICE DAILY active Not Available Not Available No t Available Tessalon Perles 100 mg capsule Take 1 capsule 3 times a day by oral route as needed. 12/26 completed Not Available Not Available Not Available tamsulosi n 0.4 mg capsule Take 1 capsule every day by oral route. 2024 active Not Available Not Available Not Avai lable pantopraz ole 40 mg tablet,de layed release TAKE 1 TABLET BY MOUTH ONCE DAILY active Not Available Not Available No t Available simvastat in 20 mg tablet daily active 0; Recorded 10/06/19 23 1:37PM by Anika tony, Office Visit; Not Available Not Available Not Available midodrine 2.5 mg tablet TAKE 1 TABLET BY MOUTH THREE TIMES DAILY active Not Available Not Available No t Available mirtazapi ne 15 mg tablet TAKE 1 TABLET BY MOUTH ONCE DAILY AT BEDTIME - STOP CITALOPR AM 10/13 completed Not Available Not Available Not Available amoxicill in 875 mg-potass ium clavulana te 125 mg tablet TAKE 1 TABLET BY MOUTH EVERY 12 HOURS FOR 4 DAYS 11/21 completed Not Available Not Available Not Available Senna-S 8.6 mg-50 mg tablet Take 2 tablets every day by oral route for 30 days. 2023 active Not Available Not Available Not Avai lable Senna S 8.6 mg-50 mg tablet two times daily 12/26 completed Recorded 04/10/20 22 11:21AM by Ernst Reynoso, Office Visit; Refill Quantity : 60; Tablet; Not Available Not Available Not Available lactulose 10 gram/15 mL oral solution TAKE 30 ML BY MOUTH ONCE DAILY 11/21 completed Not Available Not Available Not Available oxycodone four times daily as needed 06/14 completed #40; 0; Recorded 10/06/19 23 1:37PM by Anika tony, Office Visit; Not Available Not Available Not Available Aspirin EC daily 11/21 completed 0; Recorded 10/06/19 23 1:37PM by Anika tony, Office Visit; Not Available Not Available Not Available fludrocor tisone daily 06/14 completed Recorded 11/18/19 22 2:05PM by Ernst Reynoso, Office Visit; Refill Quantity : 30; Tablet; Not Available Not Available Not Available propranol ol daily 10/13 completed Recorded 02/18/20 22 1:33PM by Ernst Reynoso, Office Visit; Refill Quantity : 30; Capsule; Not Available Not Available Not Available polyethyl lucy glycol daily 10/13 completed 0; Recorded 10/06/19 23 1:37PM by Anika tony, Office Visit; Not Available Not Available Not Available nortripty line at bedtime 10/13 completed Recorded 04/24/20 21 7:44AM by Shayla No LPN, Office Visit; Refill Quantity : 30; Capsule; Not Available Not Available Not Available donepezil daily 06/14 completed Recorded 10/06/19 23 1:37PM by Anika tony, Office Visit; Refill Quantity : 30; Tablet; Not Available Not Available Not Available Carbidopa -Levodopa CR two times daily 06/14 completed Recorded 04/10/20 22 11:21AM by Ernst Reynoso, Office Visit; Refill Quantity : 60; Tablet; Not Available Not Available Not Available hydrocodo ne 5 mg-acetam inophen 300 mg tablet TAKE 1 TABLET BY MOUTH EVERY 8 HOURS NEEDED FOR PAIN 10/13 completed Not Available Not Available Not Available Linzess 290 mcg capsule TAKE 1 CAPSULE BY MOUTH ONCE DAILY active Not Available Not Available No t Available Linzess daily 09/15 completed RM/bn; 9; Recorded 08/05/20 22 2:06PM by Ernst Reynoso (Authori zed through Srinivas Anand MD), Refill Request; Refill Quantity : 30; Capsule; Not Available Not Available Not Available Vitals Date Recorded Body mass index (BMI) Body weight Provider Name and Address Organization Details Last Updated DateTime 06/27/2025 13.5 kg/m2 16093.31 francia FAUSTIN, [facility] [address] [place], [address], [place] - [facility], .L.Navneet 06/27/2025 14:43:30 Date Recorded Body height Oxygen saturation Oxygen saturation in Arterial blood by Pulse oximetry Heart rate Respiratory rate Systolic And Diastolic Provider Name and Address Organization Details Last Updated DateTime 5 173.99 cm 92 % 92 % 60 /min 18 /min 94/60 mm[Hg] TROY BAEZ [facility] 5 14:22:13 Social History Question Answer Notes LastModified by [employer] Details LastModified Time Tobacco Smoking Status Never Smoker ERNST REYNOSOASHELY deleon [facility] 02/09/2023 14:29:42 What Was The Date Of Your Most Recent Tobacco Screening? 03/05/2025 [email or web address] Information not available 03/05/2025 Sex: Unknown Functional Status Question Answer Note LastModified by [employer] Details LastModified Time Do you use any illicit or recreational drugs? No [email or web address] Information not available 02/09/2023 What is your level of alcohol consumption? None [email or web address] Information not available 02/09/2023 Mental Status None recorded. Family History Relationship Description Onset Age of this Age Resolved Age Notes LastModified by Organization Details LastModified Time Father No current problems or disability [email or web address] Not available 03/2025 14:44:41 Mother No current problems or disability [email or web address] Not available 03/2025 14:44:41 Medical History No medical history recorded. 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 Altered mental status 41 4645717 R41.82 [id number] Health Concerns Section Related Observation LastModified by Organization Detai ls LastModified Time None Recorded Concern Status LastModified by Organization Details LastModified Time None Recorded Payers Encounter Date Sequence Insurance Name Policy Number Policy Ríos Covered Member ID Ríos Member ID Guarantor Name 06/27/2025 2 [place] Curtis Haywood [id number] Fito Haywood 06/27/2025 1 [place] [employer] Fito Haywood [id number] Fito Haywood
--- OUTSIDE RECORDS SUMMARY | 2025-07-04 14:33 | XMS_ITS | Data Portability ---
Author Organization [facility], [facility] Address [address] [facility] [address] [place] [address] Care Team Providers Care Relish Maker Name Role Phone SRINIVAS AANND Primary Care Provider Unavailabl e Assessment Encounter [...] D, 25-hydr oxy, total, serum 2024 025 [facility], [address] [facility], [place], [address], 06/28/2025 05:49:27 vitamin B12, serum 2024 025 [facility], [address] [facility], [place], [address], 06/28/2025 05:49:26 CMP, serum or plasma 2024 025 [facility], [address], [address], [place], [address], 06/27/2025 16:58:57 CBC 2024 025 [facility], [address], [address], [place], [address], 06/27/2025 15:14:36 urinaly sis, complet e 2024 025 [facility], [address], [address], [place], [address], 06/27/2025 15:56:14 culture , urine 2024 025 JEAN PIERRENutrinia [facility], [address] [place] [address], [address] [place], [address], 06/28/2025 18:32:41 vitamin D, 25-hydr oxy, total, serum 2023 024 RAMER Pik[facility], [address], [address], [place], [address], 03/29/2024 03:56:21 vitamin B12, serum 2023 024 JEAN PIERRENutrinia [facility], [address], [address], [place], [address], 03/29/2024 03:56:21 CMP, serum or plasma 2023 024 [facility], [address], [address], [place], [address], 03/28/2024 14:55:40 lipid panel, blood 2023 024 [facility], [address], [address], [place], [address], 03/28/2024 14:56:50 CBC 2023 024 [facility], [address], [address], [place], [address], 03/28/2024 12:02:47 Referral podiatr ist referra l 2024 025 [id number] [facility], [address] [place], [address], 10/30/2024 13:07:30 Procedures None recorde d. Surgeries None recorde d. Imaging None recorde d. Medication Orders midodri ne 2.5 mg tablet 2024 025 [facility] 15, [address], [place], [address], 03/05/2025 11:02:39 lactulo se 10 gram/15 mL oral solutio n 2024 025 [facility] 15, [address], [place], [address], 11/21/2024 14:42:49 hydrala zine 10 mg tablet 2024 025 [facility] 15, [address], [place], [address], 11/21/2024 14:42:46 trazodo ne 50 mg tablet 2024 025 [facility] 15, [address], [place], [address], 11/21/2024 14:42:55 carbido pa ER 50 mg-levo dopa 200 mg tablet, extende d release 2024 025 [facility] 15, [address], [place], [address], 10/13/2024 11:31:52 midodri ne 2.5 mg tablet 2024 025 [facility] 15, [address], [place], [address], 11/21/2024 14:42:52 Linzess 290 mcg capsule 2023 024 [facility] 15, [address], [place], [address], 03/28/2024 11:32:32 carbido pa ER 50 mg-levo dopa 200 mg tablet, extende d release 2023 024 [facility] 15, [address], [place], [address], 03/28/2024 11:33:50 pantopr azole 40 mg tablet, delayed release 2023 024 [facility] 15, [address], [place], [address], 03/28/2024 11:33:51 Patient TargetsNo targets recorded. Patient Instructions Encounter Date Encounter Id Patient Instructions Last Modified By Organization Details Last Modified Time 03/28/2024 [id number] high blood pressure: care instructions [id number] Not available 03/28/2024 11:32:26 learning about high blood pressure [email or web address] Not available 03/28/2024 11:32:26 06/27/2025 [id number] Call or return for questions or concerns. Not available 06/28/2025 10:47:27 Reason for Referral Manager Costing Referral for Hype rtrophy of nail Referring Physician: Srinivas Anand, Family Medicine, Encounter Date: 10/13/2024 Results Created Date Observation Date Name Description Value Unit Range Abnormal Flag Note LastModifiedBy Organization Detail LastModifiedTime 03/28/20 24 03/28/2024 CBC WBC 7.9 x10 4.5-10 .5 Not Available [facility] [address] [facility] [address], [place], [address], 03/28/2024 12:02:47 03/28/20 24 03/28/2024 CBC RBC 4.95 x10 4.30-5 .90 Not Available [facility] [address], [place], [address], 03/28/2024 12:02:47 03/28/20 24 03/28/2024 CBC HGB 15.4 g/dL 13.5-1 8.0 Not Available [facility] [address], [place], [address], 03/28/2024 12:02:47 03/28/2003/28/2024 CBC HCT 44.8 % 35.0-6 0.0 Not Available [facility] [address], [place], [address], 03/28/2024 12:02:47 03/28/20 24 03/28/2024 CBC MCV 90.5 fL 80.0-9 9.9 Not Available [facility] [address], [place], [address], 03/28/2024 12:02:47 03/28/20 24 03/28/2024 CBC MCH 31.1 pg 27.0-3 2.0 Not Available [facility] [address], [place], [address], 03/28/2024 12:02:47 03/28/20 24 03/28/2024 CBC MCHC 34.3 g/dL 32.0-3 6.0 Not Available [facility] [address], [place], [address], 03/28/2024 12:02:47 03/28/20 24 03/28/2024 CBC RDW 14.3 % 11.5-1 4.5 Not Available [facility] [address] [facility], [place], [address], 03/28/2024 12:02:47 03/28/20 24 03/28/2024 CBC plt 202.4 x10 150.0- 451.0 Not Available [facility] [address] [facility], [place], [address], 03/28/2024 12:02:47 03/28/20 24 03/28/2024 CBC lymphocytes % 24.2 % 20.0-5 0.0 Not Available [facility] [address] [facility] [address], [place], [address], 03/28/2024 12:02:47 03/28/20 24 03/28/2024 CBC granulcytes % 66.5 % 30.0-7 0.0 Not Available [facility] [address] [facility] [address], [place], [address], 03/28/2024 12:02:47 03/28/20 24 03/28/2024 CBC monocytes % 7.0 % 2.0-16 .0 Not Available [facility] [address] [facility], [place], [address], 03/28/2024 12:02:47 03/28/20 24 03/28/2024 CBC granulcytes# 5.3 x10 Not Lara ilable [facility] [address] [facility] [address], [place], [address], 03/28/2024 12:02:47 03/28/20 24 03/28/2024 CBC lymphocytes # 1.9 x10 Not Available [facility] [address] [facility] [address], [place], [address], 03/28/2024 12:02:47 03/28/20 24 03/28/2024 CBC monocytes # 0.6 x10 Not [facility] [address] [facility] [facility] [address], [place], [address], 03/28/2024 12:02:47 03/28/20 24 03/28/2024 CMP (MALE ) glucose 93.0 mg/dL 60.0-9 9.0 Not Available [facility] [address] [facility] [facility], [place], [address], 03/28/2024 14:55:40 03/28/20 24 03/28/2024 CMP (MALE ) BUN (blood urea nitrogen) 20.0 mg/dL 10.0-2 6.0 Not Available [facility] [address] [facility] [facility], [place], [address], 03/28/2024 14:55:40 03/28/20 24 03/28/2024 CMP (MALE ) creatinine (serum) 0.9 mg/dL 0.4-1. 5 Not Available [facility] [address] [facility], [place], [address], 03/28/2024 14:55:40 03/28/20 24 03/28/2024 CMP (MALE ) BUN/creatini ne ratio 22.99 ratio Not Available [facility] [address] [facility] [facility], [place], [address], 03/28/2024 14:55:40 03/28/20 24 03/28/2024 CMP (MALE ) eGFR calculated 91.7 Not Available [facility] [address] [facility] [facility] [address], [place], [address], 03/28/2024 14:55:40 03/28/20 24 03/28/2024 CMP (MALE ) total protein 7.9 g/dL 6.0-8. 5 Not Available [facility] [address] [facility] [address], [place], [address], 03/28/2024 14:55:40 03/28/20 24 03/28/2024 CMP (MALE ) total bilirubin 1.3 mg/dL 0.2-1. 3 Not Available [facility] [address] [facility], [place], [address], 03/28/2024 14:55:40 03/28/20 24 03/28/2024 CMP (MALE ) albumin 4.3 g/dL 3.5-5. 5 Not Available [facility] [address] [facility] [address], [place], [address], 03/28/2024 14:55:40 03/28/20 24 03/28/2024 CMP (MALE ) globulin 3.6 calc Not Available [facility] [address] [facility] [address], [place], [address], 03/28/2024 14:55:40 03/28/20 24 03/28/2024 CMP (MALE ) AST (SGOT) 20.0 U/L 0.0-46 .0 Not Available [facility] [address] [facility] [address], [place], [address], 03/28/2024 14:55:40 03/28/20 24 03/28/2024 CMP (MALE ) altv (SGPT) 17.0 U/L 13.0-6 9.0 normal Not Available [facility] [address] [facility] [address], [place], [address], 03/28/2024 14:55:40 03/28/20 24 03/28/2024 CMP (MALE ) A/G ratio 1.2 ratio Not Available [facility] [address] [facility] [address], [place], [address], 03/28/2024 14:55:40 03/28/20 24 03/28/2024 CMP (MALE ) ALP phos 54.0 U/L 30.0-1 40.0 normal Not Available [facility] [address] [facility] [address], [place], [address], 03/28/2024 14:55:40 03/28/20 24 03/28/2024 CMP (MALE ) calcium 8.9 mg/dL 8.4-10 .5 Not Available [facility] [address] [facility], [place], [address], 03/28/2024 14:55:40 03/28/20 24 03/28/2024 CMP (MALE ) sodium 138.0 mmol/ L 136.0- 145.0 Not Available [facility] [address] [facility] [address], [place], [address], 03/28/2024 14:55:40 03/28/20 24 03/28/2024 CMP (MALE ) potassium 3.9 mmol/ L 3.5-5. 1 Not Available [facility] [address] [facility] [address], [place], [address], 03/28/2024 14:55:40 03/28/20 24 03/28/2024 CMP (MALE ) chloride 106.0 mmol/ L 98.0-1 10.0 normal Not Available [facility] [address] [facility], [place], [address], 03/28/2024 14:55:40 03/28/20 24 03/28/2024 CMP (MALE ) C02 27.0 mmol/ L 22.0-3 1.0 Not Available [facility] [address] [facility], [place], [address], 03/28/2024 14:55:40 03/28/20 24 03/28/2024 CMP (MALE ) anion gap 5.0 calc Not Available [facility] [address] [facility], [place], [address], 03/28/2024 14:55:40 03/28/20 24 03/28/2024 CMP (MALE ) osmolality 287.3 calc Not Available [facility] [address] [facility] [address], [place], [address], 03/28/2024 14:55:40 03/28/20 24 03/28/2024 LIPID PROFI LE (MALE ) cholesterol 184.0 mg/dL 0.0-20 0.0 Not Available [facility] [address] [facility] [address], [place], [address], 03/28/2024 14:56:50 03/28/20 24 03/28/2024 LIPID PROFI LE (MALE ) trig 73.0 mg/dL 0.0-15 0.0 Not Available [facility] [address] [facility] [address], [place], [address], 03/28/2024 14:56:50 03/28/20 24 03/28/2024 LIPID PROFI LE (MALE ) HDL - direct 54.0 mg/dL >40.0 Not Available [facility] [address] [facility] [address], [place], [address], 03/28/2024 14:56:50 03/28/20 24 03/28/2024 LIPID PROFI LE (MALE ) VLDL - direct 14.6 mg/dL Not Available [facility] [address] [facility] [address], [place], [address], 03/28/2024 14:56:50 03/28/20 24 03/28/2024 LIPID PROFI LE (MALE ) LDL - direct 115.4 mg/dL 0.0-13 0.0 Not Available [facility] [address] [facility] [address], [place], [address], 03/28/2024 14:56:50 03/28/20 24 03/29/2024 VITAM IN B12 vitamin B12 354 pg/mL 200-11 00 normal Pleas e Note: [...] pg/mL will have sympt oms. Not Available [facility] [place] [address] [place], [address], 03/29/2024 03:56:21 03/28/20 24 03/29/2024 VITAM IN D,25- OH,TO KHALIF,I A vitamin D,25-oh,tota l,ia 28 NG/mL 30-100 low Vitam in D Statu s 25-OH Vitam [...] /MS is recom song d: order code [id number] (radha ents >2yrs ). See Note 1 Note 1 For addit ional infor marleny smith refer to http: //waleska tony.Valerio stDia gnost ics.c om/fa q/FAQ 199 (This link is being provi ded for infor shaun villanueva/ bismark sam purpo ses only. ) Not Available [facility] [address] [place], [address], 03/29/2024 03:56:21 06/27/20 25 06/27/2025 CBC WBC 8.8 x10 4.5-10 .5 Not Available [facility] [address] [facility] [address], [place], [address], 06/27/2025 15:14:36 06/27/20 25 06/27/2025 CBC RBC 4.96 x10 4.30-5 .90 Not Available [facility] [address] [facility] [address], [place], [address], 06/27/2025 15:14:36 06/27/20 25 06/27/2025 CBC HGB 14.2 g/dL 13.5-1 8.0 Not Available [facility] [address] [facility] [address], [place], [address], 06/27/2025 15:14:36 06/27/20 25 06/27/2025 CBC HCT 43.6 % 35.0-6 0.0 Not Available [facility] [address] [facility] [facility], [place], [address], 06/27/2025 15:14:36 06/27/20 25 06/27/2025 CBC MCV 87.9 fL 80.0-9 9.9 Not Available [facility] [address] [facility] [facility] [facility], [place], [address], 06/27/2025 15:14:36 06/27/20 25 06/27/2025 CBC MCH 28.7 pg 27.0-3 2.0 Not Available [facility] [address] [facility] [facility] [facility], [place], [address], 06/27/2025 15:14:36 06/27/20 25 06/27/2025 CBC MCHC 32.6 g/dL 32.0-3 6.0 Not Available [facility] [address] [facility] [address], [place], [address], 06/27/2025 15:14:36 06/27/20 25 06/27/2025 CBC RDW 15.8 % 11.5-1 4.5 high Not Available [facility] [address] [facility] [address], [place], [address], 06/27/2025 15:14:36 06/27/20 25 06/27/2025 CBC plt 367.3 x10 150.0- 451.0 Not Available [facility] [address] [facility] [address], [place], [address], 06/27/2025 15:14:36 06/27/20 25 06/27/2025 CBC lymphocytes % 13.5 % 20.0-5 0.0 low Not Available [facility] [address] [facility] [address], [place], [address], 06/27/2025 15:14:36 06/27/20 25 06/27/2025 CBC granulcytes % 82.9 % 30.0-7 0.0 high Not Available [facility] [address] [facility] [address], [place], [address], 06/27/2025 15:14:36 06/27/20 25 06/27/2025 CBC monocytes % 3.0 % 2.0-16 .0 Not Available [facility] [address] [facility] [address], [place], [address], 06/27/2025 15:14:36 06/27/20 25 06/27/2025 CBC granulcytes# 7.3 x10 Not Lara ilable [facility] [address] [facility] [address], [place], [address], 06/27/2025 15:14:36 06/27/20 25 06/27/2025 CBC lymphocytes # 1.2 x10 Not Available [facility] [address] [facility] [address], [place], [address], 06/27/2025 15:14:36 06/27/20 25 06/27/2025 CBC monocytes # 0.3 x10 Not Avai lable [facility] [address] [facility], [place], [address], 06/27/2025 15:14:36 06/27/2006/27/2025 URINA LYSIS WITH MICRO color OFELIA Not Available [facility] [address] [facility], [place], [address], 06/27/2025 15:56:14 06/27/2006/27/2025 URINA LYSIS WITH MICRO clarity CLEAR Not Available [facility] [address] [facility], [place], [address], 06/27/2025 15:56:14 06/27/2006/27/2025 URINA LYSIS WITH MICRO glu TRACE high Not Available [facility] [address] [facility], [place], [address], 06/27/2025 15:56:14 06/27/20 25 06/27/2025 URINA LYSIS WITH MICRO bili 1+ high Not Available [facility] [address] [facility], [place], [address], 06/27/2025 15:56:14 06/27/20 25 06/27/2025 URINA LYSIS WITH MICRO ket TRACE high Not Available [facility] [address] [facility], [place], [address], 06/27/2025 15:56:14 06/27/20 25 06/27/2025 URINA LYSIS WITH MICRO S.g >1.030 1.005- 1.025 high > Not Available [facility] [address] [facility], [place], [address], 06/27/2025 15:56:14 06/27/20 25 06/27/2025 URINA LYSIS WITH MICRO pH 5.5 5.0-7. 0 Not Available [facility] [address], [place], [address], 06/27/2025 15:56:14 06/27/20 25 06/27/2025 URINA LYSIS WITH MICRO pro 1+ high Not Available [facility] [address] [facility], [place], [address], 06/27/2025 15:56:14 06/27/20 25 06/27/2025 URINA LYSIS WITH MICRO uro 4.0 E.U./D L Not Available [facility] [address], [place], [address], 06/27/2025 15:56:14 06/27/20 25 06/27/2025 URINA LYSIS WITH MICRO nit NEGATI VE Not Available [facility] [address] [facility], [place], [address], 06/27/2025 15:56:14 06/27/20 25 06/27/2025 URINA LYSIS WITH MICRO blo NEGATI VE Not Available [facility] [address] [facility], [place], [address], 06/27/2025 15:56:14 06/27/20 25 06/27/2025 URINA LYSIS WITH MICRO rafael NEGATI VE Not Available [facility] [address] [facility], [place], [address], 06/27/2025 15:56:14 06/27/20 25 06/27/2025 URINA LYSIS WITH MICRO WBC 1-3 abnormal Not Available [facility] [address] [facility], [place], [address], 06/27/2025 15:56:14 06/27/20 25 06/27/2025 URINA LYSIS WITH MICRO RBC 1-2 abnormal Not Available [facility] [address], [place], [address], 06/27/2025 15:56:14 06/27/2006/27/2025 URINA LYSIS WITH MICRO epi cells NEGATI VE Not Available [facility] [address], [place], [address], 06/27/2025 15:56:14 06/27/20 25 06/27/2025 URINA LYSIS WITH MICRO bacteria 3+ MUCUS THREAD S abnormal Not Available [facility] [address] [facility], [place], [address], 06/27/2025 15:56:14 06/27/2006/27/2025 URINA LYSIS WITH MICRO other NEGATI VE Not Available [facility] [address] [facility], [place], [address], 06/27/2025 15:56:14 06/27/20 25 06/27/2025 CMP (MALE ) glucose 97.0 mg/dL 60.0-9 9.0 Not Available [facility] [address] [facility], [place], [address], 06/27/2025 16:58:57 06/27/20 25 06/27/2025 CMP (MALE ) BUN (blood urea nitrogen) 22.0 mg/dL 10.0-2 6.0 Not Available [facility] [address] [facility], [place], [address], 06/27/2025 16:58:57 06/27/20 25 06/27/2025 CMP (MALE ) creatinine (serum) 0.7 mg/dL 0.4-1. 5 Not Available [facility] [address] [facility], [place], [address], 06/27/2025 16:58:57 06/27/2006/27/2025 CMP (MALE ) BUN/creatini ne ratio 29.73 ratio Not Available [facility] [address] [facility], [place], [address], 06/27/2025 16:58:57 06/27/20 25 06/27/2025 CMP (MALE ) eGFR calculated 110.2 Not Available [facility] [address] [facility] [address], [place], [address], 06/27/2025 16:58:57 06/27/20 25 06/27/2025 CMP (MALE ) total protein 8.9 g/dL 6.0-8. 5 high Not Available [facility] [address] [facility] [address], [place], [address], 06/27/2025 16:58:57 06/27/20 25 06/27/2025 CMP (MALE ) total bilirubin 1.3 mg/dL 0.2-1. 3 Not Available [facility] [address] [facility] [address], [place], [address], 06/27/2025 16:58:57 06/27/20 25 06/27/2025 CMP (MALE ) albumin 3.6 g/dL 3.5-5. 5 Not Available [facility] [address] [facility] [address], [place], [address], 06/27/2025 16:58:57 06/27/20 25 06/27/2025 CMP (MALE ) globulin 5.[address] [facility] [address] [facility] [address], [place], [address], 06/27/2025 16:58:57 06/27/20 25 06/27/2025 CMP (MALE ) AST (SGOT) 21.0 U/L 0.0-46 .0 Not Available [facility] [address] [facility], [place], [address], 06/27/2025 16:58:57 06/27/20 25 06/27/2025 CMP (MALE ) altv (SGPT) 17.0 U/L 13.0-6 9.0 normal Not Available [facility] [address] [facility] [address], [place], [address], 06/27/2025 16:58:57 06/27/20 25 06/27/2025 CMP (MALE ) A/G ratio 0.7 ratio Not Available [facility] [address] [facility] [address], [place], [address], 06/27/2025 16:58:57 06/27/20 25 06/27/2025 CMP (MALE ) ALP phos 68.0 U/L 30.0-1 40.0 normal Not Available [facility] [address] [facility], [place], [address], 06/27/2025 16:58:57 06/27/20 25 06/27/2025 CMP (MALE ) calcium 8.9 mg/dL 8.4-10 .5 Not Available [facility] [address] [facility], [place], [address], 06/27/2025 16:58:57 06/27/20 25 06/27/2025 CMP (MALE ) sodium 140.0 mmol/ L 136.0- 145.0 Not Available [facility] [address] [facility], [place], [address], 06/27/2025 16:58:57 06/27/20 25 06/27/2025 CMP (MALE ) potassium 4.8 mmol/ L 3.5-5. 1 Not Available [facility] [address] [facility] [address], [place], [address], 06/27/2025 16:58:57 06/27/20 25 06/27/2025 CMP (MALE ) chloride 106.0 mmol/ L 98.0-1 10.0 normal Not Available [facility] [address] [facility], [place], [address], 06/27/2025 16:58:57 06/27/20 25 06/27/2025 CMP (MALE ) C02 23.0 mmol/ L 22.0-3 1.0 Not Available [facility] [address] [facility], [place], [address], 06/27/2025 16:58:57 06/27/20 25 06/27/2025 CMP (MALE ) anion gap 11.0 calc Not Available [facility] [address] [facility] [address], [place], [address], 06/27/2025 16:58:57 06/27/20 25 06/27/2025 CMP (MALE ) osmolality 292.2 calc Not Available [facility] [address] [facility] [address], [place], [address], 06/27/2025 16:58:57 06/27/20 25 06/28/2025 VITAM IN [...] pg/mL will have sympt oms. Not Available [facility] [address], [place], [address], 06/28/2025 05:49:26 06/27/20 25 06/28/2025 VITAM IN D,25- OH,TO KHALIF,I A vitamin [...] /MS is recom song d: order code 14526 (radha ents >2yrs ). See Note 1 Note 1 For addit ional infor marleny smith refer to http: //[facility] jose juan [email or web address].Valerio stDia gnost ics.c om/fa q/FAQ 199 (This link is being provi ded for infor shaun villanueva/ educnikki sam purpo ses only. ) Not Available [facility] [address] [place], [address], 06/28/2025 05:49:26 06/27/20 25 06/28/2025 CULTU RE, URINE , ROUTI NE culture, urine, routine SEE NOTE CULTU RE, URINE , ROUTI NE Micro Numbe r: [id number] Test Statu s: Final Speci men [...] Cultu re Trans port Tube. Not Available [facility] [address] [place], [address], 06/28/2025 18:32:41 Result Notes None recorded. Problems Name Problem SNOMED Code Status Onset Date Resolution Date Notes Provider Name and Address Organization Details Recorded Time Malignan t neoplasm of prostate 127323678 Completed 202004/24/2021 [facility] - Status is Inactive ; Recorded 04/24/20 10:59AM by Flor Bhakta PA-C, Sri on/Belen dum; Promoted ; acuity set as *; Not Available [facility] 3 03:10:22 Gastroes ophageal reflux disease 442924496 Active 2021 GERD; 04/10/20 11:21AM by Ernst Reynoso, Office Visit; Promoted ; acuity set as *; GERD (GASTROE SOPHAGEA L REFLUX DISEASE) ; Recorded 04/10/20 11:21AM by Ernst Reynoso, Office Visit; Promoted ; acuity set as *; ERNST deleon [facility] 5 16:18:38 Benign essentia l hyperten milton 0923520 Active 2021 Hyperten milton; 04/10/20 11:21AM by Ernst Reynoso, Office Visit; Promoted ; acuity set as *; ERNST deleon [facility] 5 16:18:25 Anxiety state 043661083 Active 2021 ANXIETY AND DEPRESSI ON; Recorded 04/10/20 22 11:21AM by Ernst Reynoso, Office Visit; Promoted ; acuity set as *; ERNST deleon [facility] 5 16:18:20 Backache 427327275 Active 2021 Back pain; 04/10/20 22 11:21AM by Ernst Reynoso, Office Visit; Promoted ; acuity set as *; ERNST deleon [facility] 5 16:20:21 Hyperlip idemia 61177320 Active 2022 Hyperlip idemia; 04/10/20 22 11:21AM by Ernst Reynoso, Office Visit; Promoted ; acuity set as *; ; Start Date : 04/10/20 HYPER LIPIDEMI A; Recorded 02/21/20 23 2:05PM by Srinivas Anand MD, Office Visit; Promoted ; acuity set as *; ERNST VELASQUEZRIS adrienne [facility] 5 16:18:43 Hyperten sive disorder 87895218 Active 2022 ESSENTIA L HYPERTEN MILTON; Recorded 10/06/19 2:05PM by Srinivas Anand MD, Office Visit; Promoted ; acuity set as *; ERNST VELASQUEZRIS adrienne [facility] 5 16:18:47 Chronic constipa tion 926134560 Active 2022 CONSTIPA TION, CHRONIC; Recorded 10/06/19 2:05PM by Srinivas Aannd MD, Office Visit; Promoted ; acuity set as *; ERNST deleon [facility] 5 16:18:28 Parkinso n's disease 55988502 Active 2022 ERNST REYNOSO null, [facility] 5 16:19:04 Orthosta tic hypotens ion 62751259 Active 2022 ERNST deleon, [facility] 5 16:19:43 [facility] cough 21652678 [facility] 16:18:32 Right inguinal hernia 692943845 Active 2023 ERNST REYNOSO null, [facility] 5 16:20:01 Actinic keratosi s 973721454 Active 2023 [facility] 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 5 16:20:30 Insomnia 470712140 Active 2024 ERNST deleon [facility] 5 16:18:56 Mixed urinary incontin ence 724213408 Active 2024 ERNST deleon [facility] 5 16:19:37 Low blood pressure 87337250 Active 2024 Srinivas Anand MD [address] [place] [address], [address] [place] [address] , [facility] 5 10:54:10 Flexion contract ure 230075329 Active 2024 Srinivas Anand MD [address] [place] [address], [address] [place] [address] , [facility] 5 10:54:25 Unintent ional weight loss 579521389 Active 2024 Srinivas Anand MD [address] [place] [address], [address] [place] [address] , [facility] 5 10:56:22 Problem Notes None recorded. Medical Equipment None Reported. Allergies No known drug allergies Medications Name Sig Start Date Stop Date Status Note LastModified by Organization Details LastModified Time hydralazi ne 10 mg tablet TAKE 1 TABLET BY MOUTH TWICE DAILY NEEDED 11/21 completed Not Available Not Available Not Available Colace 100 mg capsule two times daily 2019 active Recorded 04/24/20 7:44AM by Shayla No LPN, Office Visit; [...] 08/05/20 22 2:06PM by Ernst Reynoso (Authori luis alberto through Srinivas Anand MD), Refill Request; Refill Quantity : 30; Capsule; Not Available Not Available Not Available Vitals Date Recorded Body height Oxygen saturation Oxygen saturation in Arterial blood by Pulse oximetry Heart rate Systolic And Diastolic Provider Name and Address Organization Details Last Updated DateTime 173.99 cm 96 % 96 % 83 /min 140/100 mm[Hg] [facility] 10:31:03 Date Recorded Body height Body mass index (BMI) Body weight Heart rate Provider Name and Address Organization Details Last Updated DateTime 11/21/2024 173.99 cm 18 kg/m2 57945.08 g 70 /min ANIKA [facility] 11/21/2024 14:42:26 Date Recorded Body height Body mass index (BMI) Body weight Provider Name and Address Organization Details Last Updated DateTime 11/21/2024 173.99 cm 17.9 kg/m2 87051.29 g ARMANDO GAMBINO [facility] 11/21/2024 14:32:04 Date Recorded Body height Body mass index (BMI) Body weight Heart rate Systolic And Diastolic Provider Name and Address Organization Details Last Updated DateTime 03/05/2025 173.99 cm 16.8 kg/m2 65437.35 g 64 /min 82/61 mm[Hg] [facility] 10:40:39 Date Recorded Body height Body mass index (BMI) Body weight Oxygen saturation Oxygen saturation in Arterial blood by Pulse oximetry Heart rate Systolic And Diastolic Provider Name and Address Organization Details Last Updated DateTime 173.99 cm 20.4 kg/m2 07418.5 6 g 93 % 93 % 83 /min 100/72 mm[Hg] [facility] 4 11:06:26 Date Recorded Body mass index (BMI) Body weight Provider Name and Address Organization Details Last Updated DateTime 06/27/2025 13.5 kg/m2 97861.31 g STEPHANIE FAUSTIN, [facility] [address] [place], [phone], [facility] 06/27/2025 14:43:30 Date Recorded Body height Oxygen saturation Oxygen saturation in Arterial blood by Pulse oximetry Heart rate Respiratory rate Systolic And Diastolic Provider Name and Address Organization Details Last Updated DateTime 173.99 cm 92 % 92 % 60 /min 18 /min 94/60 mm[Hg] TROY BAEZ [facility] 14:22:13 Social History Question Answer Notes LastModified by [employer] Details LastModified Time Tobacco Smoking Status Never Smoker ERNST REYNOSOASHELY deleon [facility] 02/09/2023 14:29:42 What Was The Date Of Your Most Recent Tobacco Screening? 03/05/2025 [email or web address] Information not available 03/05/2025 Sex: Unknown Functional Status Question Answer Note LastModified by [employer] Details LastModified Time Do you use any illicit or recreational drugs? No [email or web address] Information not available 02/09/2023 What is your level of alcohol consumption? None [email or web address] Information not available 02/09/2023 Mental Status None [...] ICD10 Code Diagnosis IMO Codes Diagnosis Note [id number] Srinivas Anand MD [facility] ([facility]) [address] [place] [address] [phone] 02/09/2023 14:19:28 02/09/2023 15:20:34 Parkinson's disease 59547164 G20 Orthostati c hypotension 16165402 I95.1 [id number] Srinivas Anand MD [facility] ([facility]) [address] [place] [address] [phone] 5 06/14/2023 14:05:08 06/14/2023 15:10:25 Benign essential hypertension 9868452 I10 Parkinson's disease 4904 9000 G20.A2 stable Indirect r ight inguinal hernia 2344695603 4130276 K40.90 worsening. [id number] Srinivas Anand MD [facility] ([facility]) [address] [place] [address] [phone] 09/15/2023 14:36:11 09/15/2023 16:48:10 Benign essential hypertension 1833707 I10 Hypertensive disorder 38 954632 I10 Indirect r ight inguinal hernia 4484490444 9516564 K40.90 stable Parkinson's disease 4904 9000 G20.A2 stable Chronic constipation 236 014952 K59.09 Irritable bowel syndrome 63224144 K58.9 Chronic cough 16534751 R 05.3 Gastroesop hageal reflux disease 643408395 K21.9 [id number] Srinivas Anand MD [facility] ([facility]) [address] [place] [address] [phone] 5 12/13/2023 11:08:23 12/13/2023 12:23:23 Benign essential hypertension 7810265 I10 Orthostati c hypotension 22464386 I95.1 stable. Hyperlipidemia 97393026 E78.5 Right inguinal hernia 23 2842815 K40.90 enlarging with some increasing pain He has seen a surgeon for this last month who decided on watchful waiting. If continues to worsen when we see him back may refer again to the general surgeon. Gastroesop hageal reflux disease 781980734 K21.9 Constipation 22756228 K5 9.00 Parkinson's disease 4904 9000 G20.A2 stable [id number] PAULA OILVAREZ [facility] ([facility]) [address] [place] [address] [phone] 12/27/2023 12:14:42 12/27/2023 12:58:57 Lesion of skin of face 5824293777 06 L98.9 Pt has appt with PCP this week for possible lesion removal.No signs of infection to the skin today. [id number] Srinivas Anand MD [facility] ([facility]) [address] [place] [address] [phone] 5 12/28/2023 14:34:54 12/28/2023 17:18:13 Actinic keratosis 128628036 L57.0 right cheek area. [id number] Srinivas Anand MD [facility] ([facility]) [address] [place] [address] [phone] 03/28/2024 10:35:24 03/28/2024 12:30:25 Parkinson's disease 77243005 G20.A2 stable Right inguinal hernia 23 2905366 K40.90 stable Constipation 24184604 K5 9.00 stable. Benign ess ential hypertension 8561086 I10 Irritable bowel syndrome 93187990 K58.9 Gastroesop hageal reflux disease 309836122 K21.9 [id number] Srinivas Anand MD [facility] ([facility]) [address] [place] [address] [phone] 10/13/2024 10:12:17 10/16/2024 13:56:19 Constipation 75389601 K59.00 worsening again. Parkinson's disease 4904 9000 G20.A2 a little worse Muscular hypertonicity 28737199 R25.2 palm protector device for his left hand. Hand written prescripti on written for HOME. Insomnia 426403755 G47.0 0 Orthostati c hypotension 04068635 I95.1 stable. 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 He would benefit from adult diapers. [id number] Srinivas Anand MD [facility] ([facility]) [address] [place] [address] [phone] 5 11/21/2024 14:34:32 11/22/2024 14:08:44 Hospital inpatient stay within past 30 days 4829701436 106 Z76.89 Benign ess ential hypertension 3085067 I10 Chronic constipation 236 762801 K59.09 Hypertensive disorder 38 470318 I10 Mixed urin marcie incontinence 132645950 N39.46 He has mixed incontinen ce of urine from lack of sensing that he needs to go and inability to get to restroom quickly due to his advanced parkinsons as well as dementia. He would benefit from adult diapers. We have tried kegal or other exercises and he does not fully understand how to use these. Will request diapers thru HOME. [id number] Srinivas Anand MD [facility] ([facility]) [address] [place] [address] [phone] 03/05/2025 10:19:17 03/05/2025 11:12:16 Parkinson's disease 79191784 G20.A2 a little worse Hyperlipidemia 67388120 E78.5 Mixed urin marcie incontinence 183794611 N39.46 He has mixed incontinen ce of urine from lack of sensing that he needs to go and inability to get to restroom quickly due to his advanced parkinsons as well as dementia. He would benefit from adult diapers. We have tried kegal or other exercises and he does not fully understand how to use these. Will request diapers thru HOME. Low blood pressure 54775 003 I95.9 12936755 Flexion contracture 3855 05191 M24.50 0114036 mainly upper extremetie s with worse in left hand Unintentio nal weight loss 461599280 R63.4 828484 Orthostati c hypotension 71193559 I95.1 stable. [id number] PAULA SONG [facility] ([facility]) [address] [place] [address] [phone] 5 06/27/2025 13:59:06 06/27/2025 14:45:44 Asthenia 60826833 R53.1 11045 Unintentio nal weight loss 704619693 R63.4 709224 Tremor 10886882 R25.1 90598 Frail elderly 223712144 R54 84801352 Not able to ambulate without assistance , in wheelchair today. Altered mental status 41 7122814 R41.82 [id number] Health Concerns Section Related Observation LastModified by Organization Detai ls LastModified Time None Recorded Concern Status LastModified by Organization Details LastModified Time None Recorded Advance Directives Directive None Recorded Payers Insurance Date Sequence Insurance Name Policy Number Policy Ríos Covered Member ID Ríos Member ID Guarantor Name 06/27/2025 2 [place] Curtis Haywood [id number] Fito Haywood 06/27/2025 [place] [facility] (INSTITUTION [place]) Curtis Jallohmov [id number] Fito Mota Gerasimov 06/27/2025 1 [facility] (MEDICARE REPLACEMENT/ ADVANTAGE - PPO) Fito Arenasasimov [id number] Fito Mota Gerasimov 06/27/2025 1 [facility] (MEDICARE REPLACEMENT/ ADVANTAGE - HMO) [employer] Fito Arenasasimov [id number] Fito Mota Gerasimov Notes Date Note Type Note Provider Name and Address Organization Details Recorded Time 4 text/html HyperlipidemiaReported by PatientHPIFor duration, patient reportschronic. For risk factors, patient reportshypertension. For control, patient reportsusually well controlled. For adherence to treatment plan, patient reportstakes medications as prescribed. Hypertension IM/FMReported by PatientHPIFor quality, patient reportshere for check-up. For severity, patient reportsmild(at times it can be high and at times it can be low.). For alleviating factors, patient reportsmedication. For associated symptoms, patient reportsno shortness of breathandno chest pain. Srinivas Anand MD [address] [place] [address], [phone], [facility] 03/28/2024 11:38:24 5 text/html Hypertension IM/FMReported by PatientHPIFor quality, patient reportshere for check-up. For severity, (blood pressure is all over the place, either high or low.).Very unsteady with walking and has help everywhere he goes. HyperlipidemiaReported by PatientHPIFor duration, patient reportschronic. For risk factors, patient reportshypertension. For control, patient reportsusually well controlled. For adherence to treatment plan, patient reportstakes medications as prescribed. Still having constipation problems.Has been having some dizziness that has been on going. Srinivas Anand MD [address] [place] [address], [phone], [facility] 10/13/2024 13:39:29 5 text/html He was also treated for pneumonia and aspiration. He also was diagnosed with multiple compression fractures. Srinivas Anand MD [address] [place] [address], [phone], [facility] Teresa Jacobson 11/21/2024 15:11:11 5 text/html HyperlipidemiaReported by Patient Srinivas Anand MD [address] [place] [address], [phone], [facility] Teresa Jacobson 03/05/2025 11:02:59
[2025-07-04 15:33] LABS: Lactic Acid level (Lactate) 2.1 mmol/L (0.5-2.2)
--- NOTE | 2025-07-04 19:15 | PM.HP ---
Providers/Chief Complaint Admitting Physician: Campbell Springer MD Primary Care Provider: Wilman Anand MD Chief Complaint: weakness History of Present Illness Fito Haywood is a 75 year old male with prior medical history of HTN, HLD, GERD, LUTS, palpitations, non-sustained V-tach, Parkinson's, fractures, fall, and mitral valve regurgitation presenting with complaints of generalized weakness. Family reports progressive weakness and altered mentation that has become progressively worse in the last two weeks, more pronounced in the last 2-3 days. This morning, patient was able to eat some of an egg and yogurt. This afternoon, symptoms persisted and he he was found unresponsive and hypoxic. His blood pressures were running 70's systolic. Patient was transported via EMS to [facility] ED for assessment. Will admit to Hospitalist Service for further evaluation and treatment. Son, Reggie primary source of history. Family primary language is Nigerien. In the ED, BP 125/83, HR, 90, RR, T 98.3, O2 96% on NC. WBC 6.95, HGB 10.60, PLT 302, PT 15.60, INR 1.15. pH 7.52, pCO2 33.5, pO2 59.6, HCO3 27. Na 145, K+ 3.4. Glucose 130. Creatinine 0.6, BUN 32. Lactic 2.5. AST/ALT WNL. Urinalysis; [place], 1+ bilirubin, trace leukocytesm urine protein 1+. Head CT; no acute intracranial abnormality. CXR; finding are most suggestive of bilateral pneumonitis, atelectasis, and pleural effusion, patient had somewhat similar finding demonstrated on CT chest from 11/09/24. Review of Systems General: Reports: ROS unobtainable due to mental status Medications/Allergies Home Medications ?Medication ?Instructions ?Recorded ?Confirmed ?Last Taken ?Type multivitamin 1 tab PO DAILY 12/18/21 07/04/25 Unknown History Cuff and Collar #1 ea 06/06/24 07/04/25 Unknown Rx carbidopa ER 50 mg-levodopa 200 mg 2 tab PO BID 11/09/24 07/04/25 Unknown History tablet,extended release tamsulosin 0.4 mg capsule 0.4 mg PO DAILY #30 caps 11/13/24 07/04/25 Unknown Rx hydralazine 10 mg tablet 10 mg PO BID PRN bp 07/04/25 07/04/25 Unknown History linaclotide 290 mcg capsule 290 mcg PO DAILY 07/04/25 07/04/25 Unknown History (Linzess) midodrine 2.5 mg tablet 2.5 mg PO TID 07/04/25 07/04/25 Unknown History pantoprazole 40 mg tablet,delayed 40 mg PO DAILY 07/04/25 07/04/25 Unknown History release Allergies Allergy/AdvReac Type Severity Reaction Status Date / Time No Known Allergies Allergy Verified 06/20/24 15:17 PFSH Acute PFSH: Medical History Hx of gastroesophageal reflux (GERD) History of back pain Hx of hyperlipidemia Elevated PSA Lower urinary tract symptoms (LUTS) Mitral valve regurgitation Palpitation Hx of primary hypertension Surgical History History of back surgery Family History Other CAD (coronary artery disease) Diabetes Denies family history of Cancer Hypertension Social History Smoking and tobacco/nicotine status: unknown if used tobacco/nicotine Vitals/I&O/Wt Last Vital Signs Temp 98.6 F 07/04/25 19:23 Pulse 103 H 07/04/25 19:23 Resp 16 07/04/25 19:23 BP 95/66 07/04/25 19:23 Pulse Ox 94 07/04/25 21:25 O2 Del Method Nasal Cannula 07/04/25 21:25 O2 Flow Rate 4 07/04/25 21:25 07/04/25 07/04/25 07/05/25 14:59 22:59 06:59 Intake Total 1746.85 / 1746.85 0 / 1746.85 Output Total 200 / 200 Balance 1746.85 / 1746.85 -200 / 1546.85 Weight last 48 hrs Weight 46.357 kg Weight 49.895 kg Physical Exam Narrative: General: cachectic, ill appearing HEENT: Dry mucus membranes CVS; RRR Chest; Decreased breath sounds Abd: Soft, nontender Ext; No edema Urinary Catheter Management: Ramos: Cath Placed During This Visit: yes Reason for Continuing Indwelling Catheter: Accurate Measurement of Urinary Output in Critically Ill Patients Urinary Catheter Date of Insertion: 07/04/25 Urinary Catheter Time of Insertion: 12:26 Data 07/04/25 11:41 07/04/25 11:41 Micro: Microbiology 07/04/25 11:41 Blood Culture - Preliminary Blood SPECIMEN COLLECTED 07/04/25 11:50 Blood Culture - Preliminary Blood SPECIMEN COLLECTED A&P Assessment and plan 1. Pneumonia: ph 7.52, pCO2 33.5, pO2 59.6, HCO3 27 Lactic 2.5 Blood cultures pending EKG; normal sinus rhythm CXR; findings suggestive of bilateral pneumonitis, atelectasis, and pleural effusion - see full results Pulse oximetry, supplemental o2 IVF, Abx started in ED, continued RT 2. Cachexia: Patient was seen last week at PCP, Dr. Singh office - patient son reports weight was < 90 lbs at that time Weights I&O Civil Geotechnical Engineer consult NPO until METAL ROOM DENTAL TECHNICIAN consult to determine safest diet 3. Altered mental status: Recurrent Head CT; no acute intracranial abnormality Urinalysis; orange, 1+ bili, trace leukocytes, 1+ protien Fall risk precautions Tele 4. At high risk for falls: History of multiple falls, fractures, and back injuries Bedrest Needs PT/OT assessment before discharge Fall precautions PDMP PDMP Reviewed: Not Reviewed Attestations Medical Necessity Statement*: Initial hospitalization expected to cross two midnights s/t documented bilateral pneumonia, atelectasis, and pleural effusion. Patient is cahexic and has altered mentation. Diagnoses Pneumonia J18.9 Cachexia R64 Altered mental status R41.82 At high risk for falls Z91.81 Time Spent (min) 70
[2025-07-04] MEDS: pantoprazole 40 mg SDV IVP (20:49)
[2025-07-05] VITALS (8 sets, daily range): BP systolic 85–147; BP diastolic 58–77; PULSE 88–102; RESP 16–21; TEMP 36.6–37.1; O2SAT 90–94
[2025-07-05 05:39] LABS: Hematocrit 28.4 % (37-53); Hemoglobin 8.90 g/dL (11.27-16.99); Mean Corpuscular HGB Conc 31.3 g/dL (30-55); Mean Corpuscular Hemoglobin 27.4 pg (27-33); Mean Corpuscular Volume 87.4 fl (82-101); Nucleated Red Blood Cells % 0 %; Platelet Count 293 10^3/cmm (157-399); Red Blood Count 3.25 10^6/uL (3.85-5.65); White Blood Count 8.52 10^3/uL (3.29-11.43)
[2025-07-05 06:00] LABS: Estmated Average Glucose 103; Hemoglobin A1C 5.2 % (4.0-6.0)
[2025-07-05 06:02] LABS: Anion Gap 9.4 (5-19); Blood Urea Nitrogen 26 mg/dL (8-23); Calcium 7.8 mg/dL (8.5-10.5); Carbon Dioxide 25 mmol/L (22-29); Chloride 115 mmol/L (98-107); Glucose 92 mg/dL (65-115); Osmolality Calculated 306 mOsm/kg (285-295); Potassium 3.4 mmol/L (3.5-5.1); Sodium 146 mmol/L (136-145)
[2025-07-05] MEDS: lidocaine 1% 5 ML in potassium chloride premix 100 ML 52.5 ML IV (08:34)
[2025-07-05] MEDS: piperacillin-tazobactam 3.375 GM in sodium chloride 0.9% (plus) 50 ML IV ×2 (08:34→18:04)
[2025-07-05] MEDS: dextrose 5%-sod chloride 0.45% 1,000 ML 100 ML IV ×2 (08:35→21:07)
[2025-07-05 09:07] LABS: Ferritin 812 ng/mL (30-400); Iron 12 ug/dL (59-158); Total Iron Binding Capacity 86 mcg/dl; Unsaturated Iron Binding 74 ug/dL (112-347)
[2025-07-05 09:12] LABS: Procalcitonin 0.19 ng/mL (0-0.5)
[2025-07-05] MEDS: folic acid 1 MG, multivitamin inj 10 ML, thiamine 100 MG in sodium chloride 0.9% 1,000 ML 252.8 MG IV (11:07)
[2025-07-05] MEDS: Fleet Enema 133 mL Enema PR (11:07)
--- NOTE | 2025-07-05 13:13 | P.PN_ITS ---
Subjective 2 Subjective: - Patient was seen this morning - The following conversation was made us ing Sen[place]alese process mechanic, with nursing staff at bedside - Currently patient is alert oriented x 0, does not follow commands is obtunded, on nasal cannula, normotensive, - Patient's son Reggie is at bedside, Fito's was present over the phone listening into the conversation - reggie - Tells me that Fito has had a gradual decline over the last few weeks - A few weeks he was ambulating, did req uire assistance of activities of daily living, required assistance with feeding - But since then he has had drastic decl ine - He is nonambulatory, encephalopathic, sleeps throughout the day, he is not eating he is not drinking - Family is aware about his aspiration r isk, and they do the best with aspiration precautions, dysphagia diet - No falls, no injuries, he is moving hi s left hand /left arm less - They are not sure if he is have a stro ke or not? - He has had a drastic decline - Discussed with family his underlying P arkinson's disease, dementia, history of recurrent aspiration, aspiration pneumonia, mitral valve regurgitation, pulmonary hypertension, - Now appears cachectic, evidence of sev ere protein calorie malnutrition, respiratory failure, aspiration pneumonia, acute metabolic encephalopathy - Discussed with family that when he was hospitalized back in December there was concerns for recurrent aspiration, aspiration pneumonia, there was also concern for decline during that hospitalization with his underlying Parkinson's disease, and dementia It seems according to family he had improved to some degree-but again has had a significant decline -discussed with family overall goals of care - My worry is this is going to be Baekr new baseline level of functioning -After receiving about 24 hours of IV an tibiotics, IV fluids, his condition has not improved -We can certainly give him more time -Family would like vitamins, start him o n banana bag, thiamine, B12, folic acid -However nursing staff report that with anything Fito aspirates -Discussed with family that Fito has a very high aspiration risk, and likely is aspirating -This is one of the reasons why he is de clining due to aspiration pneumonia, aspiration pneumonitis -We can certainly give antibiotics, give him time however we are not fixing the underlying problem -He is recurrently aspirating due to his Parkinson's disease and dementia -Discussed options are available of -Placing a PEG tube placement, discussed risks and benefits of PEG tube placement, if we do put in a PEG tube we will committing him to not get any oral feeds, discussed quality versus quantity of life, -Discussed options of allowing him to ea t-oral feeds, aspiration precautions but understanding that he will continue to recurrently aspirate despite controlling for all the variables, adjusting his diet, aspiration precautions, and that he will likely have a revolving door of recurrent hospitalizations for aspiration pneumonia, aspiration pneumonitis, sepsis, respiratory failure, and morbidity mortality associated -But what I would recommend is that if jeremiah palomares choose letting him have oral meals to take him home on hospice -Discussed [facility] placement but irene harris wants to take him home -Discussed overall goals of care he is a full code -Discussed CPR, discussed intubation -Discussed with family that we can certa inly give him more time but my worry is this is going to be Baker baseline level of functioning -He might have some improvement, but I a m worried that he might not be ambulatory anymore, he might not be able to take oral feeds anymore, and as the family says for the last 2 weeks he has been sleeping most of the time that this might be his new baseline level of functioning -Discussed with family that in addition this could be the natural disease process of his dementia and his Parkinson's disease -After discussing risk benefits of all o ptions, patient's family voiced understanding, all questions answered, shared decision making -For now patient's family specifically ana bustillos's did not would not want any tubes, does not want any PEG tube placement -They want to have further discussion an d family meeting about his goals of care -They want to have further discussion ab out hospice and comfort care -For now they want to do a trial of medi hannah therapy -Discussed with family that overall his prognosis is poor, Vitals/I&O/Wt Last Vital Signs Temp 97.9 F 07/05/25 10:58 Pulse 90 07/05/25 10:58 Resp 17 07/05/25 10:58 BP 103/73 07/05/25 10:58 Pulse Ox 93 07/05/25 10:58 O2 Del Method Room Air 07/05/25 10:58 O2 Flow Rate 2 07/05/25 08:01 07/04/25 07/05/25 07/05/25 22:59 06:59 14:59 Intake Total 0 / 1746.85 1105 / 1105 Output Total 200 / 200 150 / 350 Balance -200 / 1546.85 -150 / 1396.85 1105 / 1105 Weight last 48 hrs Weight 46.408 kg Weight 46.357 kg Weight 49.895 kg Physical Exam 2 Const: COMMON NORMALS: no acute distress ORIENTATION/CONSCIOUSNESS: not awake, not oriented to person, not oriented to place and not oriented to time Resp: COMMON NORMALS: normal respiratory effort, No retractions and No use of accessory muscles AUSCULTATION: crackles and wheezes Cardio: COMMON NORMALS: regular rate, regular rhythm, S1 normal heart sound present and S2 normal heart sound present RATE: regular rate RHYTHM: r egular rhythm HEART SOUNDS: S1 normal heart sound present and S2 normal heart sound present GI: COMMON NORMALS: Normal to inspection, nondistended, normoactive bowel sounds present and non-tender Extremity: COMMON NORMALS: no pedal edema Neuro: SENSORIUM/ORIENTATION: No oriented to person, No oriented to place and No oriented to time Urinary Catheter Management: Ramos: Cath Placed During This Visit: yes Reason for Continuing Indwelling Catheter: Accurate Measurement of Urinary Output in Critically Ill Patients Urinary Catheter Date of Insertion: 07/04/25 Urinary Catheter Time of Insertion: 12:26 Data 07/05/25 05:30 07/05/25 05:30 Micro: Microbiology 07/04/25 11:41 Blood Culture - Preliminary Blood NEGATIVE TO DATE 07/04/25 11:50 Blood Culture - Preliminary Blood NEGATIVE TO DATE A&P Assessment and plan 1. Pneumonia: 2. Cachexia: 3. Altered mental status: 4. At high risk for falls: Plan: acute metabolic and toxic encephaloptahy - Secondary to underlying Parkinson disease, dementia - With sepsis secondary to aspiration pneumonia CVA? - According to family he is not moving his left arm - Currently held in a flexed position, he seems to have a flexion contracture of his left hand - Patient is diffusely encephalopathic difficult to do neurologic testing - Monitor - Will avoid aspirin given his acute anemia Aspiration Pneumonia FINDINGS: Moderate tortuosity of the thoracic aorta. Widening of the upper mediastinum is likely due to tortuous great vessel origins. The heart is not significantly enlarged. There is opacification in the left lower hemithorax which is secondary to airspace consolidation in the left lower lung and pleural effusion. Reticular interstitial and groundglass lung opacities are also present in the left lower lobe. Significant atelectasis in the right middle lobe. There are also reticular interstitial and groundglass lung opacities in the right lower lobe. Probable small right pleural effusion. - Keep n.p.o. - IV fluids - IV Zosyn Aspiration risk 11/10/2024 FL/FL barium swallow modifd 42805 IMPRESSION: 1. The patient readily aspirated thin liquid barium. There was also penetration into the laryngeal inlet when the patient ingested nectar consistency barium mixture foodstuffs. -Family declines PEG tube placement -Will await goals of care discussion with family and shared decision making Acute on chronic anemia - Recheck hemoglobin this afternoon Cachexia, physical deconditioning History of dementia and Parkinson disease FINDINGS: Brain: Mild cerebral white matter hypodensity which is most consistent with chronic small-vessel ischemic changes. Moderate cerebral and cerebellar volume loss. No mass effect or midline shift. No intracranial hemorrhage. Cerebral ventricles: No ventriculomegaly. Paranasal sinuses: Very small amount of ethmoid and sphenoid sinus mucosal thickening. Mastoid air cells: Visualized mastoid air cells are well aerated. Bones: Unremarkable. No acute fracture. Soft tissues: Unremarkable. full code scd for dvt prophylaxis, lovenox relatively contraindicated given anemia PDMP PDMP Reviewed: Not Reviewed Attestations 2 Medical Necessity Statement*: patient requires hospitalization for aspiration pneumonia, acute encephalopahty, anemia, hypernatremia Time Spent in Patient Care: patient requires hospitalization for aspiration pneumonia, acute encephalopahty, anemia, hypernatremia Coding Level of Care Code 11118 High Time for a total of 60 minutes, includes reviewing past or interval history, examining/interviewing patient, placing orders, counseling patient/family/other support, updating patient/family/other support, discussing plan of care with staff, documenting encounter and coordinating care Diagnoses Pneumonia J18.9 Cachexia R64 Altered mental status R41.82 At high risk for falls Z91.81
[2025-07-05 13:33] LABS: Hematocrit 29.7 % (37-53); Hemoglobin 9.00 g/dL (11.27-16.99); Mean Corpuscular HGB Conc 30.3 g/dL (30-55); Mean Corpuscular Hemoglobin 26.4 pg (27-33); Mean Corpuscular Volume 87.1 fl (82-101); Platelet Count 262 10^3/cmm (157-399); Red Blood Count 3.41 10^6/uL (3.85-5.65); White Blood Count 7.94 10^3/uL (3.29-11.43)
[2025-07-05 14:03] LABS: Total Cells Counted 100 (0-100)
[2025-07-05] MEDS: cyanocobalamin 1,000 mcg/mL SDV 1000 MCG IM (14:03)
[2025-07-05 14:06] LABS: Absolute Segmented Neutrophil 7.7 10/cmm (1.6-7.1); Band Neutrophils Absolute 0.0 10^3/cmm (0.0-1.2)
[2025-07-05 14:07] LABS: Atypical Lymphs 0.0 % (0-5)
[2025-07-05] MEDS: thiamine 100 mg/mL 2mL SDV IVP (18:05)
[2025-07-05] MEDS: morphine 4 mg/mL SDV 1 mL 2 MG IVP (18:11)
[2025-07-05] MEDS: pantoprazole 40 mg SDV IVP (21:06)
[2025-07-06] VITALS (7 sets, daily range): BP systolic 90–102; BP diastolic 60–68; PULSE 67–97; RESP 16–28; TEMP 36.3–37.5; O2SAT 90–94
[2025-07-06] MEDS: piperacillin-tazobactam 3.375 GM in sodium chloride 0.9% (plus) 50 ML IV ×2 (03:13→11:43)
[2025-07-06 06:09] LABS: Hematocrit 29.2 % (37-53); Hemoglobin 9.00 g/dL (11.27-16.99); Mean Corpuscular HGB Conc 30.8 g/dL (30-55); Mean Corpuscular Hemoglobin 26.9 pg (27-33); Mean Corpuscular Volume 87.4 fl (82-101); Nucleated Red Blood Cells % 0 %; Platelet Count 279 10^3/cmm (157-399); Red Blood Count 3.34 10^6/uL (3.85-5.65); White Blood Count 11.10 10^3/uL (3.29-11.43)
[2025-07-06 06:38] LABS: Alanine Aminotransferase 9 U/L (0-41); Albumin Level 2.0 g/dL (3.5-5.2); Alkaline Phosphatase 44 U/L (40-130); Anion Gap 12.3 (5-19); Aspartate Amino Transferase 14 U/L (0-40); Blood Urea Nitrogen 20 mg/dL (8-23); Calcium 7.6 mg/dL (8.5-10.5); Carbon Dioxide 23 mmol/L (22-29); Chloride 117 mmol/L (98-107); Creatinine Clr Calc Pharmacy 53.8164; Globulin 4.5 g/dL (1.3-4.6); Glucose 94 mg/dL (65-115); Osmolality Calculated 310 mOsm/kg (285-295); Potassium 3.3 mmol/L (3.5-5.1); Sodium 149 mmol/L (136-145); Total Protein 6.5 g/dL (6.6-8.7)
--- NOTE | 2025-07-06 09:10 | PC.SLP ---
Nursing reported pt is not appropriate/alert enough at this time. Will not attempt due to nursing requesting not to be seen.
--- NOTE | 2025-07-06 10:07 | PC.SOCIAL ---
Updated IMM Updated pt's son on IMM. No questions voiced. Provided son a copy. Initialed, dated, & timed a copy & placed in chart.
--- NOTE | 2025-07-06 13:30 | P.DS_ITS ---
Discharge Providers Date of Admission: 07/04/25 14:13 Date of Discharge: July 06, 2025 Attending Provider at Admission: Campbell Springer MD Attending Provider at Discharge: Dereck Rodriguez Primary Care Provider: Wilman Anand MD Diagnoses at Discharge Discharge Diagnosis 1. Pneumonia: 2. Cachexia: 3. Altered mental status: 4. At high risk for falls: Reason for Visit Reason for Visit: weakness Brief History: Fito Haywood is a 75 year old male with prior medical history of HTN, HLD, GERD, LUTS, palpitations, non-sustained V-tach, Parkinson's, fractures, fall, and mitral valve regurgitation presenting with complaints of generalized weakness. Family reports progressive weakness and altered mentation that has become progressively worse in the last two weeks, more pronounced in the last 2- 3 days. This morning, patient was able to eat some of an egg and yogurt. This afternoon, symptoms persisted and he he was found unresponsive and hypoxic. His blood pressures were running 70's systolic. Patient was transported via EMS to [facility] ED for assessment. Will admit to Hospitalist Service for further evaluation and treatment. Son, Reggie primary source of history. Family primary language is Latvian. Hospital Course Hospital Course He was started on treatment with IV antibiotic, with Zosyn for aspiration with possible aspiration pneumonia, received IV hydration, vitamins, other supportive care, but without improvement in his functional or mental status. With recurrent aspiration, recently with functional decline over the preceding weeks to months, extensive goals of care discussions took place during the time that he was hospitalized. Given with progressive functional decline, worsening parkinsonism symptoms, dementia, recurrent/persistent aspiration as also noted during the hospitalization, further consideration given to potential additional steps. Family on taking time to discuss and consider confirm they and he would not have wanted to pursue PEG tube for other supportive measures. Hospice care were discussed and hospice services were offered, however, family has been taking great care of him at home and so far have been comfortable to continue with comfort measures at home. As discussed with continued comfort measures morphine, Ativan are added as needed, they have been doing great with repositioning him. They are maintaining aspiration precautions with pleasure feeds. They state in case hospice services may become helpful they will reach back out to Dr. Anand or to us to help set it up. Physical Exam HENMT: COMMON NORMALS: oropharynx normal Neck/C-Spine: COMMON NORMALS: no JVD Resp: COMMON NORMALS: normal respiratory effort and clear to auscultation bilaterally AUSCULTATION: clear to auscultation bilaterally Cardio: COMMON NORMALS: no JVD, regular rhythm, S1 normal heart sound present, S2 normal heart sound present and No murmurs present (Cardio) RHYTHM: regular rhythm HEART SOUNDS: S1 normal heart sound present and S2 normal heart sound present GI: COMMON NORMALS: Normal to inspection, nondistended, normoactive bowel sounds present, Soft to palpation and non-tender PALPATION: Yes Soft to palpation Extremity: COMMON NORMALS: no joint enlargement and no pedal edema Skin: COMMON NORMALS: no rashes or lesions noted GENERAL SKIN EXAM: no rashes or lesions noted Urinary Catheter Management: Ramos: Cath Placed During This Visit: yes Reason for Continuing Indwelling Catheter: Hospice/Comfort/Palliative Care Urinary Catheter Date of Insertion: 07/04/25 Urinary Catheter Time of Insertion: 12:26 Discharge Data Studies Completed and Pending Completed Studies During Hospitalization Category Date Time Status CT head wo con* [id number] Stat Cat Scan 07/04/25 11:36 Completed XR chest 1V portable [id number] Stat Exams 07/04/25 11:29 Completed Pending at discharge Category Date Time Status Blood Culture Stat Lab 07/04/25 11:50 Results Complete Blood Count w/Auto AM LABS Lab 07/07/25 04:00 Ordered Complete Blood Count w/Auto AM LABS Lab 07/08/25 04:00 Ordered Comprehensive Metabolic Panel AM LABS Lab 07/07/25 04:00 Ordered Comprehensive Metabolic Panel AM LABS Lab 07/08/25 04:00 Ordered Occult Blood Stool [Immunochemical Fecal OCB] Routine Lab 07/05/25 08:23 Uncollected Radiology Impressions Chest X-Ray 07/04/25 11:29 IMPRESSION: Findings are most suggestive of bilateral pneumonitis, atelectasis, and pleural effusion. Patient had somewhat similar findings demonstrated on a CT scan of the chest 11/09/2024. Head CT 07/04/25 11:36 IMPRESSION: No acute intracranial abnormality. Laboratory Results WBC 11.10 10^3/uL (3.29-11.43) 07/06/25 05:31 RBC 3.34 10^6/uL (3.85-5.65) L 07/06/25 05:31 Hgb 9.00 g/dL (11.27-16.99) L 07/06/25 05:31 Hct 29.2 % (37-53) L 07/06/25 05:31 MCV 87.4 fl (82-101) 07/06/25 05:31 MCH 26.9 pg (27-33) L 07/06/25 05:31 MCHC 30.8 g/dL (30-55) 07/06/25 05:31 RDW 15.0 % (12.1-15.1) 07/06/25 05:31 Plt Count 279 10^3/cmm (157-399) 07/06/25 05:31 MPV 9.3 fL (7.4-10.4) 07/06/25 05:31 Neut % (Auto) 91.4 % 07/06/25 05:31 Lymph % (Auto) 6.1 % 07/06/25 05:31 [place] % (Auto) 1.7 % 07/06/25 05:31 Eos % (Auto) 0.1 % 07/06/25 05:31 Baso % (Auto) 0.2 % 07/06/25 05:31 Reticulocyte % (Auto) 1.0 % (0.5-2.0) 07/05/25 05:30 Neut # (Auto) 10.15 10^3/uL (1.8-7.7) H 07/06/25 05:31 Lymph # (Auto) 0.7 10^3/uL (0.8-4.8) L 07/06/25 05:31 [place] # (Auto) 0.2 10^3/uL (0.2-0.9) 07/06/25 05:31 Eos # (Auto) 0.0 10^3/uL (0.0-0.8) 07/06/25 05:31 Baso # (Auto) 0.0 10^3/uL (0.0-0.1) 07/06/25 05:31 Nucleated RBC % (auto) 0 % 07/06/25 05:31 Total Counted 100 (0-100) 07/05/25 13:18 Atypical Lymphs % 0.0 % (0-5) 07/05/25 13:18 Absolute Neutrophils 7.7 10^3/cmm (1.4-6.5) H 07/05/25 13:18 Segmented Neutrophils 97 % 07/05/25 13:18 Band Neutrophils 0.0 % 07/05/25 13:18 Absolute Lymphocytes 0.2 10^3/cmm (1.2-3.4) L 07/05/25 13:18 Lymphocytes (Manual) 3 % 07/05/25 13:18 Monocytes (Manual) 0.0 % 07/05/25 13:18 Absolute Monocytes 0.0 10^3/cmm (0.1-0.6) L 07/05/25 13:18 Eosinophils (Manual) 0 % 07/05/25 13:18 Absolute Eosinophils 0.0 10^3/cmm (0.0-0.7) 07/05/25 13:18 Basophils (Manual) 0.0 % 07/05/25 13:18 Absolute Basophils 0.0 10^3/cmm (0.0-0.2) 07/05/25 13:18 Nucleated RBCs # 0.0 /100WBC 07/06/25 05:31 Platelet Estimate Normal (Normal) 07/05/25 13:18 PT 15.60 SECONDS (12.1-14.9) H 07/04/25 11:41 INR 1.15 (0.8-1.2) 07/04/25 11:41 Specimen Type Arterial 07/04/25 11:33 Sample Site Radial, right 07/04/25 11:33 ABG pH 7.52 (7.35-7.45) H 07/04/25 11:33 ABG pCO2 33.5 mmHg (35-45) L 07/04/25 11:33 ABG pO2 59.6 mmHg (80.0-100.0) L 07/04/25 11:33 ABG PO2/FiO2 Ratio 149 07/04/25 11:33 ABG HCO3 27.0 mmol/L (22-26) H 07/04/25 11:33 ABG O2 Saturation 92.4 07/04/25 11:33 ABG Base Excess 4.1 mmol/L (-2.0-2.0) H 07/04/25 11:33 Evans Test Pos 07/04/25 11:33 A-a O2 Gradient 24.0 mmHg (5-10) H 07/04/25 11:33 Hematocrit 33.3 % (42-52) L 07/04/25 11:33 Hgb O2 Saturation 90.6 % (95-100) L 07/04/25 11:33 Carboxyhemoglobin 1.0 %THgb (0.4-20.1) 07/04/25 11:33 Methemoglobin 1.0 % (0.4-1.5) 07/04/25 11:33 Total Hemoglobin 10.9 g/dL (14-18) L 07/04/25 11:33 Sodium 145.0 mmol/L (131-143) H 07/04/25 11:33 Potassium 3.4 mmol/L (3.5-5.0) L 07/04/25 11:33 Glucose 130.0 mg/dL (70-115) H 07/04/25 11:33 Ionized Calcium 1.2 mmol/L (1.1-1.4) 07/04/25 11:33 O2 Delivery Device Nc 07/04/25 11:33 O2 Liters/Min 5.0 % 07/04/25 11:33 FiO2 40.0 % 07/04/25 11:33 Supervisor Glycerin ID Amh 07/04/25 11:33 Sodium 149 mmol/L (136-145) H 07/06/25 05:31 Potassium 3.3 mmol/L (3.5-5.1) L 07/06/25 05:31 Chloride 117 mmol/L (98-107) H 07/06/25 05:31 Carbon Dioxide 23 mmol/L (22-29) 07/06/25 05:31 Anion Gap 12.3 (5-19) 07/06/25 05:31 BUN 20 mg/dL (8-23) 07/06/25 05:31 Creatinine 0.5 mg/dL (0.7-1.2) L 07/06/25 05:31 GFR Calculation Not Reportable 07/06/25 05:31 Glucose 94 mg/dL (65-115) 07/06/25 05:31 Estimat Average Glucose 103 07/05/25 05:30 Hemoglobin A1c 5.2 % (4.0-6.0) 07/05/25 05:30 Calculated Osmolality 310 mOsm/kg (285-295) H 07/06/25 05:31 Lactic Acid 2.5 mmol/L (0.5-2.2) H 07/04/25 11:41 Lactic Acid (Sepsis) 2.1 mmol/L (0.5-2.2) 07/04/25 15:11 Calcium 7.6 mg/dL (8.5-10.5) L 07/06/25 05:31 Magnesium 2.2 mg/dL (1.7-2.3) 07/04/25 11:41 Iron 12 ug/dL (59-158) L 07/05/25 05:30 TIBC 86 mcg/dl 07/05/25 05:30 % Saturation 13.9 % (20-50) L 07/05/25 05:30 Unsat Iron Binding 74 ug/dL (112-347) L 07/05/25 05:30 Ferritin 812 ng/mL (30-400) H 07/05/25 05:30 Total Bilirubin 0.9 mg/dL (0.15-1.2) 07/06/25 05:31 AST 14 U/L (0-40) 07/06/25 05:31 ALT 9 U/L (0-41) 07/06/25 05:31 Alkaline Phosphatase 44 U/L (40-130) 07/06/25 05:31 Ammonia 22 umol/L (16-60) 07/04/25 11:41 Creatine Kinase 74 U/L (39-308) 07/04/25 11:41 C-Reactive Protein 123.8 mg/L (0.0-4.9) H 07/05/25 05:30 Total Protein 6.5 g/dL (6.6-8.7) L 07/06/25 05:31 Albumin 2.0 g/dL (3.5-5.2) L 07/06/25 05:31 Globulin 4.5 g/dL (1.3-4.6) 07/06/25 05:31 Procalcitonin 0.19 ng/mL (0-0.5) 07/05/25 05:30 Urine Color [place] (Yellow) A 07/04/25 12:09 Urine Appearance Clear (CLEAR) 07/04/25 12:09 Urine pH 5.5 (5-7) 07/04/25 12:09 Ur Specific [place] 1.028 (1.005-1.030) 07/04/25 12:09 Urine Protein 1+ (Negative) A 07/04/25 12:09 Urine Glucose (UA) Negative (Normal) 07/04/25 12:09 Urine Ketones Negative (Negative) 07/04/25 12:09 Urine Blood Negative (Negative) 07/04/25 12:09 Urine Nitrate Negative (Negative) 07/04/25 12:09 Urine Bilirubin 1+ (Negative) H 07/04/25 12:09 Urine Urobilinogen 2.0 mg/dL (Negative) H 07/04/25 12:09 Ur Leukocyte Esterase Trace (Negative) A 07/04/25 12:09 Urine RBC 0-2 /hpf (0-2) 07/04/25 12:09 Urine WBC 0-5 /hpf (0-5) 07/04/25 12:09 Ur Squamous Epith Cells 0-5 /hpf (0-5) 07/04/25 12:09 Amorphous Sediment Not Reportable 07/04/25 12:09 Urine Bacteria None seen /hpf (NONE) 07/04/25 12:09 Hyaline Casts 7.85 /lpf 07/04/25 12:09 Vitals Last Vital Signs Temp 97.4 F L 07/06/25 11:58 Pulse 91 07/06/25 11:58 Resp 28 H 07/06/25 11:58 BP 100/65 07/06/25 11:58 Pulse Ox 94 07/06/25 11:58 O2 Del Method Nasal Cannula 07/06/25 11:58 O2 Flow Rate 2 07/05/25 08:01 Discharge Plan Discharge Patient Disposition: Home Condition: Fair Prescriptions: New morphine concentrate 100 mg/5 mL (20 mg/mL) solution 10 mg sublingual Q4H PRN (Reason: pain) Qty: 30 0RF lorazepam [Lorazepam Intensol] 2 mg/mL concentrate 1 mg sublingual Q12H PRN (Reason: agitation) Qty: 30 0RF amoxicillin-pot clavulanate 400-57 mg/5 mL suspension for reconstitution 10 ml PO BID 5 Days Qty: 100 0RF Continued multivitamin Tablet 1 tab PO DAILY (DME) Cuff and Collar See Rx Instructions .Route .MEDSUPPLY Qty: 1 0RF Rx Instructions: As directed carbidopa-levodopa 50-200 mg tablet extended release 2 tab PO BID tamsulosin 0.4 mg Capsule 0.4 mg PO DAILY Qty: 30 0RF hydralazine 10 mg tablet 10 mg PO BID PRN (Reason: bp) pantoprazole 40 mg tablet,delayed release (DR/EC) 40 mg PO DAILY midodrine 2.5 mg tablet 2.5 mg PO TID Linzess 290 mcg capsule 290 mcg PO DAILY Other Ambulatory Orders: DME: Miscellaneous (Order) Location: None Selected Ordered By: Dereck Rodriguez Referrals: Wilman Anand MD [Primary Care Provider, [facility]] - 4-7 days Discharge Diet: Advance as tolerated and As Directed Discharge Activity: Resume usual activity Patient Instructions: Comfort Measures (GEN), Patient Portal & [place] Instructions Activity Restrictions/Additional Instructions: Continue supportive measures, comfort measures, aspiration precautions, continue to turn every 2 hours as you have been. Use morphine as needed for pain, Ativan as needed for anxiety or agitation. In case you find it useful to seek additional support from hospice, please reach back out to case management or to Dr. Anand to help set it up. Discharge Attestations Time Spent in Discharge Care*: greater than 30 min Status at Discharge: Cognitive status at discharge: mildly impaired cognition , Behavioral status at discharge: cooperative , Quality Metrics Clinical Quality Measures [ No reported AMI, CVA or VTE this stay] Coding Level of Care Code 41717 Total time (in minutes) for Discharge: 50 Diagnoses Pneumonia J18.9 Cachexia R64 Altered mental status R41.82 At high risk for falls Z91.81
== END 2025-07-06 15:20 | disposition home or self-care (01) | DRG 177 ==
LOC: ER 13:09 → MEDSURG 14:13
PROVIDERS: Clinical Nurse Specialist Acute Care; Family Medicine; Admitting Provider Family Medicine; Emergency Provider Emergency Medicine; PCP Family Medicine; Visit Provider Internal Medicine
DX: J69.0 Pneumonitis due to inhalation of food and vomit (principal); E43 Unspecified severe protein-calorie malnutrition; G93.41 Metabolic encephalopathy; Z68.1 Body mass index [BMI] 19.9 or less, adult; I47.20 Ventricular tachycardia, unspecified; E87.0 Hyperosmolality and hypernatremia; I10 Essential (primary) hypertension; E78.5 Hyperlipidemia, unspecified; K21.9 Gastro-esophageal reflux disease without esophagitis; G20.A1 Parkinson's disease without dyskinesia, without mention of fluctuations; F02.80 Dementia in other diseases classified elsewhere, unspecified severity, without behavioral disturbance, psychotic disturbance, mood disturbance, and anxiety; I34.1 Nonrheumatic mitral (valve) prolapse; R40.4 Transient alteration of awareness; R09.02 Hypoxemia; N40.1 Benign prostatic hyperplasia with lower urinary tract symptoms; I27.20 Pulmonary hypertension, unspecified; D64.9 Anemia, unspecified
CPT/HCPCS: 36415; 36600; 51702; 70450; 71045; 80048; 80051; 80053; 81001; 82140; 82330; 82550; 82728; 82805; 83036; 83540; 83550; 83605; 83735; 84145; 85007; 85025; 85027; 85045; 85610; 86140; 87040; 92610; 93005; 94664; 94760; 96365; 96372; 96375; 99285; J0456; J0696; J2270; J2470; J2543; J3411; J3420; J3480; J3490; J7030; J7050; J7120; J7799; J9999